=== PATIENT | male | born 1950 | race Caucasian/White ===

== ENCOUNTER 2022-10-16 09:58 | Emergency (ER) | payer MEDICARE, OTHER, SELFPAY ==
[2022-10-16 10:10] VITALS: BP 124/74; PULSE 78; RESP 18; TEMP 37; O2SAT 96; BMI 27.0
--- NOTE | 2022-10-16 16:52 | ED.GENADULT ---
HPI - General Adult General Date Seen: 10/16/22 Chief complaint: Ear/Nose/Throat Problem Stated complaint: Both ears plugged Time Seen by Provider: 10/16/22 10:19 Source: patient History of Present Illness HPI narrative: Patient is a 71-year-old male who presents with a sensation of ear fullness and difficulty hearing. He is also having some imbalance related to this. No ringing. He says that the beginning of September he was diagnosed with an ear infection on the left. He has been using drops and also took amoxicillin. He continues to use the drops but says they are not helping. Now has symptoms of this fullness in both ears but does not have pain anymore. No fevers or systemic complaints. Does not have facial pain or congestion, no sore throat, cough, or other upper respiratory symptoms. He says he has had problems with his ears in the past, he has seen Dr. Rodriguez and at least on 1 occasion he says he had some stuff ?sucked out and symptoms were completely resolved. Related Data Home Medications Medication Instructions Recorded Confirmed ascorbic acid (vitamin C) 250 mg 250 mg PO DAILY 06/02/22 09/22/22 tablet clonazepam 1 mg tablet 1 mg PO TID PRN 06/02/22 09/22/22 fluoxetine 10 mg tablet 10 mg PO DAILY 06/02/22 09/22/22 glucosamine sulfate 500 mg capsule 500 mg PO DAILY 06/02/22 09/22/22 lidocaine 5 % topical ointment 1 applic mucous membrane .Daily as 06/02/22 09/22/22 needed PRN multivitamin (Multiple Vitamins 1 tab PO QAM 06/02/22 09/22/22 tablet) Previous Rx's Medication Instructions Recorded salsalate 500 mg tablet 1,000 mg PO BID #120 tabs 06/26/22 amoxicillin 875 mg tablet 875 mg PO BID #20 tabs 09/22/22 ciprofloxacin 0.3 %-dexamethasone 4 - 6 drp otic (ear) QID 4 days 09/22/22 0.1 % ear drops,suspension #7.5 mL (Ciprodex) oxycodone 5 mg tablet 5 mg PO TID PRN pain #45 tabs 09/24/22 cephalexin 500 mg capsule 500 mg PO QID #20 caps 10/16/22 Allergies Allergy/AdvReac Type Severity Reaction Status Date / Time acetaminophen Allergy Mild Malaise Verified 09/22/22 14:53 amitriptyline Allergy Unknown afib Verified 09/22/22 14:53 metoprolol Allergy Unknown Fainting Verified 09/22/22 14:53 Review of Systems Status of ROS: Reports: 6 or more systems reviewed and unremarkable except as noted in History and below [facility] Medical History Adverse effect of non-steroidal anti-inflammatory drug (NSAID) Anticoagulation goal of INR 2 to 3 Cardiovascular disease (2007) Disorder of middle ear History of anal fissures (2014) History of colonic polyps (03/2015) History of compression fracture of spine (11/25/18) History of inflammation of sacroiliac joint (10/28/18) Opioid dependence Surgical History History of cholecystectomy (2014) History of lumbar fusion (03/25/15) History of total left hip replacement Family History Father Diabetes Mother Diabetes Social History Smoking Status: Never smoker Do you use any of these nicotine containing products: None How often do you have a drink containing alcohol: never AUDIT-C Alcohol total score: 0 Non-prescribed substance use: denies use Little interest or pleasure in doing things: not at all Feeling down, depressed, or hopeless: not at all Exam Narrative: Exam Narrative: Vital signs as noted above. In general, an alert, well-appearing patient. Head: Normocephalic, atraumatic. Eyes: Pupils are equal reactive. Extraocular movements are full. Conjunctivae are normal. ENT: Mucous membranes are moist. Throat is normal. I am unable to well visualize either TM, the canals seems slightly narrow although they are not erythematous or painful. There is purulent material obstructing both TMs, landmarks are not seen. No erythema over mastoids. Neck: Supple without lymphadenopathy. Heart: Regular rate and rhythm. No murmur or rub. Lungs: Clear bilaterally. No increased work of breathing, crackles or wheezes. Neurologic: Patient is alert and oriented to person and place. Speech is fluent. Face is symmetric. Moves all extremities equally. Affect: Normal. Skin: Warm and dry. Well perfused. Const: Vital Signs, click to edit/add: Vital Signs - 24 hr 10/16/22 10:10 Temperature 98.6 F Pulse Rate [Pulse Oximeter] 78 Respiratory Rate 18 Blood Pressure [Ri ght Upper Arm] 124/74 Pulse Oximetry 96 Oxygen Delivery Me thod Room Air Documenting provider has reviewed patient's vital signs: yes Course Course Hospital Course: I was able to speak briefly with Dr. Rodriguez, will go ahead and start an oral antibiotic, patient says he had trouble with nausea with the amoxicillin so I am going to use Keflex rather than Augmentin. Dr. Rodriguez is going to see him on Wednesday. Steroids not needed at this time. It may be that with removal of the debris in his external auditory canals his symptoms will improve. He is not toxic in appearance, not febrile. Is not having any ear pain, no evidence of mastoiditis or more ominous infection. Vital Signs Vital signs: Initial Vital Signs Temperature 98.6 F 10/16/22 10:10 Temperature Source Temporal Artery Scan 10/16/22 10:10 Pulse Rate 78 10/16/22 10:10 Pulse Rhythm 10/16/22 10:10 Respiratory Rate 18 10/16/22 10:10 Blood Pressure 124/74 10/16/22 10:10 Blood Pressure Mean 90 10/16/22 10:10 Blood Pressure Position Sitting 10/16/22 10:10 Pulse Oximetry 96 10/16/22 10:10 Oxygen Delivery Method 10/16/22 10:10 Vital Signs Temperature 98.6 F 10/16/22 10:10 Pulse Rate 78 10/16/22 10:10 Respiratory Rate 18 10/16/22 10:10 Blood Pressure 124/74 10/16/22 10:10 Pulse Oximetry 96 10/16/22 10:10 Oxygen Delivery Method 10/16/22 10:10 Temperature 98.6 F 10/16/22 10:10 Pulse Rate 78 10/16/22 10:10 Respiratory Rate 18 10/16/22 10:10 Blood Pressure 124/74 10/16/22 10:10 Pulse Oximetry 96 10/16/22 10:10 Oxygen Delivery Method 10/16/22 10:10 Discharge Plan Discharge Clinical Impression: Otitis externa Patient Disposition: Home, Self-Care Condition: Stable Instructions: Otitis Externa (ED) Additional Instructions: Antibiotic as prescribed. After reviewing your note from your visit with Dr. Rodriguez at the beginning of the month, it appears that your symptoms are mostly from an external ear infection. I talked to Dr. Rodriguez, and he would like to hold off on prednisone, he will see you in clinic on Wednesday to see if there is fluid in your canals that can be removed to help with your symptoms. Prescriptions: New cephalexin 500 mg capsule 500 mg PO QID Qty: 20 0RF No Action glucosamine sulfate 500 mg capsule 500 mg PO DAILY ascorbic acid (vitamin C) 250 mg tablet 250 mg PO DAILY fluoxetine 10 mg tablet 10 mg PO DAILY multivitamin [Multiple Vitamins] Tablet 1 tab PO QAM lidocaine 5 % ointment 1 applic mucous membrane .Daily as needed PRN Rx Instructions: Apply a thin film topically to affected area(s) daily as needed clonazepam 1 mg tablet 1 mg PO TID PRN salsalate 500 mg tablet 1,000 mg PO BID Qty: 120 5RF amoxicillin 875 mg tablet 875 mg PO BID Qty: 20 3RF ciprofloxacin-dexamethasone [Ciprodex] 0.3-0.1 % drops,suspension 4 - 6 drp otic (ear) QID 4 Days Qty: 7.5 2RF oxycodone 5 mg tablet 5 mg PO TID PRN (Reason: pain) Qty: 45 0RF Follow Up/Referrals: Charbel Dominguez MD [Primary Care Provider] - Stand Alone Forms: [facility] Info Instructions
== END 2022-10-16 11:19 | disposition home or self-care (01) ==
PROVIDERS: Emergency Provider Emergency Medicine; PCP Family Medicine
DX: H60.93 Unspecified otitis externa, bilateral (principal)
CPT/HCPCS: 99283; 99284

== ENCOUNTER 2023-01-11 09:00 | Outpatient (CLI) | payer MEDICARE, OTHER, SELFPAY ==
[2023-01-11 14:16] LABS: Albumin* 4.1 g/dL (3.3-5.0); Chloride* 104 mmol/L (96-114); Sodium* 139 mmol/L (135-149)
[2023-01-11 14:17] LABS: Potassium* 4.3 mmol/L (3.6-5.1)
[2023-01-11 14:18] LABS: Cholesterol* 233 mg/dL (90-199)
[2023-01-11 14:19] LABS: Alkaline Phosphatase* 76 U/L (40-150); Aspartate Amino Transferase* 21 U/L (12-35); Bilirubin Total* 0.8 mg/dL (0.1-1.5); Blood Urea Nitrogen* 18 mg/dL (7-30); Carbon Dioxide* 30 mmol/L (20-32); Creatinine* 0.8 mg/dL (0.5-1.5); Estimated Glomerular Filt Rate 94 ml/min; Glucose* 88 mg/dL (60-115); Total Protein* 6.6 g/dL (6.0-8.3); Triglycerides* 109 mg/dL (40-149)
[2023-01-11 14:20] LABS: Alanine Aminotransferase* 20 U/L (4-50); HDL Cholesterol* 68 mg/dL (>=40); LDL Cholesterol Calculated 143 mg/dL (<100)
[2023-01-11 14:35] LABS: PSA Screen* 3.07 ng/mL (0.10-4.00)
== END 2023-01-11 09:01 | disposition home or self-care (01) ==
PROVIDERS: PCP Family Medicine; Visit Provider Family Medicine
DX: Z00.00 Encounter for general adult medical examination without abnormal findings (principal); D64.9 Anemia, unspecified; I25.10 Atherosclerotic heart disease of native coronary artery without angina pectoris; N40.0 Benign prostatic hyperplasia without lower urinary tract symptoms; F41.9 Anxiety disorder, unspecified; Z12.5 Encounter for screening for malignant neoplasm of prostate; Z13.6 Encounter for screening for cardiovascular disorders
CPT/HCPCS: 80053; 80061; 84153

== ENCOUNTER 2023-12-03 15:17 | Outpatient (CLI) | payer OTHER, SELFPAY | END 2023-12-03 15:18 | disposition home or self-care (01) | LOC: LKVREF 15:18 | PROVIDERS: PCP Family Medicine; Visit Provider Family Medicine | DX: Z01.818 Encounter for other preprocedural examination (principal); I48.91 Unspecified atrial fibrillation | CPT/HCPCS: 80053 ==

== ENCOUNTER 2023-12-06 12:47 | Outpatient (RCR) | payer OTHER, SELFPAY ==
--- NOTE | 2023-12-06 14:16 | PT.OPEX ---
PT [facility] Eval PT [facility] Outpatient Eval Start: 12/06/23 13:57 Freq: Status: Active Protocol: Document 12/06/23 14:01 WILLIS (Rec: 12/06/23 14:14 WILLIS [id number]) E-signed By Nisha Romero DPT Physical Therapy Outpatient Evaluation Insurance Information Recert Due Date 03/05/24 Insurance Name Medicare B,[employer] Medical Diagnosis L knee OA, L knee pain scheduled for L TKA 12/13/23 Treating Diagnosis L knee pain, impaired L knee ROM, L TKA scheduled for Subjective Subjective Patient reports chronic L knee pain leading up to L TKA scheduled for 12/13/23. States he had L IOANA about 8 years ago. He no longer has a FWW, will need one issued after surgery. [place] He can stay there as long as needed after surgery. He is planning to go to OP PT at a clinic near her home - has not scheduled his OP PT yet. L knee pain rated 5-8/10. Patient feels he has a high pain tolerance that should help him with his recovery after surgery. Patient's daughter works from home and will be able to assist him as needed. Date of Last Physician Visit 10/25/23 Date of Surgery (If applicable) 12/13/23 Precautions Treatment Precautions/Contraindications hx L IOANA, heart condition, OA Assessment Assessment/Impression Patient is a 72 year old male with chronic L knee pain, impaired L knee ROM leading up to L TKA scheduled for . Patient is seen in PT today for pre-op session to provide education/information on upcoming TKA surgery, safety information/HO, equipment instruction including use of FWW, and instruction in TKA exercises. Handouts issued for exercises , patient to perform them leading up to surgery. Reviewed PT/OT plan during hospital stay. Patient is planning to stay with his daughter after surgery. She lives in a multi level home with one stair to enter. Patient thinks there is a railing to enter or will hold onto the door frame. Once inside he can mainly stay on one level but will need to go to the lower level for the bedroom they are setting up for him. He reports negotiating stairs with a step to pattern at this time. Reviewed with patient that he will be negotiating stairs with a step to pattern after surgery as well until his strength improves and he progresses with PT back to reciprocal pattern. Patient is planning to go to OP PT near his daughter's home in the [facility] - he has not scheduled this yet. Recommended he schedule this today or tomorrow. Patient will call the OP PT clinic this afternoon. Reviewed equipment needs including FWW, shower chair, toilet commode. Answered patient questions on upcoming TKA surgery and HOs issued. Patient seen today for pre-op only. OP PT after L TKA will be at another clinic. No further PT scheduled at this clinic. Plan of Care Rehabilitation Potential Good Physical Therapy Goals 1. Patient will be educated in TKA pre/post-op safety, mobility, and exercises with HOs provided within one visit with patient planning to go to OP PT in the [facility] after his L TKA surgery on . Coordination/Communication With Referral Source Frequency/Duration Pre-op eval only Patient Will Be Discharged From Therapy Completion of LTG(s),Skills Plateau,Independent w/HEP, Independently Progressing Evaluation Billing Untimed Code Treatment Minutes 35 Complexity Low Certification Information Initial Certification Date 12/06/23 Ending Certification Date 03/05/24 Provider Signature Shows Agreement With POC & Medical Necessity Physician Signature & Date Requested Please Sign/Date Here Physician Comment/Change : Physician NPI Number #
== END 2024-04-04 23:59 | disposition home or self-care (01) ==
PROVIDERS: PCP Family Medicine; Visit Provider Orthopaedic Surgery Sports Medicine
DX: M17.12 Unilateral primary osteoarthritis, left knee (principal); M25.562 Pain in left knee; Z96.652 Presence of left artificial knee joint; Z74.09 Other reduced mobility; Z51.89 Encounter for other specified aftercare
CPT/HCPCS: 97161

== ENCOUNTER 2023-12-13 06:02 | Day surgery (SDC) | payer OTHER, SELFPAY ==
[2023-12-13] VITALS (25 sets, daily range): BP systolic 99–133; BP diastolic 59–88; PULSE 61–80; RESP 14–18; TEMP 35.7–37.1; O2SAT 94–99; BMI 26.7
--- OUTSIDE RECORDS SUMMARY | 2023-12-13 06:06 | XMS_ITS | Clinical Summary ---
Author Name Unknown Organization [facility] Address [place], [place] [address] Care Team Providers Care Abstract Maker Name Role Phone Charbel Dominguez MD Primary Care Provider [phone] Allergies Active Allergy Reactions Criticality Noted Date Comments Amiodarone Other - Describe In Comment Field 10/17/2018 Terrible pain, can't speak, burning pain Amitriptyline Other - Describe In Comment Field Medium 08/21/2015 Atrial fib. syncope Hydrocodone Other - Describe In Comment Field High 06/20/2019 [place] high Melatonin Other - Describe In Comment Field 08/18/2019 Nightmares Metoprolol Other - Describe In Comment Field,*Unknown - Follow up needed Medium 08/21/2015 syncope Mirtazapine Hallucinations High 08/21/2015 Olanzapine Other - Describe In Comment Field 06/13/2019 Trouble with eyes and body pain Medications Medication Sig Dispensed Refills Start Date End Date Status FLUoxetine (PROZAC) 10 mg capsule Take 10 mg by mouth. 0 09/26/2019 Active diltiazem (CARDIZEM) 60 mg tablet Take 1 tablet by mouth once daily if needed for Other (Specify) (palpitations). 0 10/24/2019 Active clonazePAM (KLONOPIN) 1 mg tablet Take 1 mg by mouth 3 times daily if needed. 0.5mg TID PRN 0 10/24/2019 Active multivitamin (MVI) tablet Take 1 tablet by mouth once daily. 0 Active glucosam-chondroitin -diet cb25 116-100 mg cap Take 1 tablet by mouth once daily. 0 Active QUEtiapine (SEROQUEL) Take 50 mg by mouth at bedtime. 0 Active amoxicillin (AMOXIL) 500 mg capsule Take 1 capsule by mouth 3 times daily. 30 capsule 0 02/20/2020 Active Social History Tobacco Use Types Packs/Day Years Used Date Smoking Tobacco: Former Smokeless Tobacco: Never Alcohol Use Standard Drinks/Week Comments Not Currently 0 (1 standard drink = 0.6 oz pur e alcohol) PHQ-2 Answer Date Recorded PHQ-2 Score 3 12/19/2019 Social Connections Answer Date Recorded Frequency of Communication with Friends and Fami ly Not on file 11/22/2021 Financial Resource Strain Answer Date R ecorded Difficulty of Paying Living Expenses Not on file 11/22/2021 Difficulty of Paying Living Expenses Not on file 11/22/2021 Sex and Gender Information Value Date Recorded Sex Assigned at Not on file Gender Identity Not on file Sexual Orientation Not on file Obstetrics History Last Filed Vital Signs Vital Sign Reading Time Taken Comments Blood Pressure 125/80 08/18/2021 7:00 PM CDT Pulse 70 08/18/2021 7:00 PM CDT Temperature 36.7 ??C (98 ??F) 08/18/2021 4:09 PM CDT Respiratory Rate 16 08/18/2021 4:09 PM CDT Oxygen Saturation 98% 08/18/2021 7:00 PM CDT Inhaled Oxygen Concentration - - Weight 93.4 kg (206 lb) 08/18/2021 4:09 PM CDT Height 188 cm (6' 2) 08/18/2021 4:09 PM CDT Body Mass Index 26.45 08/18/2021 4:09 PM CDT Plan of Treatment Health Maintenance Due Date Last Done Comments Tdap 1961 Hepatitis C screening for age 18-79 1968 Tetanus booster 1970 Colonoscopy through age 75 1995 Lipids for age 45-75 1995 Zoster (shingles) series for age 50+ (1 of 2) 2000 Medicare Wellness for age 65+ 2015 Pneumococcal series for age 65+ (1 of 1 - PCV) 2015 BMI (ht and wt on same day) for age 18+ 11/01/2020 1 01/02/2019 Depression screening for age 12+ 12/19/2020 12/19/19 20 COVID-19 vaccine series ( - season) 2023 02/14/2021, 01/24/2021 Influenza for age 65+ 07/23/2023 Advance Directives Latest Code Status on File Code Status Date Activated Date Inactivated Comments Full Code 12/19/2019 11:44 AM 12/20/2019 1:45 PM Question Answer Comments Code Status Discussion: Not Discussed Care Teams Abstract Maker Relationship Specialty Start Date End Date Charbel Dominguez MD [address] [place] [address] PCP - General Family Practice 09/15/19
--- OUTSIDE RECORDS SUMMARY | 2023-12-13 06:06 | XMS_ITS | Clinical Summary ---
Author Name Unknown Organization [facility] Address [address] [place] [id number] Care Team Providers Care Supervisor Inspection Name Role Phone No Ref-Primary, Physician Primary Care Provider Allergies Active Allergy Reactions Criticality Noted Date Comments Amiodarone Other (See Comments) Medium 10/17/2018 Terrible pain, can't speak, burning pain Amitriptyline Other (See Comments) Medium 08/21/2015 syncope Hydrocodone Other (See Comments) Medium 06/20/2019 [place] high Melatonin Other (See Comments) Low 08/18/2019 Nightmares Metoprolol Dizziness Medium 08/21/2015 syncope Mirtazapine Medium 08/21/2015 Other reaction(s): Hallucinations Olanzapine Other (See Comments) Medium 06/13/2019 Trouble with eyes and body pain Medications Medication Sig Dispensed Refills Start Date End Date Status glucosamine-chondroitin 500-400 MG CAPS per capsule Take 1 capsule by mouth daily 0 Active Multiple Vitamins-Minerals (MULTIVITAMIN & MINERAL PO) Take 1 tablet by mouth daily 0 Active warfarin ANTICOAGULANT (COUMADIN) 4 MG tablet Take 8 mg by mouth daily 0 Active clonazePAM (KLONOPIN) 0.5 MG tablet Take 0.5 mg by mouth 3 times daily as needed for anxiety 0 Active Polyvinyl Alcohol-Povidone (CLEAR EYES NATURAL TEARS) 5-6 MG/ML SOLN Place 1 drop into both eyes 3 times daily as needed 0 Active QUEtiapine (SEROQUEL) 50 MG tablet Take 50 mg by mouth PRN 0 08/21/2019 Active Active Problems Problem Noted Date Diagnosed Date Major depressive disorder, recurrent episode, mo derate 08/19/2019 Recurrent major depressive disorder (H24) 2017 Spinal stenosis of lumbar region 09/23/2018 Overview: Added automatically from request for surgery [id number] History of falling 08/31/2018 Anal fissure 07/13/2018 Overweight 07/13/2018 Opioid dependence in remission 06/28/2018 Overview: Pain Diagnosis- OA, recent hip replacement 06/2018- hope to taper off soon Should be seen in the clinic every twelve weeks. Currently on a taper: no. Plan for flares of chronic pain ED and UC: Opioid medication will not be given in the ER or Urgent Care unless there is a medical emergency unrelated to chronic pain. Limit to 3 day supply Refills: Refills will only be given at a scheduled visit. 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 lumbar back fusion, degenerative arthritis throughout his spine from cervical to lumbar spine. He also struggles with neuropathic pain Should be seen in the clinic every twelve weeks. Currently on a taper: no. Plan for flares of chronic pain : prays, oxycodone prn ED and UC: Opioid medication will not be given in the ER or Urgent Care unless there is a medical emergency unrelated to chronic pain. Limit to 3 day supply Refills: Refills will only be given at a scheduled visit. 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 Atrial fib. IMO Update 09/01 Gastroesophageal reflux disease 05/10/2008 Immunizations Name Administration Dates Next Due DTAP (<7y) 05/02/2010 Influenza (High Dose) 3 valent vaccine 8,09/21/2017,08/26/2016 Influenza Vaccine >6 months,quad, PF 08/21/2019, 11/01/2015 TDAP Vaccine (Adacel) 05/02/2010 Family History Medical History Relation Comments Diabetes Father Diabetes Mother Relation Status Comments Father Mother Social History Tobacco Use Types Packs/Day Years Used Date Smoking Tobacco: Never Smokeless Tobacco: Never Tobacco Cessation:Counseling Given: Yes Alcohol Use Standard Drinks/Week Comments Not Currently 0 (1 standard drink = 0.6 oz pur e alcohol) PHQ-2 Answer Date Recorded PHQ-2 Score 2 12/06/2019 Adolescent Education Answer Date Record ed Getting School Help Needed Not on file 08/29 Sex and Gender Information Value Date Recorded Sex Assigned at Not on file Gender Identity Not on file Sexual Orientation Not on file Last Filed Vital Signs Vital Sign Reading Time Taken Comments Blood Pressure 138/80 10/20/2019 1:29 PM CIRCUIT BREAKER MECHANIC Pulse 73 10/20/2019 1:29 PM CIRCUIT BREAKER MECHANIC Temperature 36.7 ??C (98 ??F) 10/20/2019 1:29 PM CIRCUIT BREAKER MECHANIC Respiratory Rate 18 08/16/2019 1:08 PM CDT Oxygen Saturation 95% 10/20/2019 1:29 PM CIRCUIT BREAKER MECHANIC Inhaled Oxygen Concentration - - Weight 101.2 kg (223 lb) 10/20/2019 1:29 PM CIRCUIT BREAKER MECHANIC Height 188 cm (6' 2) 10/20/2019 1:29 PM CIRCUIT BREAKER MECHANIC Body Mass Index 28.63 10/20/2019 1:29 PM CIRCUIT BREAKER MECHANIC Plan of Treatment Health Maintenance Due Date Last Done Comments ADVANCE CARE PLANNING 1950 ANNUAL REVIEW OF HM ORDERS 1950 CT COLONOGRAPHY 1950 DEPRESSION ACTION PLAN 1950 FIT 1950 FLEX SIG 1950 sDNA (Cologuard) 1950 COVID-19 Vaccine (#1) 06/14/1951 COLONOSCOPY 1960 COLORECTAL CANCER SCREENING 1960 HEPATITIS C SCREENING 1968 HEPATITIS A IMMUNIZATION (1 of 2 - Risk 2-dose series) 1969 LIPID 1985 ZOSTER IMMUNIZATION (1 of 2) 2000 RSV VACCINE ( & 60+) (1 - 1-dose 60+ series) 2010 AORTIC ANEURYSM SCREENING (SYSTEM ASSIGNED) 2015 MEDICARE ANNUAL WELLNESS VISIT 2015 Pneumococcal Vaccine: 65+ Years (1 of 1 - PCV) 2015 DTAP/TDAP/TD IMMUNIZATION (3 - Td or Tdap) 05/02/2020 05/02/2010, 05/02/2010 PHQ-9 06/05/2020 12/06/2019, 1107/2019, 09/14/2019 FALL RISK ASSESSMENT 08/16/2020 08/16/2019 INFLUENZA VACCINE (#1) 2023 9, 09/07/2018, 09/21/2017, Additional history exists HPV IMMUNIZATION Aged Out No longer e ligible based on patient's age to complete this topic IPV IMMUNIZATION Aged Out No longer e ligible based on patient's age to complete this topic MENINGITIS IMMUNIZATION Aged Out No l onger eligible based on patient's age to complete this topic RSV MONOCLONAL ANTIBODY Aged Out No l onger eligible based on patient's age to complete this topic Advance Directives For more information, please contact: [phone] Latest Code Status on File Code Status Date Activated Date Inactivated Comments Full Code 08/03/2019 1:22 PM Question Answer Comments Code status determined by: Discussion wi th patient/legal decision maker Code Status History Code Status Date Activated Date Inactivated Comments Full Code 08/02/2019 5:13 PM 08/03/2019 1:22 PM Question Answer Comments Code status determined by: Discussion wi th patient/legal decision maker Care Teams Supervisor Inspection Relationship Specialty Start Date End Date No Ref-Primary, Physician PCP - General 10/23/19
--- OUTSIDE RECORDS SUMMARY | 2023-12-13 06:06 | XMS_ITS | Referral Summary ---
Author Name Unknown Organization [facility] Address [address] [place] [id number] Care Team Providers Care Veterinarian Helper Name Role Phone No Ref-Primary, Physician Primary Care Provider Allergies Active Allergy Reactions Criticality Noted Date Comments Amiodarone Other (See Comments) Medium 10/17/2018 Terrible pain, can't speak, burning pain Amitriptyline Other (See Comments) Medium 08/21/2015 syncope Hydrocodone Other (See Comments) Medium 06/20/2019 Imperial high Melatonin Other (See Comments) Low 08/18/2019 [...] Overview: Added automatically from request for surgery [id number] History of falling 08/31/2018 Anal fissure 07/13/2018 [...] Overview: Added automatically from request for surgery [id number] manager terminal (current) use of opiate analgesic 07/2017 Overview: [...] disorder 06/16/2017 Overview: Has est care with [facility] Personal history of traumatic brain injury 04/02 [...] PF 08/21/2019, 11/01/2015 TDAP Vaccine (Adacel) 05/02/2010 Social History Tobacco Use Types Packs/Day Years [...] Comments Blood Pressure 138/80 10/20/2019 1:29 PM FREIGHT RATE SPECIALIST Pulse 73 10/20/2019 1:29 PM FREIGHT RATE SPECIALIST Temperature 36.7 ??C (98 ??F) 10/20/2019 1:29 PM FREIGHT RATE SPECIALIST Respiratory Rate 18 08/16/2019 1:08 PM CDT Oxygen Saturation 95% 10/20/2019 1:29 PM FREIGHT RATE SPECIALIST Inhaled Oxygen Concentration - - Weight 101.2 kg (223 lb) 10/20/2019 1:29 PM FREIGHT RATE SPECIALIST Height 188 cm (6' 2) 10/20/2019 1:29 PM FREIGHT RATE SPECIALIST Body Mass Index 28.63 10/20/2019 1:29 PM FREIGHT RATE SPECIALIST Plan of Treatment Not on file Advance Directives For more information, please contact: [phone] Latest Code Status on File Code Status Date Activated Date Inactivated Comments Full Code 08/03/2019 1:22 PM Question Answer Comments Code status determined by: Discussion wi th patient/legal decision maker Code Status History Code Status Date Activated Date Inactivated Comments Full Code 08/02/2019 5:13 PM 08/03/2019 1:22 PM Question Answer Comments Code status determined by: Discussion wi th patient/legal decision maker Care Teams Veterinarian Helper Relationship Specialty Start Date End Date No Ref-Primary, Physician PCP - General 10/23/19
--- OUTSIDE RECORDS SUMMARY | 2023-12-13 06:06 | XMS_ITS | Clinical Summary ---
Author Name Unknown Organization [facility] Address [address], [place] [address] Care Team Providers Care Media Consultant Outside Sales Name Role Phone Dixon Velázquez MD Primary Care Provider Source Comments You are receiving this document as you are listed as the primary care provider,follow-up provider, or the patient has been referred to you for consultation.This is in compliance with the Medicare and[facility] Cent[facility] EHR Incentive Program,which states Providers who transition their patient to another setting of careor provider of care or refers their patient to another provider of care shouldprovide summary care record for each transition of care or referral. [facility] Allergies Active Allergy Reactions Criticality Noted Date Comments Amitriptyline Other, see comments 01/31/2018 Atrial fib. Melatonin Other, see comments 08/18/2019 Nightmares Metoprolol Unknown 08/19/2019 Medications Medication Sig Dispensed Refills Start Date End Date Status HYDROcodone-acetamin ophen (NORCO) 5-325 MG tablet Take 1 Tab by mouth every 4 hours as needed for Pain. 10 Tab 0 01/31/2018 Active sucralfate (CARAFATE) 1 GM/10ML suspension Take 1 g by mouth 4 times a day. 0 Active warfarin (COUMADIN) 4 MG tabletIndications:Af ib goal INR 2-3 Take 8 mg by mouth daily. Indications: Afib goal INR 2-3 0 Active lidocaine (LMX) 4 % creamIndications:Judi n Apply topically every 24 hours as needed. Indications: Pain 0 Active Glucosamine-Chondroi tin 500-400 MG tablet Take 1 Tablet by mouth daily. 0 Active multivitamin with minerals (CERTAVITE,MYADEC) tablet Take 1 Tablet by mouth daily. 0 Active polyvinyl alcohol (ARTIFICIAL TEARS) 1.4 % eye drop solution Place 1 Drop into both eyes every 6 hours as needed for Dry Eyes. 0 Active LORazepam (ATIVAN) 0.5 MG tablet Take 1 Tablet by mouth daily as needed for Anxiety. 10 Tablet 0 08/21/2019 Active QUEtiapine (SEROQUEL) 50 MG tablet Take 1 Tablet by mouth at bedtime as needed (Sleep). 30 Tablet 0 08/21/2019 Active Active Problems Problem Noted Date Diagnosed Date Major depressive disorder, recurrent episode, mo derate 08/19/2019 DOMINIQUE (generalized anxiety disorder) 08/19/2019 Immunizations Name Administration Dates Next Due Influenza IIV4 (Quadrivalent) 0.5mL (90229) 07/25 Social History Tobacco Use Types Packs/Day Years Used Date Smoking Tobacco: Former Alcohol Use Standard Drinks/Week Comments No 0 (1 standard drink = 0.6 oz pur e alcohol) Sex and Gender Information Value Date Recorded Sex Assigned at Not on file Gender Identity Not on file Sexual Orientation Not on file Last Filed Vital Signs Vital Sign Reading Time Taken Comments Blood Pressure 118/73 08/21/2019 7:00 AM CDT Pulse 74 08/21/2019 7:00 AM CDT Temperature 36.6 ??C (97.9 ??F) 08/21/2019 7:00 AM CD T Respiratory Rate 16 08/21/2019 7:00 AM CDT Oxygen Saturation 97% 08/21/2019 7:00 AM CDT Inhaled Oxygen Concentration - - Weight 94.1 kg (207 lb 6.4 oz) 08/18/2019 6:39 P M CDT Height 188 cm (6' 2) 08/18/2019 6:39 PM CDT Body Mass Index 26.63 08/18/2019 6:39 PM CDT Plan of Treatment Health Maintenance Due Date Last Done Comments Colon Cancer Screening Plan Due 1950 Hep C Screening (Preventive Services) 1950 Medicare Annual Wellness Visit 1950 COVID-19 Vaccine (#1) 06[birth year]14/1951 Cholesterol 1985 Zoster/Shingles (1 of 2) 2000 Pneumococcal 65+ Yrs (1 - PCV) 2015 DTaP/Tdap/Td (3 - Tdap) 05/02/2020 05/02/2010, 05/02 Influenza (#1) 2023 08/21/2019, 08/22, 08/26/2016, Additional history exists HepA Aged Out No longer eligi ble based on patient's age to complete this topic HepB Aged Out No longer eligi ble based on patient's age to complete this topic Hib Aged Out No longer eligi ble based on patient's age to complete this topic IPV (Polio) Aged Out No longer eligi ble based on patient's age to complete this topic MCV4 Aged Out No longer eligi ble based on patient's age to complete this topic Advance Directives Latest Code Status on File Code Status Date Activated Date Inactivated Comments Full Code 08/18/2019 8:04 PM 08/21/2019 2:40 PM Care Teams Media Consultant Outside Sales Relationship Specialty Start Date End Date Dixon Velázquez MD [address] [facility] [place] [id number] PCP - General 12/30/1998
--- OUTSIDE RECORDS SUMMARY | 2023-12-13 06:06 | XMS_ITS | Continuity of Care Document ---
Author Name Unknown Organization [facility] Address [address] [place] [address] Phone Care Team Providers Care Railroad Signal Operator Name Role Phone Will MD ARRIAZA, Ford Unavailable Unavailabl e Allergies, Adverse Reactions, Alerts Substance Reaction Status Criticality amiodarone Other (see comments) Active No Info rmation amitriptyline Other (see comments)(moderate) Active No Information hydrocodone Other (see comments)(severe) Active No Information melatonin Other (see comments)(mild) Active N o Information metoprolol Other (see comments)(moderate) Active No Information mirtazapine Hallucinations(severe) Active No In formation olanzapine Other (see comments) Active No Info rmation Medications Medication Instructions Dosage Effective Dates (start - stop) Status Comments clonazepam 0.5 mg tablet Take 1 tab three times daily as needed for anxiety - Active fluoxetine 10 mg capsule Take 1 capsule (10 mg total) by mouth daily. - Active quetiapine 50 mg tablet Take 1 tablet (50 mg total) by mouth at bedtime. - Active oxycodone 5 mg tablet Take 5-10 mg by [facility] every 4 (four) hours as needed. - Active glucosamine sulf dipotassium Cl 500 mg-chondroitin sulf 400 mg tablet Take 1 tablet by mouth daily. - Active multivitamin tablet Take 1 tablet by mouth. - Active Procedures Procedure Date OFFICE/OUTPATIENT VISIT, EST OFFICE/OUTPATIENT VISIT, EST DAST 15-30 MIN OFFICE/OUTPATIENT VISIT, NEW Advance Directives Directive Yes / No Effective Date File Name No Information Encounters Encounter Description Practice Location Reason(s) For Visit Diagnoses Date Provider Providers Copied on Encounter [facility], [address] [place], [id number] , [place] tel: [phone] [facility] [place] No Information 2 Will Ford. [address] [place], [id number] , [place]. tel: [phone] OFFICE/OUTPA TIENT VISIT, EST [facility], [address] [place], [id number] , [place] tel: [phone] [facility] Back Pain (chief complaint) Trochanteric bursitis, left hipLong term (current) use of opiate analgesicPostlamin ectomy syndrome, not elsewhere classifiedPain in right shoulderBilateral primary osteoarthritis of kneePain in left shoulder 1 Ingram Hugo. [facility], [address], [place], [address], [place]. tel: [phone] Referring Provider: [facility] [address], [place], [address]. tel:[phone] [facility], [address] [place] [address] [place], [id number] , [place] tel: [phone] [facility] Pain in left shoulder 0 Will Ford. [address] [place], [id number] , [place]. tel: [phone] OFFICE/OUTPA TIENT VISIT, EST [facility], [address] [place], [id number] , [place] tel: [phone] [facility] Emily Back Pain (chief complaint) Trochanteric bursitis, left hipLong term (current) use of opiate analgesicPostlamin ectomy syndrome, not elsewhere classifiedPain in right shoulderBilateral primary osteoarthritis of kneePain in left shoulder 0 Ingram Hugo. [facility], [address], [place], [address], [place]. tel: [phone] Referring Provider: Charbel Dominguez, [facility] [address], [place], [address]. tel:[phone] OFFICE/OUTPA TIENT VISIT, NEW [facility], [address] [place], [place], [id number] , [place] tel:[phone] [facility] Back Pain (chief complaint) Postlaminectomy syndrome, not elsewhere classifiedPain in right shoulderBilateral primary osteoarthritis of kneeEncounter for screening for other disorderTrochanter ic bursitis, left hipLong term (current) use of opiate analgesic Sep-2 0 Juan Jose Arias. [facility], [address], [place], [address], [place]. tel:[phone] Referring Provider: Charbel Dominguez [facility] [address], [place], [address]. tel:[phone] Family History Family Member Type Diagnosis Age At Onset No Information Payers Payer name Insurance type Covered republican ID Authoriza tion(s) [employer] To 16 [id number] Social History Type Description Quantity Date Captured Comments Sex Male Smoking Status No Information Chief Complaint And Reason For Visit No Information Reason For Referral Reason For Referral No Information History Of Present Illness Encounter Date Complaint History Of Prese nt Illness Back Pain Severity level i s 7. Duration: chronic. The problem is fluctuating. It occurs intermittently. Location of pain is arms.The patient describes the pain as an ache and sharp. Symptoms are aggravated by lifting, lying/rest and movement. Symptoms are relieved by heat, ice, pain meds/drugs and standing. Back Pain (comments) Mr. Yoshi kirkpatrick is a pleasant 70 y/o gentleman presents to clinic for his ongoing shoulder and back pain. Recent left shoulder pain, possibly d/t RC tendinopathy and impingement syndrome. He is s/p L2-4 Lumbar fusion and has recently gone back to his surgeon for x-rays. He was informed that his fusion went as well as possible and he continues to heal as expected. On 11/18, a left subacromial bursa injection was ordered. He reports that his left shoulder has almost completely healed itself but his right shoulder is the most bothersome. He reports shoulder injections at [facility] (Dr. Anand Bahena) and [facility] around 2.5 years ago with moderate relief. His left hip pain has improved. He continues to use oxycodone through his PCP and tries to take it as little as possible. Reports current medication regimen provides 45% pain relief and allows increased functionality. Denies side effects from current medication regimen. No other concerns today. Back Pain Severity level i s 5. Duration: chronic. The problem is fluctuating. It occurs intermittently. Location of pain is lower back and shoulders. Pain is radiated to the right thigh.The patient describes the pain as sharp and tingling. Symptoms are aggravated by lifting and movement. Symptoms are relieved by pain meds/drugs, stretching, rest and sitting. Back Pain (comments) Mr. Yoshi kirkpatrick presents for a follow up after initial consult for his ongoing shoulder and back pain. Recent left shoulder pain, possibly d/t RC tendinopathy based on ortho consult. He is s/p L2-4 Lumbar fusion. States the left shoulder pain has been worse since his consult in July. Details falling about 3 weeks ago. The fall flared his shoulder and back pain. He thinks he bruised his ribs and possibly messed up his fusion. Back pain radiates into the medial aspect of the right thigh and lower leg. Notes tingling in the right leg. He has plans to start PT after the holiday season for general strengthening. He inquires about neuromodulation for the shoulder and back. No other concerns today. Past Treatments: Right shoulder injxns, LESI's, L2-4 fusion, Left IOANA.Current Treatments: 5 mg oxycodone max 1/day, managed by his PCP. Back Pain Severity level i s 4. Duration: chronic. The problem is worsening. It occurs intermittently. Location of pain is lower back and BL Shoulders. Pain is radiated to the left calf, right calf, left foot, right foot, left thigh and right thigh.The patient describes the pain as an ache. Symptoms are aggravated by lifting. Symptoms are relieved by pain meds/drugs, physical therapy, stretching and walking. Back Pain (comments) Mr. Yoshi kirkpatrick presents for initial consult for his ongoing shoulder, back, and knee pain. Referred to [facility] by Charbel Shepherd MD. Overall, his pains have been improving recently and he is enjoying his fall activities like bow hunting. Has had several right shoulder injections for OA and has decided against TSA since it is improving. Recent left shoulder pain, possibly d/t RC tendinopathy based on ortho consult, but this has improved as well. He is s/p L2-4 Lumbar fusion for what sounds like an upper lumbar left sided radiculopathy. Also had a left hip replacement and admits to not being compliant with rehab initially. Referred to [facility] for reasons unbeknownst to him but is open to discussing interventions that will help him function during the fall which is the time of year where he is the most active. Fortunately, he is overall doing well. He was open and honest about his past drug abuse and anger issues. 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 No other concerns today.Past Treatments: Right shoulder injxns, LESI's, L2-4 fusion, Left THACurrent Treatments: 5 mg oxycodone max 1/day (30 tabs lasts about 45 days) Functional Status Date Functional Assessmen t No Information Instructions Date Instruction Additional Infor mation No Information Assessments Type Assessment Date No Information Patient Care Teams Name Effective Dates (start - stop) Status Members No Information
--- OUTSIDE RECORDS SUMMARY | 2023-12-13 06:07 | XMS_ITS | Encounter Summary ---
Author Name Unknown Organization [facility] Address [address] [place] [address] Care Team Providers Care Commission Broker Name Role Phone Meg Beck M.D. Primary Care Provider [phone] Encounter Details Date Type Department Care Team (Late st Contact Info) Description 05/06/2023 Orders Only [facility] Meg Beck M.D. [address] [place] [phone] Social History Tobacco Use Types Packs/Day Years Used Date Smoking Tobacco: Never Passive Smoke Exposure: Past Smokeless Tobacco: Never Comments:Has had a lot of se condhand smoke exposure Alcohol Use Standard Drinks/Week Comments No 0 (1 standard drink = 0.6 oz pur e alcohol) sober since 1998 Humiliation, Afraid, Rape, and Kick questionnair e Answer Date Recorded Within the last year, have y ou been afraid of your partner or ex-partner? No 03/01/2023 Within the last year, have y ou been humiliated or emotionally abused in other ways by your partner or ex-partner? No Within the last year, have y ou been kicked, hit, slapped, or otherwise physically hurt by your partner or ex-partner? No 03/01/2023 Within the last year, have y ou been raped or forced to have any kind of sexual activity by your partner or ex-partner? No 03/01/2023 Social Connection and Isolat ion Panel [NHANES] Answer Date Recorded In a typical week, how many times do you talk on the phone with family, friends, or neighbors? More than three times a week 03/01/2023 How often do you get togethe r with friends or relatives? More than three times a week 03/01/2023 How often do you attend chur ch or episcopal services? More than 4 times per year 03/01/2023 Do you belong to any clubs o r organizations such as moravian groups, unions, fraternal or athletic groups, or school groups? Yes 03/01/2023 How often do you attend meet ings of the clubs or organizations you belong to? More than 4 times per year 03/01/2023 Are you , , di vorced, , never , or living with a partner? 03/01/2023 AUDIT-C Answer Date Recorded Q1: How often do you have a drink containing alc ohol? Never 03/01/2023 Average Number of Drinks Not on file 023 Frequency of Binge Drinking Not on file 02/20 Overall Financial Resource Strain (CARDIA) Answe r Date Recorded How hard is it for you to pa y for the very basics like food, housing, medical care, and heating? Not hard at all 03/01/2023 PHQ-2 Answer Date Recorded PHQ-2 Score 0 03/01/2023 [facility] - Occupational Stress Questionnaire Answer Date Recorded Do you feel stress - tense, restless, nervous, or anxious, or unable to sleep at night because your mind is troubled all the time - these days? Not at all 03/01/2023 Exercise Vital Sign Answer Date Recorde d On average, how many days pe r week do you engage in moderate to strenuous exercise (like a brisk walk)? 3 days 03/01/2023 On average, how many minutes do you engage in exercise at this level? 20 min 03/01/2023 Hunger Vital Sign Answer Date Recorded Within the past 12 months, y ou worried that your food would run out before you got the money to buy more. Never true 03/01/20 23 Within the past 12 months, t he food you bought just didn't last and you didn't have money to get more. Never true 03/01/2023 PRAPARE - Transportation Answer Date Re corded In the past 12 months, has l ack of transportation kept you from medical appointments or from getting medications? No 02/20 In the past 12 months, has l ack of transportation kept you from meetings, work, or from getting things needed for daily living? No 03/01/2023 Housing Stability Vital Sign Answer Dave e Recorded In the last 12 months, was t here a time when you were not able to pay the mortgage or rent on time? No 03/01/2023 Number of Places Lived in the Last Year Not on f ile 03/01/2023 In the last 12 months, was t here a time when you did not have a steady place to sleep or slept in a jail (including now)? No 03/01/2023 Depression Answer Date Recor ded PHQ-9 Total Score (max 27) 0 03/01 Nutrition Answer Date Recorded Nutrition: EVOO Fat Source No 03/01 On average, how many serving s of fruits and vegetables do you eat per day (serving size is equal to 1 cup or approximately the size of a tennis ball)? 2-3 03/01/2023 Dental Answer Date Recorded Dental: Regular Dentist No 03/01/20 Employment Answer Date Recorded Employment status Retired 03/01/2023 Education Answer Date Recorded What is the highest level of school you have completed or the highest degree you have received? 12th grade 03/01/2023 Sex and Gender Information Value Date Recorded Sex Assigned at Male 09/07/2018 12:32 PM CDT Gender Identity Male 09/07/2018 12:32 PM CDT Sexual Orientation Straight 09/07/2018 12 :32 PM CDT documented as of this encounter Plan of Treatment Not on file documented as of this encounter Visit Diagnoses Not on filedocumented in this encounter Additional Health Concerns Assessment Noted Time PHQ-9 Depression Total Score: 0 03/01/20 12:50 PM CDT documented as of this encounter Care Teams Commission Broker Relationship Specialty Start Date End Date Meg Beck M.D. MARILUZ: [phone] [address] [place] [phone] PCP - General 05/06/17 documented as of this encounter
--- OUTSIDE RECORDS SUMMARY | 2023-12-13 06:07 | XMS_ITS ---
Author Name Unknown Organization [facility] Address [address] [place] [address] Care Team Providers Care Cat Sitter Name Role Phone Unavailable Unavailable Unavailable Surgery Details Not on file Complications Check Surgery Details section. Procedure Estimated Blood Loss Check Surgery Details section. Procedure Findings Check Surgery Details section. Procedure Specimens Taken Check Surgery Details section.
--- OUTSIDE RECORDS SUMMARY | 2023-12-13 06:07 | XMS_ITS | Referral Summary ---
Author Name Unknown Organization [facility] Address [address] [place] [address] Care Team Providers Care Landcare Facilitator Name Role Phone Meg Beck M.D. Primary Care Provider [phone] Source Comments Patient records contain information from all sites at [facility]. For routine questions regarding patient records, call [phone] during business hours, M-F 8:00 AM - 5:00 PM Central Time. Record requests for emergency care only can be directed to [phone] at any time.[facility] Encounters Date Type Department Care Team Description 11/11/2023 Orders Only [facility] PCP [facility] MNT Meg Beck M.D. from Last 3 Months Allergies Active Allergy Reactions Criticality Noted Date Comments Amiodarone Other (see comments) 10/17/2018 Terrible pain, can't speak, burning pain Amitriptyline Other (see comments) Medium 08/21/2015 syncope Gabapentin Other (see comments) 05/31/2023 Reports being on a high/trance out of body when taking medication. Hydrocodone Other (see comments) High 06/20/2019 [place] high Melatonin Other (see comments) Low 08/18/2019 Nightmares Nightmares Metoprolol Other (see comments) Medium 08/21/2015 syncope Mirtazapine Hallucinations High 08/21/2015 Olanzapine Other (see comments) 06/13/2019 Trouble with eyes and body pain Medications Medication Sig Dispensed Refills Start Date End Date Status dilTIAZem (CARDIZEM) 60 mg tablet Take 60 mg by mouth every 6 (six) hours. As needed, per patient 0 Active oxyCODONE (ROXICODONE) 5 mg immediate release tablet Take 5-10 mg by mouth every 4 (four) hours as needed. 0 03/15/2020 Active multivitamin tablet Take 1 tablet by mouth. 0 Active dilTIAZem 2%-hydrocortisone 1%-lidocaine 1% in petrolatumIndicatio ns:Fissure Anal Apply rectally at least 2 times daily. May use up to 4 times daily 60 g 3 10/11/2020 Active Additional Information Patient not taking.Reported on 05/31/2023 glucosamine sulfate (GLUCOSAMINE) 500 mg capsule 0 Active lidocaine (XYLOCAINE) 5 % ointment Daily as needed 0 06/23/2019 Active oxyCODONE-acetamino phen (PERCOCET) 5-325 mg per tablet Every 4 Hours as needed 0 06/23/2019 Active celecoxib (CeleBREX) 200 mg capsule Take 200 mg by mouth daily. 0 06/02/2022 Active Ciprodex 0.3-0.1 % otic suspension INSTILL 4 TO 6 DROPS INTO THE EAR(S) 4 TIMES DAILY FOR 4 DAYS 0 10/02/2022 Active ascorbic acid, vitamin C, (VITAMIN C) 500 mg tablet Take by mouth daily. Two tablets daily, unsure of exact dose 0 Active clonazePAM (KlonoPIN) 0.5 mg tabletIndications:A nxiety Generalized Disorder TAKE 1 TABLET BY MOUTH THREE TIMES DAILY NEEDED FOR ANXIETY 90 tablet 5 09/06/2023 Active FLUoxetine (PROzac) 10 mg capsuleIndications: Anxiety Generalized Disorder,Depression Major Recurrent (HCC) Take 1 capsule (10 mg total) by mouth daily. 30 capsule 8 09/06/2023 Active QUEtiapine (SEROquel) 50 mg tabletIndications:A nxiety Generalized Disorder,Depression Major Recurrent (HCC) Take 1 tablet (50 mg total) by mouth at bedtime. 30 tablet 8 09/06/2023 Active Active Problems Problem Noted Date Diagnosed Date Preoperative Exam 10/17/2022 Overview: Added automatically from request for surgery [id number] Radiculopathy Lumbar 10/12/2018 Depression Major Recurrent 09/28/2018 Stenosis Spinal Lumbar With Neurogenic Claudicat ion 09/23/2018 Overview: Added automatically from request for surgery [id number] Spinal Stenosis Lumbar Regio n Without Neurogenic Claudication 09/23/2018 Overview: Added automatically from request for surgery [id number] History Of Falling 08/31/2018 Fissure Anal 07/13/2018 Overweight Body Mass Index 25-29.9 Adult 018 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 Primary Osteoarthritis Hip Left 03/14/2018 Overview: Added automatically from request for surgery [id number] Arthritis Hip 03/14/2018 Overview: Added automatically from request for surgery [id number] Fpc Use Of Opiate Analgesic 06/30/2017 Overview: Overview: Pain Diagnosis : end-stage osteoarthritis of [...] be given at a scheduled visit. Chronic Pain Syndrome 06/16/2017 Overview: Overview: Has est care with [facility] Injury Brain Traumatic Personal History 04/02/20 17 Osteoarthritis 04/02/2017 Neuropathy 03/16/2017 Neuralgia And Neuritis Unspecified 03/16/2017 Primary Osteoarthritis Shoulder Right 06/15/2016 Overview: Overview: severe Non Inflammatory Arthritis NOS 06/15/2016 Overview: severe Atrial Fibrillation Paroxysmal 08/08/2015 Overview: Fibrillation Atrial Paroxysmal (PAF) Degeneration Disc Cervical 08/02/2015 Overview: Overview: DDD with disc space narrowing at C3-4, C5-6 and C6-7 with associated anterior and posterior spurring Fusion Lumbar Spine Status Post 03/25/2015 Anxiety Generalized Disorder 02/15/2015 Pain Hip Right 02/08/2015 Laminectomy Lumbar Status Post 12/04/2014 Familial Hemiplegic Migraine (FHM) 10/26/2014 Hemiplegic Migraine Not Intr actable Without Status Migrainosus 10/26/2014 Pain Back 12/21/2013 Degeneration Disc Thoracic 11/21/2012 Overview: Overview: Mild to moderate multilevel degenerative disc disease, no acute findings (not unusual for the patient's age) - per x-ray report 11/21/12 Degeneration Disc Thoracic 11/21/2012 Overview: DDD with disc space narrowing at C3-4, C5-6 and C6-7 with associated anterior and posterior spurring Mild to moderate multilevel degenerative disc disease, no acute findings (not unusual for the patient's age) - per x-ray report 11/21/12 Cardiovascular Disease 07/05/2008 Overview: Overview: 01/20/08 chest pain syndrome at rest, 01/17/08 mild pumonary insufficiency, trace aortic and mitral regurgitation. Atrial fib. IMO Update 09/01 Gastroesophageal Reflux Disease NOS 05/10/2008 Gastroesophageal Reflux Disease 05/10/2008 Primary Osteoarthritis Hip Bilateral Arthroplasty Total Hip Replacement Status Post L eft Resolved Problems Problem Noted Date Diagnosed Date Resolved Date Anxiety Generalized Disorder 08/19/2019 11/30/2022 Depression Major Recurrent Moderate 08/19/2019 11/30/2022 Geophysicist Anticoagulant Treatment [Z79.01] 11/08/2018 04/10/2019 Monitoring For Therapeutic Drug Therapy 06/30/2017 04/10/2019 Insomnia Subjective Complaint 02/01/2015 12/28/2018 Immunizations Name Administration Dates Next Due DTaP (Infanrix, Tripedia) 05/02/2010 Influenza high dose QV(65 ye ars or older) (PF) 01/11/2023,10/09/2021 PCV13 03/15/2020 PPSV23 04/14/2021 Tdap 11/26/2020,03/15/2020 influenza high dose (65 year s or older) (PF) 09/07/2018,09/21/2017,08/26/2016 influenza vaccine quad (FLUZONE/FLUARIX) (6 months and older)(PF) 08/21/2019,09/07/2018,09/21/2017, 016,11/01/2015 Social History Tobacco Use Types Packs/Day Years Used Date Smoking Tobacco: Never Passive Smoke Exposure: Past Smokeless Tobacco: Never Tobacco Cessation:Counseling Given: Not Answered Comments:Has had a lot of secondhand smoke exposure Alcohol Use Standard Drinks/Week Comments [...] week 03/01/2023 How often do you attend [facility] or sikh services? More than 4 times per year 03/01/2023 Do you belong to any clubs o r organizations such as episcopal groups, unions, fraternal or athletic groups, or [...] Answer Date Recorded PHQ-2 Score 0 03/01/2023 [facility] - Occupational [...] place to sleep or slept in a custodial (including now)? No 03/01/2023 Depression Answer Date [...] Orientation Straight 09/07/2018 12 :32 PM CDT Last Filed Vital Signs Vital Sign Reading Time Taken Comments Blood Pressure 120/80 05/31/2023 1:53 PM CDT Pulse 60 05/31/2023 1:53 PM CDT Temperature 36 ??C (96.8 ??F) 09/17/2022 10:07 AM CDT Respiratory Rate 18 11/10/2021 10:13 AM MANAGER TRAINING AND DEVELOPMENT Oxygen Saturation 97% 04/26/2019 9:51 AM CDT Inhaled Oxygen Concentration - - Weight 102 kg (225 lb 1.4 oz) 09/17/2022 10:07 A M CDT Height 189.9 cm (6' 2.76) 09/17/2022 10:07 AM C DT Body Mass Index 28.31 09/17/2022 10:07 AM CDT Plan of Treatment Not on file Medical Devices Implanted Type Area Proofer Device Identifier Shelf Expiration Date Model / Serial / Lot Grft Grf Dbm Pst Pl 5 - [id number] - [id number] Implanted:Qt y: 1 on 10/12/2018 by Homer Talamantes M.D. at [facility] Bone or Tissue Medtronic 02/03/2020 [id number] / [id number] / Hardware E.G. Pins/Screws/ Rods Hardware e.g. pins/screws /rods Spine Lumbar Description:Lumbar fusion Spn Scrw Slr Sld 5.5 - [id number] Implanted:Qt y: 6 on 10/12/2018 by Homer Talamantes M.D. at [facility] Hardware e.g. pins/screws /rods Medtronic [id number] / / Ceramic Head Implanted:Qt y: 1 on 05/23/2018 by Anand Kirkland M.D. at [facility] Hip Implant Left: Femur BioMet [id number] 07/21/2027 [id number] / / [id number] Spn Cg Cpsc Lmbr P Tlif 14x32 - [id number] Implanted:Qt y: 1 on 10/12/2018 by Homer Talamantes M.D. at [facility] Spine Implant Medtronic 05/13/2026 [id number] / / FV Advance Directives For more information, please contact: [phone] Latest Code Status on File Code Status Date Activated Date Inactivated Comments Full Code 10/12/2018 3:28 PM 10/15/2018 2:40 PM Question Answer Comments Full Code: Discussed Code Status History Code Status Date Activated Date Inactivated Comments Full Code 10/12/2018 8:15 AM 10/12/2018 3:28 PM Question Answer Comments Full Code: Discussed Full Code 10/04/2018 9:41 PM 10/06/2018 1:58 PM Question Answer Comments Full Code: Not Discussed Due to: Patient not available Full Code 10/04/2018 7:10 PM 10/04/2018 9:41 PM Question Answer Comments Full Code: Not Discussed Due to: Patient not available Full Code 05/23/2018 5:51 AM 05/24/2018 5:34 PM Question Answer Comments Full Code: Discussed Care Teams Landcare Facilitator Relationship Specialty Start Date End Date Meg Beck M.D. [address] [place] [phone] PCP - General 05/06/17
--- OUTSIDE RECORDS SUMMARY | 2023-12-13 06:07 | XMS_ITS | Encounter Summary ---
Author Name Unknown Organization [facility] Address [address] [place] [address] Care Team Providers Care Skin Drier Name Role Phone Meg Beck M.D. Primary Care Provider [phone] Reason for Referral * Outpatient (Routine) - Authorized Specialty Diagnoses / Procedures Referred By Isaiah sue Referred To Contact Meg Orantes M.D. [address] [place] [phone] [facility] Referral ID Status Reason Start Date Expiration Date V isits Requested Visits Authorized [id number] Authorized 11/11/2023 11/10/2026 1 1 Scheduling Instructions Medicare annual provider visit/HCC gaps Do not schedule prior to due date to ensure insurance coverage Visit: Medicare Annual Wellness Never done. RIALS AND CORROSION ENGINEER * Outpatient (Routine) - Authorized Specialty Diagnoses / Procedures Referred By Isaiah sue Referred To Contact Meg Orantes M.D. [address] [place] [phone] [facility] Referral ID Status Reason Start Date Expiration Date V isits Requested Visits Authorized [id number] Authorized 11/11/2023 11/10/2026 1 1 Scheduling Instructions Nurse AWV Do not schedule prior to due date to ensure insurance coverage Visit: Medicare Annual Wellness Never done. RIALS AND CORROSION ENGINEER Encounter Details Date Type Department Care Team (Late st Contact Info) Description 11/11/2023 Orders Only [facility] PCP [facility] Meg Bell M.D. [address] [place] [phone] Social History Tobacco Use Types Packs/Day [...] week 03/01/2023 How often do you attend [facility] or nondenominational services? More than 4 times per year 03/01/2023 Do you belong to any clubs o r organizations such as rastafarian groups, unions, fraternal or athletic groups, or [...] Answer Date Recorded PHQ-2 Score 0 03/01/2023 [facility] - Occupational Stress Questionnaire Answer Date Recorded [...] place to sleep or slept in a assisted (including now)? No 03/01/2023 Depression Answer Date [...] Date Recorded Dental: Regular Dentist No 03/01/20 23 Employment Answer Date Recorded Employment status Retired [...] as of this encounter Plan of Treatment Scheduled Referrals Name Type Priority Associated Diagnoses Orde r Schedule Family Medicine nurse visit (clinic) Outpatient Referral Routine Expected: 12/09/2023, Expires: 05/09/2024 Family Medicine office visit (clinic) Outpatient Referral Routine Expected: 12/09/2023, Expires: 05/09/2024 documented as of this encounter Visit Diagnoses Not on filedocumented in this encounter Additional Health Concerns Assessment Noted Time PHQ-9 Depression Total Score: 0 03/01/20 23 12:50 PM CDT documented as of this encounter Care Teams Skin Drier Relationship Specialty Start Date End Date Meg Beck M.D. [address] [place] [phone] PCP - General 05/06/17 documented as of this encounter
--- OUTSIDE RECORDS SUMMARY | 2023-12-13 06:07 | XMS_ITS | Continuity of Care Document ---
Author Name Unknown Organization [facility] Address [address] [place] [phone] Phone Care Team Providers Care Warp Coiler Name Role Phone Will MD ARRIAZA, Ford [...] 5 mg tablet Take 5-10 mg by [facility] every 4 (four) hours as needed. - [...] Diagnoses Date Provider Providers Copied on Encounter [facility], [address] [facility] [place], [id number] , [place] tel: [phone] [facility] [place] No Information 2 Will Ford. [address] [facility] [place]io [place], [id number] , [place]. tel: [phone] OFFICE/OUTPA TIENT VISIT, EST [facility], [address] [facility] [address] [place], [id number] , [place] tel: [phone] [facility] Back Pain (chief complaint) Trochanteric bursitis, left hipLong term (current) use of opiate analgesicPostlamin ectomy syndrome, not elsewhere classifiedPain in right shoulderBilateral primary osteoarthritis of kneePain in left shoulder 1 Ingram Hugo. [place], [address], [place], [address], [place]. tel: [phone] Referring Provider: [facility] [address], [place], [address]. tel:[phone] [facility], [address] [place] [address] [place], [place], [id number] , [place] tel: [phone] [facility] Pain in left shoulder 0 Will Ford. [address] [facility] [place], [id number] , [place]. tel: [phone] OFFICE/OUTPA TIENT VISIT, EST [facility], [address] [facility] [place], [place], [id number] , [place] tel: [phone] [facility] Emily Back Pain (chief complaint) Trochanteric bursitis, left hipLong term (current) use of opiate analgesicPostlamin ectomy syndrome, not elsewhere classifiedPain in right shoulderBilateral primary osteoarthritis of kneePain in left shoulder 0 Ingram Hugo. [place], [address], [place], [address], [place]. tel: [phone] Referring Provider: Charbel Dominguez, [facility] [address], [place], [address]. tel:[phone] OFFICE/OUTPA TIENT VISIT, NEW [facility], [address] [place], [place], [id number] , [place] tel:[phone] [facility] [place] Back Pain (chief complaint) Postlaminectomy syndrome, not elsewhere classifiedPain in right shoulderBilateral primary osteoarthritis of kneeEncounter for screening for other disorderTrochanter ic bursitis, left hipLong term (current) use of opiate analgesic Sep-2 0 Juan Jose Arias. [place], [address] [facility] [address], [place], [address], [place]. tel:[phone] Referring Provider: Charbel Dominguez [facility] [address], [place], [address]. tel:[phone] Family History Family Member Type Diagnosis Age At Onset No Information Payers Payer name Insurance type Covered green party ID Authoriza tion(s) [employer] To 16 [id number] Social History Type Description Quantity Date Captured [...] most bothersome. He reports shoulder injections at [facility] (Dr. Anand Bahena) and JOE Chang around [...] shoulder, back, and knee pain. Referred to [facility] by Charbel Shepherd MD. Overall, his pains [...] being compliant with rehab initially. Referred to [facility] for reasons unbeknownst to him but is [...]
--- OUTSIDE RECORDS SUMMARY | 2023-12-13 06:07 | XMS_ITS | Clinical Summary ---
Author Name Unknown Organization [facility] Address [address] [place] [address] Care Team Providers Care Bandage Winding Machine Operator Name Role Phone Meg Beck M.D. Primary Care Provider [phone] Source Comments Patient records contain information from all sites at [facility]. For routine questions regarding patient records, call [phone] during business hours, M-F 8:00 AM - 5:00 PM Central Time. Record requests for emergency care only can be directed to [phone] at any time.[facility] Allergies Active Allergy Reactions Criticality Noted Date Comments Amiodarone Other (see comments) 10/17/2018 Terrible pain, can't speak, burning pain Amitriptyline Other (see comments) Medium 08/21/2015 syncope Gabapentin Other (see comments) 05/31/2023 Reports being on a high/trance out of body when taking medication. Hydrocodone Other (see comments) High 06/20/2019 [place] high Melatonin Other (see comments) Low 08/18/2019 [...] Overview: Added automatically from request for surgery [id number] Radiculopathy Lumbar 10/12/2018 Depression Major Recurrent 09/28/2018 Stenosis Spinal Lumbar With Neurogenic Claudicat ion 09/23/2018 Overview: Added automatically from request for surgery [id number] Spinal Stenosis Lumbar Regio n Without Neurogenic Claudication 09/23/2018 Overview: Added automatically from request for surgery [id number] History Of Falling 08/31/2018 Fissure Anal 07/13/2018 [...] Overview: Added automatically from request for surgery [id number] Arthritis Hip 03/14/2018 Overview: Added automatically from request for surgery [id number] [place] Use Of Opiate Analgesic 06/30/2017 Overview: Overview: [...] 06/16/2017 Overview: Overview: Has est care with [place] [facility] Injury Brain Traumatic Personal History 04/02/20 17 [...] 11/30/2022 Depression Major Recurrent Moderate 08/19/2019 11/30/2022 [place] Anticoagulant Treatment [Z79.01] 11/08/2018 04/10/2019 Monitoring For Therapeutic Drug Therapy 06/30/2017 04/10/2019 Insomnia Subjective Complaint 02/01/2015 12/28/2018 Encounters Date Type Department Care Team Description 11/11/2023 Orders Only [facility] MNT Brown, Meg M, M.D. from Last 3 Months Immunizations Name Administration Dates Next Due DTaP (Infanrix, Tripedia) 05/02/2010 Influenza high dose QV(65 ye ars or older) (PF) 01/11/2023,10/09/2021 PCV13 03/15/2020 PPSV23 04/14/2021 Tdap 11/26/2020,03/15/2020 influenza high dose (65 year s or older) (PF) 09/07/2018,09/21/2017,08/26/2016 influenza vaccine quad (FLUZONE/FLUARIX) (6 months and older)(PF) 08/21/2019,09/07/2018,09/21/2017, 016,11/01/2015 Family History Medical History Relation Name Comments Diabetes Father Cancer Mother Relation Name Status Comments Father Mother Social History Tobacco [...] week 03/01/2023 How often do you attend [facility] or church services? More than 4 times per year 03/01/2023 Do you belong to any clubs o r organizations such as christianity groups, unions, fraternal or athletic groups, or [...] Answer Date Recorded PHQ-2 Score 0 03/01/2023 [facility] - Occupational Stress Questionnaire Answer Date [...] place to sleep or slept in a longterm (including now)? 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 Oxygen Saturation 97% 04/26/2019 9:51 AM CDT Inhaled Oxygen Concentration - - Weight 102 kg (225 lb 1.4 oz) 09/17/2022 10:07 A M CDT Height 189.9 cm (6' 2.76) 09/17/2022 10:07 AM C DT Body Mass Index 28.31 09/17/2022 10:07 AM CDT Plan of Treatment Health Maintenance Due Date Last Done Comments CT Colonography 1950 Cologuard 1950 Hepatitis C Screening 1950 Visit: Annual, age 65+ (or Medicare and <65) 1950 Visit: Medicare Annual Wellness 1950 Zoster Vaccines (1 of 2) 2000 Lipid (Cholesterol) Screening 10/06/2019, 07/03/2016, 07/03/2016 (Performed elsewhere), Additional history exists Colonoscopy 03/26/2020 03/26/2015 Colorectal Cancer Surveillance 03/26/2020 Depression Monitoring (PHQ-9) 07/01/2023 03/01/2023 COVID-19 Vaccine (4 - 2022-2 4 season) 2023 10/23/2021, 02/14/2021, 01/24/2021 Fall Risk Screen (Annual) 11/22/2023 Office Visit for Blood Press ure Check / Re-check 05/31/2024 05/31/2023 Fasting Glucose for Diabetes Screening 08/18/2024 08/18/2021, 12/19/2019, 08/02/2019, Additional history exists DTaP,Tdap,and Td Vaccines (4 - Td or Tdap) 11/26/2030 11/26/2020, 03/15/2020, 05/02/2010 Pneumococcal vaccine (65+ years) Completed 04/14/20, 03/15/2020 Influenza Vaccine Completed 09/08/2023, , 10/09/2021, Additional history exists Medical Devices Implanted Type Area Card Lacer Jacquard Device Identifier Shelf Expiration Date Model / Serial / Lot Grft Grf Dbm Pst Pl 5 - [id number] - [id number] Implanted:Qt y: 1 on 10/12/2018 by Homer Talamantes M.D. at [facility] Bone or Tissue Medtronic 02/03/2020 [id number] / [id number] / Hardware E.G. Pins/Screws/ Rods Hardware e.g. pins/screws /rods Spine Lumbar Description:Lumbar fusion Spn Scrw Slr Sld 5.5 - [id number] Implanted:Qt y: 6 on 10/12/2018 by Homer Talamantes M.D. at [facility] Hardware e.g. pins/screws /rods Medtronic [id number] / / Ceramic Head Implanted:Qt y: 1 on 05/23/2018 by Anand Kirkland M.D. at [facility] Hip Implant Left: Femur BioMet [id number] 07/21/2027 [id number] / / [id number] [facility]n [facility] L[facility] P Tlif 14x32 - [id number] Implanted:Qt y: 1 on 10/12/2018 by Homer Talamantes M.D. at [facility] Spine Implant Medtronic 05/13/2026 [id number] FV Advance Directives For more information, please contact: [phone] Latest Code Status on File Code Status [...] Answer Comments Full Code: Discussed Care Teams Bandage Winding Machine Operator Relationship Specialty Start Date End Date Meg Beck M.D. [address] [place] [phone] PCP - General 05/06/17
[2023-12-13] MEDS: OXYCODONE (CR) 10 MG TAB.ER.12H PO (06:44)
[2023-12-13] MEDS: LACTATED RINGERS 1000 ML 1,000 ML 100 ML IV ×2 (06:57→08:37)
[2023-12-13] MEDS: ACETAMINOPHEN 500 MG TABLET 1000 MG PO ×3 (06:57→19:13)
[2023-12-13] MEDS: SODIUM CHLORIDE 0.9 % (FLUSH) 10 ML SYRINGE IVF (07:00)
--- NOTE | 2023-12-13 07:01 | SUR.PREOP ---
Dr. Courtney aware of acetaminophen allergy. He does want patient to take it given it was a mild reaction.
--- NOTE | 2023-12-13 07:13 | CRLHL7_ITS ---
For Patients: As a result of the Cures Act, medical imaging exams and procedure reports are released immediately into your electronic medical record. You may view this report before your referring provider. If you have questions, please contact your health care provider. Indication: POST OP TKA Technique: Two views left knee Findings/Impression: Hardware from a left total knee arthroplasty is in satisfactory position. Bone alignment is normal. No sign of acute fracture. Postop changes are within normal limits. Dictated by Yoshi Larios MD @ 12/13/2023 10:40:41 AM (Electronically Signed)
[2023-12-13] MEDS: MIDAZOLAM HCL 1 MG/ML inj IVP (07:28)
[2023-12-13] MEDS: fentaNYL 100 MCG/2 ML inj IVP (07:28)
--- NOTE | 2023-12-13 07:29 | SUR.PREOP ---
TIME?OUT:?0727 PT/Sapna Nath RN/Dr. Henry MDA?VERIFICATION?OF?SURGICAL?SITE left knee,?PROCEDURE,?AND?CONSENT OBTAINED?PRIOR?TO?INVASIVE?PROCEDURE.
--- NOTE | 2023-12-13 08:03 | W.PM.H&PU ---
History & Physical Update History & Physical Update H&P Reviewed and patient assessed: No changes noted
[2023-12-13] MEDS: TRANEXAMIC ACID 100 MG/ML INJ 1000 MG IV (08:13)
[2023-12-13] MEDS: CEFAZOLIN 2 GM in 0.9 % SODIUM CHLORIDE Mini-bag 100 ML IVPB ×3 (08:13→20:05)
--- NOTE | 2023-12-13 08:35 | CRLHL7_ITS ---
For Patients: As a result of the Century Cures Act, medical imaging exams and procedure reports are released immediately into your electronic medical record. You may view this report before your referring provider. If you have questions, please contact your health care provider. Indication: Intra op Technique: Two portable films of the left knee Comparison: 10/21/2023 IMPRESSION: Fixation screw in the proximal tibia. Postop changes to the distal femur above knee joint. Dictated by Yoshi Larios MD @ 12/13/2023 9:10:52 AM (Electronically Signed)
--- NOTE | 2023-12-13 09:26 | P.ORPRC_ITS ---
Procedure Note Date of procedure: 12/13/23 Procedure: PREOPERATIVE DIAGNOSIS: 1. Left knee osteoarthritis, primary, severe POSTOPERATIVE DIAGNOSIS: 1. Left knee osteoarthritis, primary, severe PROCEDURE: 1. Left total knee arthroplasty SURGEON: Tiago Courtney MD. PROJECTS MANAGER: LEONID Dick - Of note, a skilled medical office receptionist assistant was critical for this case to aid in patient positioning, tissue retraction, limb manipulation/positioning, and closure. ANESTHESIA: Spinal anesthetic EBL: 50ml IMPLANTS: DePuy J&J all cemented TKA - Attune PS femur size 8, size 7 tibia, 6 mm poly spacer, 41mm patella TOURNIQUET: 90 min at 300 torr COMPLICATIONS: None evident INDICATIONS: The patient is a pleasant 72-year-old male who has experienced severe left knee pain and difficulty bearing weight. Workup included x-rays which revealed severe osteoarthrosis in the knee. Given the deformity, the dysfunction, and the pain, as well as the failure of nonoperative management, recommendation was made for surgery. FINDINGS: Full-thickness chondral loss diffusely throughout the medial compartment and patellofemoral compartment to a lesser degree lateral compartment. Large effusion upon entering the joint. Degenerative meniscus pathology both compartments. DESCRIPTION OF PROCEDURE: Following a thorough discussion of risks, benefits, and alternatives consent was obtained and the left knee was marked. The patient was brought to the operating room and placed supine on the operating table. Induction of anesthesia was undertaken. 2 g IV Ancef and 1 g tranexamic acid was administered within 1 hr of incision preoperatively. Proper time-out was performed identifying proper patient, site, procedure. The operative extremity was prepped and draped in the appropriate sterile fashion using ChloraPrep after the patient was positioned supine with all bony prominences well padded. A longitudinal, anterior, midline skin incision was made starting approximately 3cm proximal to the superior pole of the patella and advanced distal to the tibial tubercle. A median parapatellar arthrotomy was created. A medial subperiosteal sleeve was created with knife, forde elevator and curved osteotome. The retropatellar fatpad was resected and the synovium in the suprapatellar pouch excised to visualize the anterior femoral cortex. Femoral preparation was performed via an intramedullary guide. Step drill allowed access into the femoral canal. The distal cutting guide was placed with 5? of valgus and 11 mm cut on the distal femur. Femur was sized using a posterior referencing guide in 3? of external rotation. This found have a best fit with the sizing noted above. The 4 in 1 cutting block was then placed, and the distal femur shaped accordingly. The box cut was then created and the trial implant inserted to confirm appropriate fit. We turned our attention to the proximal tibia. Extramedullary guide was utilized for cutting with the goal of being 90 degree cut from the mechanical axis of the tibia in the varus/valgus plane utilizing tibial crest as the primary alignment. Initially a 2 mm resection was performed from the medial tibial plateau. Ultimately, balancing was achieved in both flexion and exten ramirez in both varus and valgus. The knee was able to achieve full extension as well comfortably. The patella was initially measured and found have a thickness of 24 mm. It was resected back to approximately 14.5 mm. It was sized to be a best fit with as noted above. This was drilled, trial placed. All trials were placed and found to have an excellent stability and balance. At this stage, trial implants were removed, the knee was thoroughly irrigated with normal saline, and the cement was mixed. After irrigation, the knee was thoroughly dried, and cement placed, with the real tibial and femoral implants placed along with the patella. Trial poly spacer was placed and confirmed to have excellent range of motion and full extension, and the real poly spacer opened and inserted. All extra cement was removed, and a 3 min Betadine soak performed. Finally, a final irrigation round with normal saline was performed. Closure performed with 0 PDS and #0 Stratafix for the quad tendon/retinaculum. 2-0 Vicryl/Stratafix for the subcutaneous and 4-0 Monocryl for subcuticular closure. Dressings were applied and the patient was awoken from anesthesia after the tourniquet deflated and transferred the PACU in stable condition. A skilled medical office receptionist assistant was critical for this case to aid in patient positioning, tissue retraction, bone exposure, limb manipulation/positioning, patient safety, and closure. PLAN: 1. Weight bear as tolerated operative extremity. 2. 23 hr perioperative antibiotics. 3. Ice. 4. PT/OT consults for ambulation assistance/mobility education. 5. Social work consult for discharge planning. 6. DVT prophylaxis with at SCDs, Sal Hose, and aspirin twice daily.
--- NOTE | 2023-12-13 10:11 | W.ANESCHARGE ---
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
--- NOTE | 2023-12-13 11:03 | P.NB_ITS ---
Nerve Block Nerve Block Time Seen by Provider: 07:32 Date Seen: 12/13/23 Type of block requested by surgeon for post-operative analgesia: geniculars Side: left Time out performed: Yes Verification of patient name: Yes Verification of date of : Yes Site marking: site marked Name of person performing procedure: Henry Continuous monitoring Was continuous monitoring of O2 sat, B/P, equipment monitor phototypesetting, recorded every 15 minutes?: Yes Procedure Checklist: sterile prep, needles and gloves Medications given in 5ml increments after negative aspiration: Ropivicaine %: 0.5 mL: 9 Needle gauge: 25 Patient tolerated procedure well: Yes Block Charges Block Charge (with Pro Fee): Genicular Nerve Block Use of Ultrasound Machine for Block: No
--- NOTE | 2023-12-13 11:03 | W.PM.NB ---
Nerve Block Nerve Block Time Seen by Provider: 07:32 Date Seen: 12/13/23 Type of block requested by surgeon for post-operative analgesia: adductor canal Side: left Time out performed: Yes Verification of patient name: Yes Verification of date of : Yes Site marking: site marked Name of person performing procedure: Henry Continuous monitoring Was continuous monitoring of O2 sat, B/P, electronic device monitor, recorded every 15 minutes?: Yes Procedure Checklist: sterile prep, needles and gloves Ultrasound guided. Images saved: Yes Medications given in 5ml increments after negative aspiration: Ropivicaine %: 0.5 mL: 20 Needle gauge: 20 Decadron (mg): 10 Precedex (mcg): 25 Patient tolerated procedure well: Yes Additional comments: Needle noted adjacent to nerve Block Charges Block Charge (with Pro Fee): Femoral Nerve Use of Ultrasound Machine for Block: Yes- US Guidance/pain block
--- NOTE | 2023-12-13 11:04 | W.ANESCHARGE ---
Anesthesia Charges Start Date/Time Anesthesia Start Date: 12/13/23 Anesthesia Start Time: 07:52 Stop Date/Time Anesthesia Stop Date: 12/13/23 Anesthesia Stop Time: 10:10 Summary Extremes of Age - Over 70 or under 1: MDA
--- NOTE | 2023-12-13 11:22 | PM.IMCN1 ---
Date of Consult Patient: [facility] Patient Consult date: 12/13/23 Requesting Physician: Orthopedics Primary Care Provider: Charbel Dominguez MD Consult Narrative Reason for consult: Medical management Narrative: Yoshi Almaraz is a 72 year old male past medical history significant for cardiovascular disease, atrial fibrillation s/p ablation 2020, anxiety, chronic pain, insomnia, osteoarthritis is POD#0 s/p left total knee arthroplasty with Dr. Courtney. Postoperatively, patient reports 0 pain. No nausea or vomiting. Has no complaints currently. There have been no perioperative complications or nursing concerns reported. Mild hypotensive pressures as can occur postoperatively. Estimated total blood loss documented as 50 ml. Updated and reviewed the active medical problems, past medical history, past surgical history, social history, allergies and medications in our electronic EMR. Review of Systems Narrative: REVIEW OF SYSTEMS: Complete review of systems performed and negative unless otherwise stated in HPI or below. [facility] Medical History Medicare annual wellness visit, subsequent ?Z00.00 - Encounter for general adult medical examination without abnormal findings (ICD-10) Opioid dependence ?F11.20 - Opioid dependence, uncomplicated (ICD-10) History of inflammation of sacroiliac joint (10/28/18) ?Z87.39 - Personal history of other diseases of the musculoskeletal system and connective tissue (ICD-10) History of compression fracture of spine (11/25/18) ?Z87.81 - Personal history of (healed) traumatic fracture (ICD-10) History of colonic polyps (03/2015) ?Z86.010 - Personal history of colonic polyps (ICD-10) History of anal fissures (2014) ?Z87.19 - Personal history of other diseases of the digestive system (ICD-10) Disorder of middle ear ?H74.90 - Unspecified disorder of middle ear and mastoid, unspecified ear (ICD-10) Cardiovascular disease (2007) ?I25.10 - Atherosclerotic heart disease of [place] coronary artery without angina pectoris (ICD-10) Anticoagulation goal of INR 2 to 3 ?Z51.81 - Encounter for therapeutic drug level monitoring (ICD-10) ?Z79.01 - nursing home (current) use of anticoagulants (ICD-10) Adverse effect of non-steroidal anti-inflammatory drug (NSAID) ?T39.395A - Adverse effect of other nonsteroidal anti-inflammatory drugs [NSAID], initial encounter (ICD-10) Surgical History History of lumbar fusion (01/23/15) ?Z98.1 - Arthrodesis status (ICD-10) History of total left hip replacement (05/23/18) ?Z96.642 - Presence of left artificial hip joint (ICD-10) History of lumbar fusion (10/12/18) ?Z98.1 - Arthrodesis status (ICD-10) History of cholecystectomy (2014) ?Z90.49 - Acquired absence of other specified parts of digestive tract (ICD-10) Family History Father Diabetes Mother Diabetes Social History Smoking Status: Never smoker Do you use any of these nicotine containing products: None How often do you have a drink containing alcohol: never AUDIT-C Alcohol total score: 0 Non-prescribed substance use: denies use Caffeine: No Little interest or pleasure in doing things: not at all Feeling down, depressed, or hopeless: not at all service: No Meds Home Medications and Allergies Home Medications Medication Instructions Recorded Confirmed Type ascorbic acid (vitamin C) 250 mg 250 mg PO DAILY 06/02/22 12/13/23 History tablet glucosamine sulfate 500 mg capsule 500 mg PO DAILY 06/02/22 12/13/23 History lidocaine 5 % topical ointment 1 applic mucous membrane .Daily as 06/02/22 12/08/23 History needed PRN multivitamin (Multiple Vitamins 1 tab PO QAM 06/02/22 12/13/23 History tablet) clonazepam 0.5 mg tablet 0.5 mg PO PRN 12/18/22 12/03/23 History fluoxetine 10 mg capsule 10 mg PO 12/18/22 12/03/23 History quetiapine 50 mg tablet 50 mg PO 12/18/22 12/03/23 History Allergies Allergy/AdvReac Type Severity Reaction Status Date / Time acetaminophen Allergy Mild Malaise Verified 12/13/23 06:14 amitriptyline Allergy Unknown afib Verified 12/13/23 06:14 metoprolol Allergy Unknown Fainting Verified 12/13/23 06:14 Exam Narrative: Exam Narrative: PHYSICAL EXAM General: Pleasant, conversant, NAD HEENT: Normocephalic, atraumatic, sclera white, EOMI, oral mucosa moist Cardiovascular: RRR, S1S2. No pitting edema Pulmonary: CTA bilaterally without rhonchi, rales, expiratory wheezes. No dyspnea Abdominal: Soft, nondistended, NTTP Neurological: Alert, answering questions appropriately, cranial nerves intact, no focal findings Extremities: No gross joint deformity or swelling. Postoperative dressing in place, dry. Neurovascularly intact Skin: Warm, dry. Const: Vital Signs, click to edit/add: Vital Signs - 24 hr 12/13/23 06:52 12/13/23 07:28 12/13/23 07:35 Temperature 98.4 F Pulse Rate 69 65 63 Respiratory Rate 16 16 16 Blood Pressure 117/85 122/82 113/83 Pulse Oximetry 96 98 97 Oxygen Delivery Me thod Room Air Nasal Cannula Nasal Cannula Oxygen Flow Rate 2 2 12/13/23 10:06 12/13/23 10:10 12/13/23 10:15 Temperature 98.7 F Pulse Rate 61 61 61 Respiratory Rate 16 16 16 Blood Pressure 99/61 99/59 L 99/62 Pulse Oximetry 94 95 96 Oxygen Delivery Me thod Room Air Room Air Room Air Oxygen Flow Rate 12/13/23 10:20 12/13/23 10:25 12/13/23 10:30 Temperature 98.6 F Pulse Rate 61 62 61 Respiratory Rate 16 16 16 Blood Pressure 105/67 104/68 107/70 Pulse Oximetry 95 96 96 Oxygen Delivery Me thod Room Air Room Air Room Air Oxygen Flow Rate 12/13/23 10:35 Temperature 98.6 F Pulse Rate 63 Respiratory Rate 16 Blood Pressure 110/67 Pulse Oximetry 97 Oxygen Delivery Me thod Room Air Oxygen Flow Rate Assessment and Plan Assessment and plan (1) Osteoarthritis of left knee: Problem comment: -POD#0 s/p left TKA -perioperative management including pain management and anticoagulation per Orthopedic surgery -encourage postoperative pulmonary hygiene -PT OT consults -plan to discharge home with daughter tomorrow Status: Chronic (2) Atrial fibrillation: Problem comment: - s/p ablation, NSR since 2019, not on anticoagulation Status: Resolved (3) Anxiety: Problem comment: - continue home medications Status: Chronic Plan Hospital medicine team will sign off. Please contact our service with any questions or concerns
[2023-12-13] MEDS: LACTATED RINGERS 1000 ML 1,000 ML 75 ML IV (13:26)
[2023-12-13] MEDS: OXYCODONE 5 MG TABLET PO ×2 (15:55→20:04)
--- NOTE | 2023-12-13 16:19 | CRLHL7_ITS ---
For Patients: As a result of the Century Cures Act, medical imaging exams and procedure reports are released immediately into your electronic medical record. You may view this report before your referring provider. If you have questions, please contact your health care provider. Indication: Testicular pain. Technique: Ultrasound of the scrotum and contents. Sonographic watt-scale images were obtained with spectral and color Doppler waveform and spectral waveform analysis of the testicles. Comparison: None. Findings: Bother testicles are normal in size and echotexture. No masses. No suspicious calcifications. Arterial and venous color Doppler blood flow and spectral waveforms are present in both testicles. Tiny 5 millimeter intratesticular cyst. Epididymis: Unremarkable bilaterally. Normal blood flow. Other: Small right hydrocele. No sign of varicocele. Scrotal wall is normal. Impression: Small right hydrocele, possibly reactive. Otherwise, no sign of torsion or inflammation. Dictated by Jeremi Hwang MD @ 12/13/2023 6:15:22 PM (Electronically Signed)
[2023-12-13] MEDS: HYDROmorphone 0.5 mg/0.5 ml inj IVP (16:24)
--- NOTE | 2023-12-13 16:30 | CRLHL7_ITS ---
For Patients: As a result of the Century Cures Act, medical imaging exams and procedure reports are released immediately into your electronic medical record. You may view this report before your referring provider. If you have questions, please contact your health care provider. INDICATION: Acute left lower quadrant bowel pain. Testicular pain. TECHNIQUE: Multiple axial images were obtained from the diaphragm to the symphysis pubis after administration of 99 mL of Isovue-370 intravenously. Sagittal and coronal re-formatted images were obtained. COMPARISON: 07/28/2019. FINDINGS: There is scarring and atelectasis in both lung bases. There is no focal liver lesion. The spleen, pancreas and adrenal glands are unremarkable. The gallbladder is surgically absent. There is a 2.2 cm cyst in the left kidney posteriorly. There is no hydronephrosis seen in the kidneys. Again noted is the diverticulum off the left posterior aspect urinary bladder unchanged from the previous study. There is no evidence of a bowel obstruction. The appendix is unremarkable. The abdominal aorta is normal in caliber. There is no adenopathy. There is no free fluid in the abdomen or pelvis. There is a left total arthroplasty. There are degenerative changes in the spine. There is fusion from L2-L4. There is a stable old compression fracture superior endplate of L1. IMPRESSION: No acute abnormality. Status post cholecystectomy. Please note that all CT scans at this facility use dose modulation, iterative reconstruction, and/or weight-based dosing when appropriate to reduce radiation dose to as low as reasonably achievable. Dictated by Scooter Morales MD @ 12/13/2023 6:37:02 PM (Electronically Signed)
[2023-12-13] MEDS: SENNOSIDES 1 TAB TABLET 2 TAB PO (20:04)
[2023-12-13] MEDS: ASPIRIN 81 MG TABLET EC PO (20:05)
--- NOTE | 2023-12-13 20:33 | PM.IMPN1 ---
Progress Note: A&P Assessment and plan (1) Left lower quadrant pain: Problem details: For concern of testicular torsion, I obtained a an ultrasound of the testes. I also obtained CT abdomen and pelvis. Results are above. These appear fairly unremarkable with the exception of a diverticulum off to the left of the bladder. There is no mention of diverticulitis or perforation. Patient was able to void 750 mL over the next two hours. His pain has now resolved. I suspect pain was likely secondary to a distended bladder. Status: Acute Subjective Date Seen: 12/13/23 Interval history: I was called to see Param this afternoon for acute left groin and scrotal pain. He was very uncomfortable. He tells me it feels like what he had when he had a slipped disc in his back, but he had left posterior buttock pain with that and the pain this time is all anterior. He denies nausea. He has a h/o anxiety. Exam Narrative: Exam Narrative: Nurse Mckayla was in the room with me during the examination. General: Anxious, irritable, in pain. Awake, alert, oriented. Abdomen: Bowel sounds present. Guarding, nondistended, point tender in left lower quadrant. No rebound tenderness. No masses. I felt for a bladder, but did not note an enlarged bladder. Genitourinary: His underwear were wet with urine. Circumcised male with normal external male genitalia. Left groin and testicle or tender to palpation. No abnormalities noted. No masses or hernias noted. Cremasteric response on the left is present. Right was not tested. Extremities: Left knee bandages are clean, dry, and intact. Const: Vital Signs, click to edit/add: Vital Signs - 24 hr 12/13/23 06:52 12/13/23 07:28 12/13/23 07:35 Temperature 98.4 F Pulse Rate 69 65 63 Pulse Rate [Pulse Oximeter] Respiratory Rate 16 16 16 Blood Pressure 117/85 122/82 113/83 Blood Pressure [Le ft Arm] Pulse Oximetry 96 98 97 Oxygen Delivery Me thod Room Air Nasal Cannula Nasal Cannula Oxygen Flow Rate 2 2 12/13/23 10:06 12/13/23 10:10 12/13/23 10:15 Temperature 98.7 F Pulse Rate 61 61 61 Pulse Rate [Pulse Oximeter] Respiratory Rate 16 16 16 Blood Pressure 99/61 99/59 L 99/62 Blood Pressure [Le ft Arm] Pulse Oximetry 94 95 96 Oxygen Delivery Me thod Room Air Room Air Room Air Oxygen Flow Rate 12/13/23 10:20 12/13/23 10:25 12/13/23 10:30 Temperature 98.6 F Pulse Rate 61 62 61 Pulse Rate [Pulse Oximeter] Respiratory Rate 16 16 16 Blood Pressure 105/67 104/68 107/70 Blood Pressure [Le ft Arm] Pulse Oximetry 95 96 96 Oxygen Delivery Me thod Room Air Room Air Room Air Oxygen Flow Rate 12/13/23 10:35 12/13/23 10:42 12/13/23 10:42 Temperature 98.6 F 96.2 F L Pulse Rate 63 63 Pulse Rate [Pulse Oximeter] Respiratory Rate 16 16 Blood Pressure 110/67 Blood Pressure [Le ft Arm] 115/75 Pulse Oximetry 97 96 Oxygen Delivery Me thod Room Air Oxygen Flow Rate 12/13/23 10:45 12/13/23 11:00 12/13/23 11:15 Temperature 96.8 F L Pulse Rate Pulse Rate [Pulse Oximeter] 62 62 63 Respiratory Rate 16 16 16 Blood Pressure Blood Pressure [Le ft Arm] 104/75 110/73 113/78 Pulse Oximetry 97 96 96 Oxygen Delivery Me thod Room Air Room Air Room Air Oxygen Flow Rate 12/13/23 11:30 12/13/23 12:00 12/13/23 12:30 Temperature 97.1 F L Pulse Rate Pulse Rate [Pulse Oximeter] 64 63 62 Respiratory Rate 16 16 18 Blood Pressure Blood Pressure [Le ft Arm] 112/78 128/80 131/87 Pulse Oximetry 95 98 98 Oxygen Delivery Me thod Room Air Room Air Room Air Oxygen Flow Rate 12/13/23 13:00 12/13/23 14:00 12/13/23 15:00 Temperature 97.3 F L Pulse Rate Pulse Rate [Pulse Oximeter] 67 65 Respiratory Rate 16 16 Blood Pressure Blood Pressure [Le ft Arm] 121/77 133/83 Pulse Oximetry 99 98 97 Oxygen Delivery Me thod Room Air Room Air Oxygen Flow Rate 12/13/23 15:00 12/13/23 15:00 12/13/23 16:00 Temperature 98.1 F 98 F Pulse Rate Pulse Rate [Pulse Oximeter] 71 71 76 Respiratory Rate 16 16 16 Blood Pressure Blood Pressure [Le ft Arm] 133/88 123/77 Pulse Oximetry 97 95 Oxygen Delivery Me thod Room Air Room Air Oxygen Flow Rate 12/13/23 19:13 12/13/23 19:16 12/13/23 20:23 Temperature 98 F 97 F L 97 F L Pulse Rate Pulse Rate [Pulse Oximeter] 80 Respiratory Rate 16 Blood Pressure Blood Pressure [Le ft Arm] 133/84 Pulse Oximetry 97 Oxygen Delivery Me thod Room Air Oxygen Flow Rate
[2023-12-14] MEDS: ACETAMINOPHEN 500 MG TABLET 1000 MG PO (00:49)
[2023-12-14] MEDS: CEFAZOLIN 2 GM in 0.9 % SODIUM CHLORIDE Mini-bag 100 ML IVPB (04:49)
[2023-12-14] MEDS: OXYCODONE 5 MG TABLET PO (06:24)
[2023-12-14 06:46] LABS: Basophils Percent Auto 0.1 % (0.0-3.0); Hematocrit 39.3 % (37.0-53.0); Hemoglobin* 12.9 gm/dL (13.5-17.5); Immature Granulocytes Pct Auto 0.2 %; Lymphocytes Percent Auto 8.3 % (20-44); Mean Corpuscular HGB Conc 33 gm/dL (32-36); Mean Corpuscular Hemoglobin 30 pg (26-34); Mean Corpuscular Volume 90 fL (80-100); Monocytes Percent Auto 8.4 % (0.0-11.0); Platelet Count* 245 K/uL (140-440); RDW Coefficient of Variation % 12.6 % (11.5-15.5); Red Blood Count 4.35 m/uL (4.30-5.90); White Blood Count* 11.53 K/uL (4.50-11.00)
[2023-12-14 07:09] LABS: Slide Review Reflex No
[2023-12-14 07:28] LABS: Sodium* 137 mmol/L (135-149)
[2023-12-14 07:31] LABS: Creatinine* 0.7 mg/dL (0.5-1.5); Est. Creatinine Clearance* 75.46; Estimated Glomerular Filt Rate 98 ml/min
[2023-12-14 07:32] LABS: Blood Urea Nitrogen* 18 mg/dL (7-30)
[2023-12-14 08:02] VITALS: BP 122/83; PULSE 71; RESP 16; TEMP 36.6; O2SAT 98
--- NOTE | 2023-12-14 08:18 | PC.NURSE ---
Pt alert and oriented x3. Afebrile. Pt reports 3/10 pain in left knee, managed with scheduled medications. Pt's left knee dressing is CDI. Pt is up SBA with walker and gait belt to chair and bathroom. Pt is tolerating a regular diet and voiding, had small BM overnight. Pt slept intermittently throughout night.
[2023-12-14] MEDS: ASPIRIN 81 MG TABLET EC PO (09:12)
[2023-12-14] MEDS: FLUOXETINE HCL 10 MG CAPSULE PO (09:12)
[2023-12-14] MEDS: SENNOSIDES 1 TAB TABLET 2 TAB PO (09:13)
--- NOTE | 2023-12-14 10:28 | PM.ORPN ---
Subjective Subjective Date Seen: 12/14/23 Interval history: Patient reports doing well. Yesterday afternoon, experienced acute LLQ pain including testicular pain (see hospitalist note). This was thought to be due to a distended bladder, as patient urinated approximately 750cc urine over the next 2 hours. He received ultrasound to rule out testicular torsion, and abdominal CT which were all negative. Currently has good urine output, and reports no further pain over his bladder, and no painful urination. Pain managed with scheduled and PRN medications, ice. DVT prophylaxis: ASA 81mg BID, bilateral knee high Sal stockings, SCDs, walking. Denies fevers, chills, aches, N/V, CP, SOB/MUNROE, or lightheadedness. Reports mild abdominal discomfort, but reports having 2 omelets over the last 24 hours. He reports 3 bowel movements this morning. These are not loose. Also reports history of ear infections. Sees ENT for this. He believes another ear infection is started. Has oral abx at home for this. He would like to have ear drops again, and will contact ENT for this. Ortho Exam Narrative Exam Narrative: -Patient appears comfortable walking in room on his own with walker; no apparent acute distress -Alert and oriented times 3 -Operative knee moderately swollen; soft tissues supple; no ecchymosis; no erythematous streaking Warmth appropriate -Surgical dressing clean, dry, intact; no drainage -Bilateral calfs soft; no significant swelling, edema, tenderness, erythema, discoloration, warmth, or palpable cords -2+ DP/PT pulses, intact dermatomes and myotomes distally (5/5 strength) -Abdomen soft and non-tender to palpation all 4 quadrants. No bladder distension or pain with palpation. Const Vital Signs, click to edit/add: Vital Signs - 24 hr 12/13/23 10:30 12/13/23 10:35 12/13/23 10:42 Temperature 98.6 F Pulse Rate 61 63 Pulse Rate [Pulse Oximeter] Respiratory Rate 16 16 Blood Pressure 107/70 110/67 Blood Pressure [Left Arm] Pulse Oximetry 96 97 96 Oxygen Delivery Method Room Air Room Air 12/13/23 10:42 12/13/23 10:45 12/13/23 11:00 Temperature 96.2 F L Pulse Rate 63 Pulse Rate [Pulse Oximeter] 62 62 Respiratory Rate 16 16 16 Blood Pressure Blood Pressure [Left Arm] 115/75 104/75 110/73 Pulse Oximetry 97 96 Oxygen Delivery Method Room Air Room Air 12/13/23 11:15 12/13/23 11:30 12/13/23 12:00 Temperature 96.8 F L Pulse Rate Pulse Rate [Pulse Oximeter] 63 64 63 Respiratory Rate 16 16 16 Blood Pressure Blood Pressure [Left Arm] 113/78 112/78 128/80 Pulse Oximetry 96 95 98 Oxygen Delivery Method Room Air Room Air Room Air 12/13/23 12:30 12/13/23 13:00 12/13/23 14:00 Temperature 97.1 F L 97.3 F L Pulse Rate Pulse Rate [Pulse Oximeter] 62 67 65 Respiratory Rate 18 16 16 Blood Pressure Blood Pressure [Left Arm] 131/87 121/77 133/83 Pulse Oximetry 98 99 98 Oxygen Delivery Method Room Air Room Air Room Air 12/13/23 15:00 12/13/23 15:00 12/13/23 15:00 Temperature 98.1 F Pulse Rate Pulse Rate [Pulse Oximeter] 71 71 Respiratory Rate 16 16 Blood Pressure Blood Pressure [Left Arm] 133/88 Pulse Oximetry 97 97 Oxygen Delivery Method Room Air 12/13/23 16:00 12/13/23 19:13 12/13/23 19:16 Temperature 98 F 98 F 97 F L Pulse Rate Pulse Rate [Pulse Oximeter] 76 80 Respiratory Rate 16 16 Blood Pressure Blood Pressure [Left Arm] 123/77 133/84 Pulse Oximetry 95 97 Oxygen Delivery Method Room Air Room Air 12/13/23 20:23 12/14/23 08:02 12/14/23 08:02 Temperature 97 F L 97.8 F Pulse Rate Pulse Rate [Pulse Oximeter] 71 Respiratory Rate 16 Blood Pressure Blood Pressure [Left Arm] 122/83 Pulse Oximetry 98 98 Oxygen Delivery Method Room Air Assessment and Plan Assessment and plan (1) Osteoarthritis of left knee: Problem details: -POD#1 left TKA -perioperative management including pain management and anticoagulation per Orthopedic surgery -encourage postoperative pulmonary hygiene -PT OT consults -plan to discharge home with daughter tomorrow Status: Chronic (2) Left lower quadrant pain: Problem details: For concern of testicular torsion, I obtained a an ultrasound of the testes. I also obtained CT abdomen and pelvis. Results are above. These appear fairly unremarkable with the exception of a diverticulum off to the left of the bladder. There is no mention of diverticulitis or perforation. Patient was able to void 750 mL over the next two hours. His pain has now resolved. I suspect pain was likely secondary to a distended bladder. Status: Acute Plan - Complete 23 hour perioperative antibiotics. - PT/OT consult for education and assistance. - Social work consult for discharge planning - Prescribed analgesics as needed - DVT prophylaxis: 81 mg aspirin by mouth twice daily, bilateral knee high Sal Hose stockings and SCDs - Advised to advance diet slowly, and continue stool softeners; he has had 3 bowel movements today thus far, which have not been loose. He knows to hold stool softener if experiencing loose stools. - Urine output is adequate, no further pain. - Anticipation is for discharge to home with family 12/14/2023 if the patient remains medically stable, pain is controlled, and they are safe with mobilization.
== END 2023-12-14 11:26 | disposition home or self-care (01) ==
LOC: OR 06:04 → MEDSURG 06:07
PROVIDERS: PCP Family Medicine; Visit Provider Orthopaedic Surgery Sports Medicine
PROC: (CPT 27447; principal; 2023-12-13 08:00)
DX: M17.12 Unilateral primary osteoarthritis, left knee (principal); G89.18 Other acute postprocedural pain; F41.9 Anxiety disorder, unspecified; R10.32 Left lower quadrant pain; N50.812 Left testicular pain
CPT/HCPCS: 27447; 01402; 36415; 64447; 64454; 73560; 74177; 76870; 76942; 82565; 84132; 84295; 84520; 85025; 93976; 97110; 97116; 97161; 97165; 97530; 97535; 99100; A9270; C1776; J0690; J1100; J1170; J2250; J2704; J2795; J3010; J7120; Q9967

== ENCOUNTER 2024-01-27 13:37 | Emergency (ER) | payer OTHER, SELFPAY ==
[2024-01-27] VITALS (18 sets, daily range): BP systolic 109–146; BP diastolic 66–82; PULSE 68–77; RESP 18; TEMP 36.8; O2SAT 97–100; BMI 26.3
--- NOTE | 2024-01-27 13:53 | XR_ITS ---
Patient: YUMIKO ARMENDARIZ Facility:?[facility] Patient ID:?[id number] Site Patient ID:?[id number]. Site :?[id number] Study:?XRay-Chest PORTABLE-01/27/2024 2:09:36 PM Ordering Physician:GA Final Report: Indication: Chest pain Technique: Frontal view of the chest Comparison: Chest radiograph on October 31, 2019 Findings: The cardiomediastinal silhouette and pulmonary vasculature are within normal limits. No focal airspace consolidation, pleural effusion, or pneumothorax. Trace left basilar atelectasis/scarring. No displaced fractures. Severe osteoarthritic degenerative changes of the right glenohumeral joint. Impression: No acute cardiopulmonary process. Dictated by Anand Beltran MD @ 01/27/2024 2:57:10 PM Signed by:?Anand Beltran MD @01/27/2024 2:57:10 PM (Electronic Signature)
[2024-01-27 14:06] LABS: Basophils Percent Auto 0.3 % (0.0-3.0); Eosinophils Percent Auto 1.4 % (0.0-7.0); Hematocrit 41.9 % (37.0-53.0); Hemoglobin* 13.8 gm/dL (13.5-17.5); Immature Granulocytes Pct Auto 0.3 %; Lymphocytes Percent Auto 16.3 % (20-44); Mean Corpuscular HGB Conc 33 gm/dL (32-36); Mean Corpuscular Hemoglobin 30 pg (26-34); Mean Corpuscular Volume 90 fL (80-100); Monocytes Percent Auto 7.1 % (0.0-11.0); Neutrophils Percent Auto 74.6 % (42.0-72.0); Platelet Count* 280 K/uL (140-440); RDW Coefficient of Variation % 12.5 % (11.5-15.5); Red Blood Count 4.66 m/uL (4.30-5.90)
[2024-01-27 14:07] LABS: Slide Review Reflex No
[2024-01-27 14:26] LABS: Albumin* 4.4 g/dL (3.3-5.0); Chloride* 104 mmol/L (96-114); Sodium* 139 mmol/L (135-149)
[2024-01-27 14:28] LABS: Potassium* 3.9 mmol/L (3.6-5.1)
[2024-01-27 14:29] LABS: Creatinine* 0.7 mg/dL (0.5-1.5); Est. Creatinine Clearance* 76.49; Estimated Glomerular Filt Rate 97 ml/min
[2024-01-27 14:30] LABS: Alanine Aminotransferase* 14 U/L (4-50); Alkaline Phosphatase* 86 U/L (40-150); Anion Gap 5 mEq/L (7-15); Aspartate Amino Transferase* 20 U/L (12-35); Bilirubin Direct* 0.3 mg/dL (0.0-0.5); Bilirubin Total* 0.6 mg/dL (0.1-1.5); Blood Urea Nitrogen* 17 mg/dL (7-30); Carbon Dioxide* 30 mmol/L (20-32); Glucose* 128 mg/dL (60-115); Lipase* 65 U/L (23-300); Total Protein* 7.4 g/dL (6.0-8.3)
[2024-01-27 14:31] LABS: Calcium* 9.5 mg/dL (8.4-10.6)
[2024-01-27 14:33] LABS: D Dimer Quantitative* 2.77 ug/ml (0.00-0.50)
[2024-01-27 14:34] LABS: C Reactive Protein* < 0.5 mg/dL (0.5-1.0)
[2024-01-27 14:48] LABS: PCR FLU A Negative PCR FLU A (Negative); PCR FLU B Negative PCR FLU B (Negative); PCR RSV Negative PCR RSV (Negative); SARS PCR* Negative SARS-CoV-2 (Negative)
--- NOTE | 2024-01-27 15:08 | CT_ITS ---
Patient: YUMIKO ARMENDARIZ Facility:?[facility] Patient ID:?[id number] Site Patient ID:?[id number]. Site :?[id number] Study:?CT-Chest PE STUDY-01/27/2024 3:54:14 PM Ordering Physician:GA Final Report: Indication: CHEST PAIN 3 WEEKS POST KNEE PAIN Technique: CTA chest, pulmonary embolism protocol, 95 mL Isovue 370 Comparison: None Findings: No thyroid nodules. No thoracic lymphadenopathy. The heart is normal in size. No pericardial effusion. The thoracic aorta and pulmonary artery are within normal limits in caliber. No pulmonary embolism. No focal airspace consolidation, pleural effusion, or pneumothorax. Likely minimal atelectatic changes/scarring seen in the bilateral, right greater than left lung bases. Small subpleural nodular opacity measuring approximately 5 millimeters in the right lung base, favored to represent component of atelectasis/scarring. Faint mosaic attenuation of the lung parenchyma which can be seen with air trapping. The visualized upper abdomen is without acute process. Status post cholecystectomy. Exophytic cystic like lesion seen at the interpolar region of the left kidney, incompletely characterized on this exam. No acute fracture or malalignment. There is some minimal degenerative changes throughout the spine with severe degenerative changes of the right shoulder. Likely sebaceous cyst seen in the subcutaneous fat of the right posterior inferior back. Partially visualized spinal hardware. Impression: 1. No pulmonary embolism. 2. No CT evidence of an acute process involving the chest. 3. Small subpleural nodular opacity measuring approximately 5 millimeters in the right lung base, favored to represent component of atelectasis versus less likely discrete nodule; however, if patient is at high risk for developing lung malignancy recommend repeat CT chest in 12 months to reassess. Please note that all CT scans at this facility use dose modulation, iterative reconstruction, and/or weight-based dosing when appropriate to reduce radiation dose to as low as reasonably achievable. Dictated by Anand Beltran MD @ 01/27/2024 4:23:48 PM Signed by:?Anand Beltran MD @01/27/2024 4:23:48 PM (Electronic Signature)
--- NOTE | 2024-01-27 15:10 | ED.GENADULT ---
HPI - General Adult General Date Seen: 01/27/24 <Karoline Markham MD - Last Filed: 01/28/24 16:12> Chief complaint: Chest Pain <Karoline Markham MD - Last Filed: 01/28/24 16:12> Stated complaint: L chest/stomach pain-legs and feet cold and blue <Karoline Markham MD - Last Filed: 01/28/24 16:12> Time Seen by Provider: 01/27/24 13:46 <Karoline Markham MD - Last Filed: 01/28/24 16:12> Source: patient, RN notes reviewed and old records reviewed <Karoline Markham MD - Last Filed: 01/28/24 16:12> Mode of arrival: ambulatory <Karoline Markham MD - Last Filed: 01/28/24 16:12> Limitations: no limitations <Karoline Markham MD - Last Filed: 01/28/24 16:12> History of Present Illness HPI narrative: Patient is a 73-year-old male who tells me he is 5 weeks post knee replacement. He says his knees doing great, but he says since the surgery he has been having a lot of difficulty sleeping. For the past few days he says he has gotten very little sleep at all. He has also noted for the past few days on and off he has had pressure in his chest lasting a few minutes at a time and cramping abdominal pain which is diffuse and does not seem associated with the chest pain. He has continued to take oxycodone although he says he has not had any for the past couple of days. He has not had any fevers or chills. He says he is eating okay, bowel movements have been normal. He has not felt short of breath, denies cough. He says this morning when he looked at his feet and ankles they looked blue and they feel cold. He has not had any calf pain or leg swelling otherwise. Atrial fibrillation is listed as the past medical history but he is not on any anticoagulation. He had a CT scan of the abdomen back in November of this year without significant findings, normal aorta. He does not smoke or drink. He is status post cholecystectomy. <Karoline Markham MD - Last Filed: 01/28/24 16:12> Related Data Home medications: Home Medications Medication Instructions Recorded Confirmed ascorbic acid (vitamin C) 250 mg 250 mg PO DAILY 06/02/22 01/25/24 tablet glucosamine sulfate 500 mg capsule 500 mg PO DAILY 06/02/22 01/25/24 lidocaine 5 % topical ointment 1 applic mucous membrane DAILY PRN 06/02/22 01/25/24 multivitamin (Multiple Vitamins 1 tab PO QAM 06/02/22 01/25/24 tablet) clonazepam 0.5 mg tablet 0.5 mg PO TID PRN 12/18/22 01/25/24 fluoxetine 10 mg capsule 10 mg PO DAILY 12/18/22 01/25/24 quetiapine 50 mg tablet 50 mg PO HS PRN 12/18/22 01/25/24 Previous Rx's Medication Instructions Recorded amoxicillin 875 mg tablet 875 mg PO BID #20 tabs 09/17/23 aspirin 81 mg tablet,delayed 81 mg PO BID #60 tabs 12/14/23 release celecoxib 100 mg capsule 100 mg PO BID #60 caps 12/14/23 oxycodone 5 mg tablet 2.5 - 5 mg (0.5 - 1 x 5 mg) PO 12/28/23 Q6-8H PRN pain #20 tabs sennosides 8.6 mg-docusate sodium 1 - 4 tab-cap (1 - 4 x 8.6-50 mg) 12/28/23 50 mg tablet (Senna-S) PO BID PRN constipation #30 tabs <Karoline Markham MD - Last Filed: 01/28/24 16:12> Allergies/adverse reactions: Allergies Allergy/AdvReac Type Severity Reaction Status Date / Time acetaminophen Allergy Mild Malaise Verified 01/25/24 08:38 amiodarone Allergy Unknown Verified 01/25/24 08:38 amitriptyline Allergy Unknown afib Verified 01/25/24 08:38 gabapentin Allergy Unknown Verified 01/25/24 08:38 hydrocodone Allergy Unknown Verified 01/25/24 08:38 melatonin Allergy Unknown Verified 01/25/24 08:38 metoprolol Allergy Unknown Fainting Verified 01/25/24 08:38 mirtazapine Allergy Unknown Verified 01/25/24 08:38 olanzapine Allergy Unknown Verified 01/25/24 08:38 <Karoline Markham MD - Last Filed: 01/28/24 16:12> Review of Systems Status of ROS: Reports: 10 or more systems reviewed and unremarkable except as noted in History and below <Karoline Markham MD - Last Filed: 01/28/24 16:12> [facility] Medical History: Medical History (Updated 01/27/24 @ 16:07 by Karoline Markham MD) Spinal stenosis of lumbar region (09/23/18) ?M48.061 - Spinal stenosis, lumbar region without neurogenic claudication (ICD-10) Radiculopathy, lumbar region (10/12/18) ?M54.16 - Radiculopathy, lumbar region (ICD-10) Neuropathy (03/16/17) ?G62.9 - Polyneuropathy, unspecified (ICD-10) 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) ?G43.409 - Hemiplegic migraine, not intractable, without status migrainosus (ICD-10) Degeneration, intervertebral disc, 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) ?M51.34 - Other intervertebral disc degeneration, thoracic region (ICD-10) Degeneration, intervertebral disc, 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/15) ?M50.30 - Other cervical disc degeneration, unspecified cervical region (ICD-10) Arthritis, hip (03/14/18) ?M16.10 - Unilateral primary osteoarthritis, unspecified hip (ICD-10) Arthralgia of hip (02/08/15) ?M25.559 - Pain in unspecified hip (ICD-10) Medicare annual wellness visit, subsequent ?Z00.00 - Encounter for general adult medical examination without abnormal findings (ICD-10) Opioid dependence ?F11.20 - Opioid dependence, uncomplicated (ICD-10) History of inflammation of sacroiliac joint (10/28/18) ?Z87.39 - Personal history of other diseases of the musculoskeletal system and connective tissue (ICD-10) History of compression fracture of spine (11/25/18) ?Z87.81 - Personal history of (healed) traumatic fracture (ICD-10) History of colonic polyps (03/2015) ?Z86.010 - Personal history of colonic polyps (ICD-10) History of anal fissures (2014) ?Z87.19 - Personal history of other diseases of the digestive system (ICD-10) Disorder of middle ear ?H74.90 - Unspecified disorder of middle ear and mastoid, unspecified ear (ICD-10) Cardiovascular disease (2008) ?I25.10 - Atherosclerotic heart disease of [place] coronary artery without angina pectoris (ICD-10) Anticoagulation goal of INR 2 to 3 ?Z51.81 - Encounter for therapeutic drug level monitoring (ICD-10) ?Z79.01 - care home (current) use of anticoagulants (ICD-10) Adverse effect of non-steroidal anti-inflammatory drug (NSAID) ?T39.395A - Adverse effect of other nonsteroidal anti-inflammatory drugs [NSAID], initial encounter (ICD-10) <Karoline Markham MD - Last Filed: 01/28/24 16:12> Surgical History: Surgical History (Updated 12/15/23 @ 15:21 by Kathy Suggs ~ [facility], [facility]) Status post lumbar laminectomy (12/04/14) ?Z98.890 - Other specified postprocedural states (ICD-10) Status post total left knee replacement (12/13/23) ?Z96.652 - Presence of left artificial knee joint (ICD-10) History of lumbar fusion (01/23/15) ?Z98.1 - Arthrodesis status (ICD-10) History of total left hip replacement (05/23/18) ?Z96.642 - Presence of left artificial hip joint (ICD-10) History of lumbar fusion (10/12/18) ?Z98.1 - Arthrodesis status (ICD-10) History of cholecystectomy (2014) ?Z90.49 - Acquired absence of other specified parts of digestive tract (ICD-10) <Karoline Markham MD - Last Filed: 01/28/24 16:12> Family History: Family History Father Diabetes Mother Diabetes <Karoline Markham MD - Last Filed: 01/28/24 16:12> Social History: Social History Smoking Status: Never smoker Do you use any of these nicotine containing products: None How often do you have a drink containing alcohol: never AUDIT-C Alcohol total score: 0 Non-prescribed substance use: denies use Caffeine: No Little interest or pleasure in doing things: not at all Feeling down, depressed, or hopeless: not at all service: No <Karoline Markham MD - Last Filed: 01/28/24 16:12> Exam Narrative: Exam Narrative: Vital signs as noted above. In general, an alert, nontoxic male. Breathing easily, looks comfortable. Head: Normocephalic, atraumatic. Eyes: Pupils are equal reactive. Extraocular movements are full. Conjunctivae are normal. ENT: Mucous membranes are moist. Delete Neck: Supple without lymphadenopathy. Heart: Regular rate and rhythm. No murmur or rub. Lungs: Clear bilaterally. No increased work of breathing, crackles or wheezes. Abdomen: Soft and nondistended. Bowel sounds present. Diffuse mild tenderness without rebound guarding or rigidity. Extremities: Both lower extremities look well perfused, no pallor or cyanosis. Dorsalis pedis pulses are intact in bilateral feet, CMS is normal. No calf pain or tenderness, no edema. Neurologic: Patient is alert and oriented to person and place. Speech is fluent. Face is symmetric. Moves all extremities equally. Affect: Normal. Skin: Warm and dry. Well perfused. <Karoline Markham MD - Last Filed: 01/28/24 16:12> Const: Vital Signs, click to edit/add: Vital Signs - 24 hr 01/27/24 16:15 Pulse Rate 68 Pulse Oximetry 98 <Karoline Markham MD - Last Filed: 01/28/24 16:12> Vital Signs, click to edit/add: Vital Signs - 24 hr 01/27/24 16:15 Pulse Rate 68 Pulse Oximetry 98 <Ismael Jacobson DO - Last Filed: 01/27/24 16:34> Documenting provider has reviewed patient's vital signs: yes <Karoline Markham MD - Last Filed: 01/28/24 16:12> Course Course ED Course: Patient had an EKG on arrival, this shows a sinus rhythm with a ventricular rate of 77, no ST segment changes, T-waves are unremarkable by my review. Differential for his chest discomfort is broad and includes coronary ischemia, acute coronary syndrome or angina given his history of coronary artery disease, pneumonia, pulmonary embolism, pleural effusion or pneumothorax, gastritis or esophagitis, abdominal symptoms may be related or unrelated, again due to gastritis or gastroesophageal reflux, constipation or intestinal colic, diverticulitis, appendicitis, pancreatitis, obstruction among others. Labs are notable for normal white blood cell count of 7, hemoglobin of 13.8. Metabolic panel and LFTs are entirely within normal limits and CRP is less than 0.5. Lipase is 65. I think overall given several days of GI symptoms my suspicion for an acute surgical process is quite low in the presence of normal labs and benign abdominal exam. COVID flu and RSV are negative. Point of care troponin is 0. With a normal EKG multiple episodes of brief chest symptoms since yesterday I think a single troponin is adequate for evaluation in terms of acute coronary syndrome. The question of whether not this could be related to angina is separate, and it may be that he would benefit from a stress test as an outpatient. His D-dimer did return elevated at 2.77 and particularly given his recent surgery I think CT scan is warranted to rule out pulmonary embolism. I did do a portable chest x-ray which by my review is negative, negative per radiology read. CT scan is pending, signed out to Dr. Jacobson to follow-up on results. Assuming this is negative, patient can go home with close primary care follow-up, consider stress testing. For worsening pain, new symptoms such as vomiting, fevers, shortness of breath etcetera, return any time to the emergency department. <Karoline Markham MD - Last Filed: 01/28/24 16:12> Vital Signs Vital signs: Initial Vital Signs Temperature 98.3 F 01/27/24 13:43 Temperature Source Temporal Artery Scan 01/27/24 13:43 Pulse Rate 76 01/27/24 13:43 Respiratory Rate 18 01/27/24 13:43 Blood Pressure 146/82 H 01/27/24 13:43 Blood Pressure Mean 103 01/27/24 13:43 Blood Pressure Position Sitting 01/27/24 13:43 Pulse Oximetry 98 01/27/24 13:43 Oxygen Delivery Method Room Air 01/27/24 13:43 Vital Signs Temperature 98.3 F 01/27/24 13:43 Pulse Rate 76 01/27/24 13:43 Respiratory Rate 18 01/27/24 13:43 Blood Pressure 146/82 H 01/27/24 13:43 Pulse Oximetry 98 01/27/24 13:43 Oxygen Delivery Method Room Air 01/27/24 13:43 Temperature 98.3 F 01/27/24 13:43 Pulse Rate 68 01/27/24 16:15 Respiratory Rate 18 01/27/24 13:43 Blood Pressure 133/77 01/27/24 16:02 Pulse Oximetry 98 01/27/24 16:15 Oxygen Delivery Method Room Air 01/27/24 13:43 <Karoline Markham MD - Last Filed: 01/28/24 16:12> Initial Vital Signs Temperature 98.3 F 01/27/24 13:43 Temperature Source Temporal Artery Scan 01/27/24 13:43 Pulse Rate 76 01/27/24 13:43 Respiratory Rate 18 01/27/24 13:43 Blood Pressure 146/82 H 01/27/24 13:43 Blood Pressure Mean 103 01/27/24 13:43 Blood Pressure Position Sitting 01/27/24 13:43 Pulse Oximetry 98 01/27/24 13:43 Oxygen Delivery Method Room Air 01/27/24 13:43 Vital Signs Temperature 98.3 F 01/27/24 13:43 Pulse Rate 76 01/27/24 13:43 Respiratory Rate 18 01/27/24 13:43 Blood Pressure 146/82 H 01/27/24 13:43 Pulse Oximetry 98 01/27/24 13:43 Oxygen Delivery Method Room Air 01/27/24 13:43 Temperature 98.3 F 01/27/24 13:43 Pulse Rate 68 01/27/24 16:15 Respiratory Rate 18 01/27/24 13:43 Blood Pressure 133/77 01/27/24 16:02 Pulse Oximetry 98 01/27/24 16:15 Oxygen Delivery Method Room Air 01/27/24 13:43 <Ismael Jacobson DO - Last Filed: 01/27/24 16:34> Medications Administered Medications: Discontinued Medications Generic Name Dose Route Start Last Admin Trade Name Freq PRN Reason Stop Dose Admin Bismuth Subsalicylate 30 ml 01/27/24 15:44 01/27/24 16:03 Bismuth Subsalicylate 525 Mg/30 Ml Susp PO 01/27/24 15:45 30 ml ONCE ONE Administration <Karoline Markham MD - Last Filed: 01/28/24 16:12> Discontinued Medications Generic Name Dose Route Start Last Admin Trade Name Micahq PRN Reason Stop Dose Admin Bismuth Subsalicylate 30 ml 01/27/24 15:44 01/27/24 16:03 Bismuth Subsalicylate 525 Mg/30 Ml Susp PO 01/27/24 15:45 30 ml ONCE ONE Administration <Ismael Jacobson DO - Last Filed: 01/27/24 16:34> Medical Decision Making [facility] Narrative Medical decision making narrative: Was signed out to me pending CTA radiologist read. CTA returned showing no signs of pulmonary embolism, no signs of acute processes within the chest. There is a small subpleural nodular opacity that is most likely get like this is unless likely be a nodule appear to recommend follow-up in 12 months is the patient is a high risk for lung malignancy. Patient was informed of this. He will be discharged home. He is agreeable this plan. <Ismael Jacobson, DO - Last Filed: 01/27/24 16:34> Lab Data Labs: Lab Results 01/27/24 01/27/24 01/27/24 Range/Units 13:48 13:54 13:57 WBC 7.00 (4.50-11.00) K/uL RBC 4.66 (4.30-5.90) m/uL Hgb 13.8 (13.5-17.5) gm/dL Hct 41.9 (37.0-53.0) % MCV 90 (80-100) fL MCH 30 (26-34) pg MCHC 33 (32-36) gm/dL RDW Coeff of Brii 12.5 (11.5-15.5) % Plt Count 280 (140-440) K/uL Neut % (Auto) 74.6 H (42.0-72.0) % Lymph % (Auto) 16.3 L (20-44) % Izard % (Auto) 7.1 (0.0-11.0) % Eos % (Auto) 1.4 (0.0-7.0) % Baso % (Auto) 0.3 (0.0-3.0) % Neut # (Auto) 5.20 (1.7-7.0) K/uL Lymph # (Auto) 1.10 (0.90-2.90) K/uL [place] # (Auto) 0.50 (0.00-0.90) K/UL Eos # (Auto) 0.10 (0.00-0.50) K/uL Baso # (Auto) 0.00 (0.00-0.30) K/uL Abs Immat Gran (auto) 0.00 (0.00-0.30) K/uL Imm/Tot Granulo (auto) 0.3 % D-Dimer Quant (PE/DVT) 2.77 H (0.00-0.50) ug/ml Sodium 139 (135-149) mmol/L Potassium 3.9 (3.6-5.1) mmol/L Chloride 104 (96-114) mmol/L Carbon Dioxide 30 (20-32) mmol/L Anion Gap 5 L (7-15) mEq/L BUN 17 (7-30) mg/dL Creatinine 0.7 (0.5-1.5) mg/dL Estimated Creat Clear 76.49 Estimated GFR 97 ml/min Glucose 128 H (60-115) mg/dL Calcium 9.5 (8.4-10.6) mg/dL Total Bilirubin 0.6 (0.1-1.5) mg/dL Direct Bilirubin 0.3 (0.0-0.5) mg/dL AST 20 (12-35) U/L ALT 14 (4-50) U/L Alkaline Phosphatase 86 (40-150) U/L C-Reactive Protein < 0.5 L (0.5-1.0) mg/dL Total Protein 7.4 (6.0-8.3) g/dL Albumin 4.4 (3.3-5.0) g/dL Lipase 65 (23-300) U/L SARS-CoV-2 (PCR) Negative SARS-CoV-2 (Negative) Influenza Type A (PCR) Negative PCR FLU A (Negative) Influenza Type B (PCR) Negative PCR FLU B (Negative) RSV (PCR) Negative PCR RSV (Negative) POC Troponin I 0.00 L (0.01-0.04) ng/ml <Karoline Markham MD - Last Filed: 01/28/24 16:12> Lab Results 01/27/24 01/27/24 01/27/24 Range/Units 13:48 13:54 13:57 WBC 7.00 (4.50-11.00) K/uL RBC 4.66 (4.30-5.90) m/uL Hgb 13.8 (13.5-17.5) gm/dL Hct 41.9 (37.0-53.0) % MCV 90 (80-100) fL MCH 30 (26-34) pg MCHC 33 (32-36) gm/dL RDW Coeff of Brii 12.5 (11.5-15.5) % Plt Count 280 (140-440) K/uL Neut % (Auto) 74.6 H (42.0-72.0) % Lymph % (Auto) 16.3 L (20-44) % [place] % (Auto) 7.1 (0.0-11.0) % Eos % (Auto) 1.4 (0.0-7.0) % Baso % (Auto) 0.3 (0.0-3.0) % Neut # (Auto) 5.20 (1.7-7.0) K/uL Lymph # (Auto) 1.10 (0.90-2.90) K/uL [place] # (Auto) 0.50 (0.00-0.90) K/UL Eos # (Auto) 0.10 (0.00-0.50) K/uL Baso # (Auto) 0.00 (0.00-0.30) K/uL Abs Immat Gran (auto) 0.00 (0.00-0.30) K/uL Imm/Tot Granulo (auto) 0.3 % D-Dimer Quant (PE/DVT) 2.77 H (0.00-0.50) ug/ml Sodium 139 (135-149) mmol/L Potassium 3.9 (3.6-5.1) mmol/L Chloride 104 (96-114) mmol/L Carbon Dioxide 30 (20-32) mmol/L Anion Gap 5 L (7-15) mEq/L BUN 17 (7-30) mg/dL Creatinine 0.7 (0.5-1.5) mg/dL Estimated Creat Clear 76.49 Estimated GFR 97 ml/min Glucose 128 H (60-115) mg/dL Calcium 9.5 (8.4-10.6) mg/dL Total Bilirubin 0.6 (0.1-1.5) mg/dL Direct Bilirubin 0.3 (0.0-0.5) mg/dL AST 20 (12-35) U/L ALT 14 (4-50) U/L Alkaline Phosphatase 86 (40-150) U/L C-Reactive Protein < 0.5 L (0.5-1.0) mg/dL Total Protein 7.4 (6.0-8.3) g/dL Albumin 4.4 (3.3-5.0) g/dL Lipase 65 (23-300) U/L SARS-CoV-2 (PCR) Negative SARS-CoV-2 (Negative) Influenza Type A (PCR) Negative PCR FLU A (Negative) Influenza Type B (PCR) Negative PCR FLU B (Negative) RSV (PCR) Negative PCR RSV (Negative) POC Troponin I 0.00 L (0.01-0.04) ng/ml <Ismael Jacobson DO - Last Filed: 01/27/24 16:34> Imaging Data CTA chest: Radiologist's impression: 1. No pulmonary embolism. 2. No CT evidence of an acute process involving the chest. 3. Small subpleural nodular opacity measuring approximately 5 millimeters in the right lung base, favored to represent component of atelectasis versus less likely discrete nodule; however, if patient is at high risk for developing lung malignancy recommend repeat CT chest in 12 months to reassess. Please note that all CT scans at this facility use dose modulation, iterative reconstruction, and/or weight-based dosing when appropriate to reduce radiation dose to as low as reasonably achievable. <Ismael Jacobson DO - Last Filed: 01/27/24 16:34> Discharge Plan Discharge Clinical Impression: Chest pain <Karoline Markham MD - Last Filed: 01/28/24 16:12> Patient Disposition: Home, Self-Care <Karoline Markham MD - Last Filed: 01/28/24 16:12> Condition: Stable <Karoline Markham MD - Last Filed: 01/28/24 16:12> Instructions: Chest Pain (DC) <Karoline Markham MD - Last Filed: 01/28/24 16:12> Additional Instructions: There is no sign of a serious cause for your symptoms today, no evidence of blood clot, pneumonia, heart attack or other infection. I would recommend you see your primary doctor for recheck in the coming week, a stress test may be reasonable to evaluate further for your chest pain. There was a small area on a CT scan that is most likely benign issue called atelectasis but there is a small chance it could be malignancy related. You are at low risk at this time and this seems very unlikely but you can follow-up with the primary care provider for follow-up CT in 12 months. <Karoline Markham MD - Last Filed: 01/28/24 16:12> Prescriptions: No Action glucosamine sulfate 500 mg capsule 500 mg PO DAILY ascorbic acid (vitamin C) 250 mg tablet 250 mg PO DAILY multivitamin [Multiple Vitamins] Tablet 1 tab PO QAM lidocaine 5 % ointment 1 applic mucous membrane DAILY PRN quetiapine 50 mg tablet 50 mg PO HS PRN fluoxetine 10 mg capsule 10 mg PO DAILY clonazepam 0.5 mg tablet 0.5 mg PO TID PRN amoxicillin 875 mg tablet 875 mg PO BID Qty: 20 1RF aspirin 81 mg tablet,delayed release (DR/EC) 81 mg PO BID Qty: 60 0RF Rx Instructions: Medication to help prevent blood clots postoperatively; take TWICE daily. celecoxib 100 mg capsule 100 mg PO BID Qty: 60 0RF sennosides-docusate sodium [Senna-S] 8.6-50 mg tablet 1 - 4 tab-cap PO BID PRN (Reason: constipation) Qty: 30 0RF Rx Instructions: Hold medication if experiencing loose stools. oxycodone 5 mg tablet 2.5 - 5 mg PO Q6-8H MDD 6 PRN (Reason: pain) Qty: 20 0RF <Karoline Markham MD - Last Filed: 01/28/24 16:12> Follow Up/Referrals: Charbel Dominguez MD [Primary Care Provider] - <Karoline Markham MD - Last Filed: 01/28/24 16:12> Stand Alone Forms: [employer] Info Instructions <Karoline Markham MD - Last Filed: 01/28/24 16:12>
[2024-01-27] MEDS: BISMUTH SUBSALICYLATE 525 MG/30 ML SUSP PO (16:03)
== END 2024-01-27 16:40 | disposition home or self-care (01) ==
PROVIDERS: Emergency Provider Emergency Medicine; PCP Family Medicine
DX: R07.9 Chest pain, unspecified (principal)
CPT/HCPCS: 36415; 71045; 71275; 80048; 80076; 83690; 84484; 85025; 85379; 86140; 87631; 93005; 94761; 99283; 99284; 99285; Q9967

== ENCOUNTER 2024-03-09 07:12 | Outpatient (CLI) | payer OTHER, SELFPAY ==
--- OUTSIDE RECORDS SUMMARY | 2024-03-09 07:14 | XMS_ITS ---
Author Name Unknown Organization [facility] Address [address] [place] [address] Care Team Providers Care Financial Analysis Manager Name Role Phone Unavailable Unavailable Unavailable Surgery Details Not on file Complications Check Surgery Details section. Procedure Estimated Blood Loss Check Surgery Details section. Procedure Findings Check Surgery Details section. Procedure Specimens Taken Check Surgery Details section.
--- OUTSIDE RECORDS SUMMARY | 2024-03-09 07:14 | XMS_ITS | Clinical Summary ---
Author Name Unknown Organization [facility] Address [address] [place] [id number] Care Team Providers Care Photostat Operator Name Role Phone Meg Beck M.D. Primary Care Provider [phone] Source Comments Patient records contain information from all sites at [facility]. For routine questions regarding patient records, call [phone] during business hours, M-F 8:00 AM - 5:00 PM Central Time. Record requests for emergency care only can be directed to [phone] at any time.[facility] Allergies Active Allergy Reactions Criticality Noted Date Comments Amiodarone Other (see comments) 10/17/2018 Terrible pain, can't speak, burning pain Amitriptyline Other (see comments) Medium 08/21/2015 syncope Gabapentin Other (see comments) 05/31/2023 Reports being on a high/trance out of body when taking medication. Hydrocodone Other (see comments) High 06/20/2019 [place] high Melatonin Other (see comments) Low 08/18/2019 Nightmares Nightmares Metoprolol Other (see comments) Medium 08/21/2015 syncope Mirtazapine Hallucinations High 08/21/2015 Olanzapine Other (see comments) 06/13/2019 Trouble with eyes and body pain Medications Medication Sig Dispensed Refills Start Date End Date Status dilTIAZem (CARDIZEM) 60 mg tablet Take 60 mg by mouth every 6 (six) hours. As needed, per patient Active oxyCODONE (ROXICODONE) 5 mg immediate release tablet Take 5-10 mg by mouth every 4 (four) hours as needed. 03/15/2020 Active multivitamin tablet Take 1 tablet by mouth. Active dilTIAZem 2%-hydrocortison e 1%-lidocaine 1% in petrolatumIndica tions:Fissure Anal Apply rectally at least 2 times daily. May use up to 4 times daily 60 g 3 10/11/2020 Active glucosamine sulfate (GLUCOSAMINE) 500 mg capsule Active lidocaine (XYLOCAINE) 5 % ointment Daily as needed 06/23/2019 Active oxyCODONE-acetam inophen (PERCOCET) 5-325 mg per tablet Every 4 Hours as needed 06/23/2019 Active celecoxib (CeleBREX) 200 mg capsule Take 200 mg by mouth daily. 06/02/2022 Active Ciprodex 0.3-0.1 % otic suspension INSTILL 4 TO 6 DROPS INTO THE EAR(S) 4 TIMES DAILY FOR 4 DAYS 10/02/2022 Active ascorbic acid, vitamin C, (VITAMIN C) 500 mg tablet Take by mouth daily. Two tablets daily, unsure of exact dose Active clonazePAM (KlonoPIN) 0.5 mg tabletIndication s:Anxiety Generalized Disorder TAKE 1 TABLET BY MOUTH THREE TIMES DAILY NEEDED FOR ANXIETY 90 tablet 5 09/06/2023 Active Additional Information Patient taking differently: TAKE 1 TABLET BY MOUTH THREE TIMES DAILY NEEDED FOR ANXIETYTapering by 0.25 mg per week per Tina Yen's recommendations on 02/28/24., Reported on 02/28/2024 QUEtiapine (SEROquel) 50 mg tabletIndication s:Depression Major Recurrent (HCC),Anxiety Generalized Disorder Take 1.5 tablets (75 mg total) by mouth at bedtime. 45 tablet 3 02/01/2024 Active mirtazapine (REMERON) 7.5 mg tablet Take 7.5-15 mg by mouth. 02/17/2024 Active FLUoxetine (PROzac) 20 mg capsuleIndicatio ns:Anxiety Generalized Disorder,Depress ion Major Recurrent (HCC) Take 1 capsule (20 mg total) by mouth daily. 30 capsule 02/23/2024 Active FLUoxetine (PROzac) 10 mg capsuleIndicatio ns:Anxiety Generalized Disorder,Depress ion Major Recurrent (HCC) Take 1 capsule (10 mg total) by mouth daily. 30 capsule 8 09/06/2023 02/23/20 24 Discontinu ed(Reorder ) Active Problems Problem Noted Date Diagnosed Date Preoperative Exam 10/17/2022 Overview: Added automatically from request for surgery [id number] Radiculopathy Lumbar 10/12/2018 Depression Major Recurrent 09/28/2018 Stenosis Spinal Lumbar With Neurogenic Claudicat ion 09/23/2018 Overview: Added automatically from request for surgery [id number] Spinal Stenosis Lumbar Regio n Without Neurogenic Claudication 09/23/2018 Overview: Added automatically from request for surgery [id number] History Of Falling 08/31/2018 Fissure Anal 07/13/2018 [...] Overview: Added automatically from request for surgery [id number] Arthritis Hip 03/14/2018 Overview: Added automatically from request for surgery [id number] [facility] Use Of Opiate Analgesic 06/30/2017 Overview: Overview: [...] 06/16/2017 Overview: Overview: Has est care with [place] system Injury Brain Traumatic Personal History 04/02/20 [...] 11/30/2022 Depression Major Recurrent Moderate 08/19/2019 11/30/2022 Dust Collector Treater Anticoagulant Treatment [Z79.01] 11/08/2018 04/10/2019 Monitoring For Therapeutic Drug Therapy 06/30/2017 04/10/2019 Insomnia Subjective Complaint 02/01/2015 12/28/2018 Immunizations Name Administration Dates Next Due DTaP (Infanrix, Tripedia) 05/02/2010 Influenza high dose QV(65 ye ars or older) (PF) 01/11/2023,10/09/2021 PCV13 03/15/2020 PPSV23(Discontinued) 04/14/2021 Tdap 11/26/2020,03/15/2020 influenza high dose (65 [...] often do you attend chur ch or rastafari services? More than 4 times per year 03/01/2023 Do you belong to any clubs o r organizations such as sikhism groups, unions, fraternal or athletic groups, or [...] Answer Date Recorded PHQ-2 Score 0 03/01/2023 [facility] of Occupat ional Health - Occupational Stress [...] place to sleep or slept in a long-term (including now)? No 03/01/2023 Depression Answer Date [...] CDT Respiratory Rate 18 11/10/2021 10:13 AM RETAIL BUSINESS DEVELOPMENT MANAGER Oxygen Saturation 97% 04/26/2019 9:51 AM CDT [...] 05/31/2024 05/31/2023 Fasting Glucose for Diabetes Screening 02/13/2027 02/14/2024, 08/18/2021, 12/19/2019, Additional history exists DTaP,Tdap,and Td Vaccines (4 - Td or Tdap) 11/26/2030 11/26/2020, 03/15/2020, 05/02/2010 Pneumococcal vaccine (65+ years) Completed 04/14/20, 03/15/2020 Influenza Vaccine Completed 09/08/2023, , 10/09/2021, Additional history exists Medical Devices Implanted Type Area Master Fire Control Technician Device Identifier Shelf Expiration Date Model / Serial / Lot Mariusz Gr Dbm Pty 6 - [id number] - [id number] Implanted:Qt y: 1 on 10/12/2018 by Homer Talamantes M.D. at [facility] Bone or Tissue Medtronic 04/03/2020 [id number] / [id number] / Adam Salomon Dbm Pst 5 - [id number] - [id number] Implanted:Qt y: 1 on 10/12/2018 by Homer Talamantes M.D. at [facility] Bone or Tissue [employer]tronic 02/03/2020 [id number] / [id number] / Hardware E.G. Pins/Screws/ Rods Hardware e.g. pins/screw s/rods Spine Lumbar Description:Lumbar fusion Spn Scrw Slr Jaun Mas 6.5x50 - [id number] 0 Implanted:Qt y: 2 on 10/12/2018 by Homer Talamantes M.D. at [facility] Hardware e.g. pins/screw s/rods Medtronic [id number] / / Spn Jose Francisco Slr 5.5x70 - [id number] 0 Implanted:Qt y: 2 on 10/12/2018 by Homer Talamantes M.D. at [facility] Hardware e.g. pins/screw s/rods Medtronic [id number] / / Spn Scrw Slr Sld 5.5 - [id number] 0 Implanted:Qt y: 6 on 10/12/2018 by Homer Talamantes M.D. at [facility] Hardware e.g. pins/screw s/rods Medtronic [id number] / / Ceramic Head Implanted:Qt y: 1 on 05/23/2018 by Anand Kirkland M.D. at [facility] Hip Implant Left: Femur BioMet [id number] 07/21/2027 [id number] / / [id number] G7 Acetabular Shell Implanted:Qt y: 1 on 05/23/2018 by Anand Kirkland M.D. at [facility] Hip Implant Left: Acetabulum BioMet [id number] 01/25/2028 [id number] / / [id number] Bone Screw Implanted:Qt y: 1 on 05/23/2018 by Anand Kirkland M.D. at [facility] Hip Implant Left: Acetabulum Polly Biomet [id number] 06/21/2027 [id number] / / [id number] G7 Acetabular Linert Implanted:Qt y: 1 on 05/23/2018 by Anand Kirkland M.D. at [facility] Hip Implant Left: Acetabulum BioMet [id number] 11/21/2022 [id number] / / [id number] Femoral Stem Implanted:Qt y: 1 on 05/23/2018 by Anand Kirkland M.D. at [facility] Hip Implant Left: Femur BioMet 03/11/2028 [id number] / / [id number] Standard Neck Implanted:Qt y: 1 on 05/23/2018 by Anand Kirkland M.D. at [facility] Hip Implant Left: Femur BioMet [id number] 12/08/2027 650-1066 / / [id number] Spn [facility] Lmbr P Tlif 14x32 - [id number] Implanted:Qt y: 1 on 10/12/2018 by Homer Talamantes M.D. at [facility] Spine Implant Medtronic 05/13/2026 [id number] / FV Procedures Procedure Name Priority Date/Time Associated Diagnosis Comments EXTI COMPREHENSIVE METABOLIC PANEL, S/P Routine 02/14/2024 10:43 AM CDT LIPID PANEL, S Routine 10/06/2018 6:31 AM RETAIL BUSINESS DEVELOPMENT MANAGER COLONOSCOPY Routine 03/26/2015 from Last 3 Months or Most Recently Relevant to Health Maintenance Results * (ABNORMAL) Lipid Panel (10/06/2018 6:31 AM RETAIL BUSINESS DEVELOPMENT MANAGER) Cholesterol, Total 211(H) mg/dL 2017 7:29 AM RETAIL BUSINESS DEVELOPMENT MANAGER [facility] Comment: ----REFERENCE VALUE---- Desirable: < 200 Borderline high: 200 - 239 High: > or = 240 Triglycerides 107 mg/dL 10/06/2018 7:29 AM RETAIL BUSINESS DEVELOPMENT MANAGER [facility] Comment: ----REFERENCE VALUE---- Normal: <150 Borderline high: 150-199 High: 200-499 Very high: > or =500 Cholesterol, HDL, S 72 >=40 mg/dL 10/06/2018 7:29 AM RETAIL BUSINESS DEVELOPMENT MANAGER [facility] Calculated LDL 118 mg/dL 10/06/2018 7:29 AM RETAIL BUSINESS DEVELOPMENT MANAGER [facility] Comment: ----REFERENCE VALUE---- Desirable: <100 Above Desirable: 100-129 Borderline high: 130-159 High: 160-189 Very high: > or =190 Cholesterol, Non-HDL, Calculated 139 mg/dL 10/06/2018 7:29 AM [facility] Comment: ----REFERENCE VALUE---- Desirable: <130 Above Desirable: 130-159 Borderline high: 160-189 High: 190-219 Very high: > or =220 Blood (Blood, Venous) 10/06/2018 6:31 AM RETAIL BUSINESS DEVELOPMENT MANAGER 10/06/2018 6:36 AM RETAIL BUSINESS DEVELOPMENT MANAGER Fiona Carter P.A.-C., P.A. LAB BL OOD ADD-ON [facility] [address] [place] [address] * Colonoscopy (03/26/2015) EXT Colonoscopy HIMS - Report Received and Scanned Normal - See Scanned Report for Details, HIMS - Report Received and Scanned Comment:Colonoscopy complete d in-house. Recommended 5yr recall. Historical Provider GI PROCEDURE ORDERAB LES from Last 3 Months or Most Recently Relevant to Health Maintenance Advance Directives For more information, please contact: [phone] * Full Code (Latest Code Status on File) Date Activated Date Inactivated Comments 10/12/2018 3:28 PM 10/15/2018 2:40 PM Question Answer Comments Full Code: Discussed * Full Code Date Activated Date Inactivated Comments 10/12/2018 8:15 AM 10/12/2018 3:28 PM Question Answer Comments Full Code: Discussed * Full Code Date Activated Date Inactivated Comments 10/04/2018 9:41 PM 10/06/2018 1:58 PM Question Answer Comments Full Code: Not Discussed Due to: Patient not available * Full Code Date Activated Date Inactivated Comments 10/04/2018 7:10 PM 10/04/2018 9:41 PM Question Answer Comments Full Code: Not Discussed Due to: Patient not available * Full Code Date Activated Date Inactivated Comments 05/23/2018 5:51 AM 05/24/2018 5:34 PM Question Answer Comments Full Code: Discussed Care Teams Photostat Operator Relationship Specialty Start Date End Date Meg Beck M.D. [address] [place] [phone] PCP - General 05/06/17
--- OUTSIDE RECORDS SUMMARY | 2024-03-09 07:14 | XMS_ITS | Referral Summary ---
Author Name Unknown Organization [facility] Address [address] [place] [address] Care Team Providers Care Engine Builder Name Role Phone Meg Beck M.D. Primary Care Provider [phone] Source Comments Patient records contain information from all sites at [facility]. For routine questions regarding patient records, call [phone] during business hours, M-F 8:00 AM - 5:00 PM Central Time. Record requests for emergency care only can be directed to [phone] at any time.[facility] Allergies Active Allergy Reactions Criticality Noted Date Comments Amiodarone Other (see comments) 10/17/2018 Terrible pain, can't speak, burning pain Amitriptyline Other (see comments) Medium 08/21/2015 syncope Gabapentin Other (see comments) 05/31/2023 Reports being on a high/trance out of body when taking medication. Hydrocodone Other (see comments) High 06/20/2019 [place] high Melatonin Other (see comments) Low 08/18/2019 [...] Overview: Added automatically from request for surgery [id number] Radiculopathy Lumbar 10/12/2018 Depression Major Recurrent 09/28/2018 Stenosis Spinal Lumbar With Neurogenic Claudicat ion 09/23/2018 Overview: Added automatically from request for surgery [id number] Spinal Stenosis Lumbar Regio n Without Neurogenic Claudication 09/23/2018 Overview: Added automatically from request for surgery [id number] History Of Falling 08/31/2018 Fissure Anal 07/13/2018 [...] Overview: Added automatically from request for surgery [id number] Arthritis Hip 03/14/2018 Overview: Added automatically from request for surgery [id number] [facility] Use Of Opiate Analgesic 06/30/2017 Overview: Overview: [...] 06/16/2017 Overview: Overview: Has est care with [place] system Injury Brain Traumatic Personal History 04/02/20 [...] 11/30/2022 Depression Major Recurrent Moderate 08/19/2019 11/30/2022 Lcsw Anticoagulant Treatment [Z79.01] 11/08/2018 04/10/2019 Monitoring For [...] often do you attend chur ch or caodaism services? More than 4 times per year 03/01/2023 Do you belong to any clubs o r organizations such as restorationism groups, unions, fraternal or athletic groups, or [...] Answer Date Recorded PHQ-2 Score 0 03/01/2023 [facility] of Occupat ional Health - Occupational Stress [...] place to sleep or slept in a care home (including now)? No 03/01/2023 Depression Answer Date [...] CDT Respiratory Rate 18 11/10/2021 10:13 AM STAVE SAW OPERATOR Oxygen Saturation 97% 04/26/2019 9:51 AM CDT Inhaled Oxygen Concentration - - Weight 102 kg (225 lb 1.4 oz) 09/17/2022 10:07 A M CDT Height 189.9 cm (6' 2.76) 09/17/2022 10:07 AM C DT Body Mass Index 28.31 09/17/2022 10:07 AM CDT Plan of Treatment Not on file Medical Devices Implanted Type Area Library Services Dean Device Identifier Shelf Expiration Date Model / Serial / Lot Grandrew Grradames Dbkierra Pty 6 - [id number] - [id number] Implanted:Qt y: 1 on 10/12/2018 by Homer Talamantes M.D. at [facility] Bone or Tissue Medtronic 04/03/2020 [id number] / [id number] / Gr Grradames Dbm Pst Pl 5 - [id number] - [id number] Implanted:Qt y: 1 on 10/12/2018 by Homer Talamantes M.D. at [facility] Bone or Tissue Medtronic 02/03/2020 [id number] / [id number] / Hardware E.G. Pins/Screws/ Rods Hardware e.g. pins/screw s/rods Spine Lumbar Description:Lumbar fusion Spn Scrw Slr Jaun Mas 6.5x50 - [id number] 0 Implanted:Qt y: 2 on 10/12/2018 by Homer Talamantes M.D. at [facility] Hardware e.g. pins/screw s/rods Medtronic [id number] / / Spn Jose Francisco Slr 5.5x70 - [id number] 0 Implanted:Qt y: 2 on 10/12/2018 by Homer Talamantes M.D. at [facility] Hardware e.g. pins/screw s/rods Medtronic [id number] / / Spn Scrw Slr Sld 5.5 - [id number] 0 Implanted:Qt y: 6 on 10/12/2018 by Homer Talamantes M.D. at [facility] Hardware e.g. pins/screw s/rods Medtronic [id number] / / Ceramic Head Implanted:Qt y: 1 on 05/23/2018 by Anand Kirkland M.D. at [facility] Hip Implant Left: Femur BioMet [id number] 07/21/2027 650-1058 / / [id number] G7 Acetabular Shell Implanted:Qt y: 1 on 05/23/2018 by Anand Kirkland M.D. at [facility] Hip Implant Left: Acetabulum BioMet [id number] 01/25/2028 [id number] / / [id number] Bone Screw Implanted:Qt y: 1 on 05/23/2018 by Anand Kirkland M.D. at [facility] Hip Implant Left: Acetabulum Polly Biomet [id number] 06/21/2027 [id number] / / [id number] G7 Acetabular Linert Implanted:Qt y: 1 on 05/23/2018 by Anand Kirkland M.D. at [facility] Hip Implant Left: Acetabulum BioMet [id number] 11/21/2022 [id number] / / [id number] Femoral Stem Implanted:Qt y: 1 on 05/23/2018 by Anand Kirkland M.D. at [facility] Hip Implant Left: Femur BioMet 03/11/2028 [id number] / / [id number] Standard Neck Implanted:Qt y: 1 on 05/23/2018 by Anand Kirkland M.D. at [facility] Hip Implant Left: Femur BioMet [id number] 12/08/2027 650-1066 / / [id number] Spn [facility] Lmbr P Tlif 14x32 - [id number] 0 Implanted:Qt y: 1 on 10/12/2018 by Homer Talamantes M.D. at [facility] Spine Implant Medtronic 05/13/2026 [id number] Procedures Procedure Name Priority Date/Time Associated Diagnosis Comments EXTI COMPREHENSIVE METABOLIC PANEL, S/P Routine 02/14/2024 10:43 AM CDT LIPID PANEL, S Routine 10/06/2018 6:31 AM STAVE SAW OPERATOR COLONOSCOPY Routine 03/26/2015 from Last 3 Months or Most Recently Relevant to Health Maintenance Results * (ABNORMAL) Lipid Panel (10/06/2018 6:31 AM [facility]) Cholesterol, Total 211(H) mg/dL 2017 7:[address] [facility] Comment: ----REFERENCE VALUE---- Desirable: < 200 Borderline high: 200 - 239 High: > or = 240 Triglycerides 107 mg/dL 10/06/2018 7:[address] [facility] Comment: ----REFERENCE VALUE---- Normal: <150 Borderline high: 150-199 High: 200-499 Very high: > or =500 Cholesterol, HDL, S 72 >=40 mg/dL 10/06/2018 7:[address] [facility] Calculated LDL 118 mg/dL 10/06/2018 7:[address] [facility] Comment: ----REFERENCE VALUE---- Desirable: <100 Above Desirable: 100-129 Borderline high: 130-159 High: 160-189 Very high: > or =190 Cholesterol, Non-HDL, Calculated 139 mg/dL 10/06/2018 7:[address] [facility] Comment: ----REFERENCE VALUE---- Desirable: <130 Above Desirable: 130-159 Borderline high: 160-189 High: 190-219 Very high: > or =220 Blood (Blood, Venous) 10/06/2018 6:31 AM STAVE SAW OPERATOR 10/06/2018 6:36 AM [facility] Fiona Carter P.A.-C., P.A. LAB BL OOD ADD-ON [facility] [address] [place], [place] [id number], [facility] * Colonoscopy (03/26/2015) EXT Colonoscopy HIMS - Report Received and Scanned Normal - See Scanned Report for Details, HIMS - Report Received and Scanned Comment:Colonoscopy complete d in-house. Recommended 5yr recall. Historical Provider GI PROCEDURE ORDERAB LES from Last 3 Months or Most Recently Relevant to Health Maintenance Advance Directives For more information, please contact: [phone] * Full Code (Latest Code Status on [...] Answer Comments Full Code: Discussed Care Teams Engine Builder Relationship Specialty Start Date End Date Meg Beck M.D. [address] [place] [phone] PCP - General 05/06/17
--- OUTSIDE RECORDS SUMMARY | 2024-03-09 07:14 | XMS_ITS | Clinical Summary ---
Author [facility] Address [address], [place] [address] Care Team Providers Care [address] Justice Name Role Phone Charbel Dominguez MD Primary Care Provider [phone] Source Comments You are receiving this document as you are listed as the primary care provider,follow-up provider, or the patient has been referred to you for consultation.This is in compliance with the Medicare andMedicaid EHR Incentive Program,which states Providers who transition their patient to another setting of careor provider of care or refers their patient to another provider of care shouldprovide summary care record for each transition of care or referral. [facility] Allergies Active Allergy Reactions Criticality Noted Date Comments Amiodarone Other, see comments Medium 10/17/2018 Terrible pain, can't speak, burning pain Amitriptyline Other, see comments 01/31/2018 Atrial fib. syncopesyncope Atrial fib. Gabapentin Other, see comments 05/31/2023 Reports being on a high/trance out of body when taking medication. Hydrocodone Other, see comments High 06/20/2019 Niotaze high Melatonin Other, see comments 08/18/2019 Nightmares Metoprolol Unknown,Other, see comments,Dizziness 08/19/2019 syncope Mirtazapine Other, see comments High 08/21/2015 Other reaction(s): Hallucinations Olanzapine Other, see comments Medium 06/13/2019 Trouble with eyes and body pain Medications Medication Sig Dispensed Refills Start Date End Date Status oxyCODONE (ROXICODONE) 5 MG immediate release tablet Take 0.5-1 Tablets (2.5-5 mg) by mouth. Every 6 to 8 hours as needed Active sennosides-doc usate sodium (SENOKOT S) 8.6-50 MG per tablet Take 1-4 Tablets by mouth two times daily as needed for Constipation. Active clonazePAM (KLONOPIN) 0.5 MG tabletIndicati ons:Anxiety Take 0.5 Tablets (0.25 mg) by mouth two times daily as needed for Anxiety. Indications: Feeling Anxious 02/17/20 24 Active omeprazole (PRILOSEC) 20 MG capsuleIndicat ions:Gastroeso phageal Reflux Disease Take 1 Capsule (20 mg) by mouth daily. Take one hour before a meal. Indications: Gastroesophageal Reflux Disease 30 Capsule 02/17/20 24 Active FLUoxetine (PROZAC) 10 MG capsuleIndicat ions:Major Depressive Disorder Take 1 Capsule (10 mg) by mouth daily. Indications: Major Depressive Disorder 02/18/20 24 Active mirtazapine (REMERON) 7.5 MG tabletIndicati ons:insomnia Take 1-2 Tablets (7.5-15 mg) by mouth daily at bedtime. Indications: insomnia 60 Tablet 02/17/20 Active HYDROcodone-ac etaminophen (NORCO) 5-325 MG tablet Take 1 Tab by mouth every 4 hours as needed for Pain. 10 Tab 02/01/20 18 Discontinued([facility] ONLY - Admission Med Rec) sucralfate (CARAFATE) 1 GM/10ML suspension Take 1 g by mouth 4 times a day. Discontinued([facility] ONLY - Admission Med Rec) warfarin (COUMADIN) 4 MG tabletIndicati ons:Afib goal INR 2-3 Take 8 mg by mouth daily. Indications: Afib goal INR 2-3 Discontinued([facility] ONLY - Admission Med Rec) lidocaine (LMX) 4 % creamIndicatio ns:Pain Apply topically every 24 hours as needed. Indications: Pain Discontinued([facility] ONLY - Admission Med Rec) Glucosamine-Ch ondroitin 500-400 MG tablet Take 1 Tablet by mouth daily. Discontinued([facility] ONLY - Admission Med Rec) multivitamin with minerals (CERTAVITE,ZACKARY DEC) tablet Take 1 Tablet by mouth daily. Discontinued([facility] ONLY - Admission Med Rec) polyvinyl alcohol (ARTIFICIAL TEARS) 1.4 % eye drop solution Place 1 Drop into both eyes every 6 hours as needed for Dry Eyes. Discontinued( [facility] ONLY - [facility]) LORazepam (ATIVAN) 0.5 MG tablet Take 1 Tablet by mouth daily as needed for Anxiety. 10 Tablet 08/21/20 19 024 Discontinued( [facility] ONLY - [facility]) QUEtiapine (SEROQUEL) 50 MG tablet Take 1 Tablet by mouth at bedtime as needed (Sleep). 30 Tablet 08/21/20 19 024 Discontinued( [facility] ONLY - [facility]) FLUoxetine (PROZAC) 10 MG capsule Take 1 Capsule (10 mg) by mouth daily. Discontinued FLUoxetine (PROZAC) 20 MG capsuleIndicat ions:Major Depressive Disorder Take 1 Capsule (20 mg) by mouth daily. Indications: Major Depressive Disorder 30 Capsule 02/17/20 24 Discontinued([facility] Discharged) mirtazapine (REMERON) 7.5 MG tabletIndicati ons:insomnia Take 1 Tablet (7.5 mg) by mouth daily at bedtime. Indications: insomnia 30 Tablet 02/17/20 24 Discontinued Active Problems Problem Noted Date Diagnosed Date GERD (gastroesophageal reflux disease) 4 Major depressive disorder, recurrent episode, mo derate 08/19/2019 DOMINIQUE (generalized anxiety disorder) 08/19/2019 Encounters Date Type Department Care Team Description 02/15/2024 11:59 AM CDT - 02/17/2024 2:19 PM CDT Hospital Encounter [id number] [place] [address] Sridevi Kim MD Fewer, Thomas L, MD Suicidal ideation (Primary Dx); Anxiety (HRC) Discharge Disposition: Home from Last 3 Months Immunizations Name Administration Dates Next Due Influenza IIV4 (Quadrivalent) 0.5mL (93965) 07/25 Social History Tobacco Use Types Packs/Day Years Used Date Smoking Tobacco: Former Alcohol Use Standard Drinks/Week Comments No 0 (1 standard drink = 0.6 oz pur e alcohol) Humiliation, Afraid, Rape, and Kick questionnair e Answer Date Recorded Fear of Current or Ex-Partner Not on file Emotionally Abused Not on file 02/15/2024 Within the last year, have y ou been kicked, hit, slapped, or otherwise physically hurt by your partner or ex-partner? No 02/15/2024 Within the last year, have y ou been raped or forced to have any kind of sexual activity by your partner or ex-partner? No 02/15/2024 Housing Stability Vital Sign Answer Dave e Recorded In the last 12 months, was t here a time when you were not able to pay the mortgage or rent on time? No 02/15/2024 In the last 12 months, how many places have you lived? 2 02/15/2024 In the last 12 months, was t here a time when you did not have a steady place to sleep or slept in a alf (including now)? No 02/15/2024 Sex and Gender Information Value Date Recorded Sex Assigned at Not on file Gender Identity Not on file Sexual Orientation Not on file Last Filed Vital Signs Vital Sign Reading Time Taken Comments Blood Pressure 129/75 02/17/2024 11:00 AM CDT Pulse 70 02/17/2024 8:06 AM CDT Temperature 36.8 ??C (98.2 ??F) 02/17/2024 8:06 AM CD T Respiratory Rate 18 02/17/2024 8:06 AM CDT Oxygen Saturation 100% 02/17/2024 8:06 AM CDT Inhaled Oxygen Concentration - - Weight 90.7 kg (200 lb) 02/15/2024 4:07 PM CDT Height 185 cm (6' 0.84) 02/15/2024 4:07 PM CDT Body Mass Index 26.51 02/15/2024 4:07 PM CDT Plan of Treatment Health Maintenance Due Date Last Done Comments Colon Cancer Screening Plan Due 1950 Hep C Screening (Preventive Services) 1950 Medicare Annual Wellness Visit 1950 Cholesterol 1985 Zoster/Shingles (1 of 2) 2000 Abdominal Aortic Aneurysm (AAA) Screening 2015 COVID-19 Vaccine ( season) 2023 Influenza (#1) 2023 01/11/2023, 09/22, 08/21/2019, Additional history exists DTaP/Tdap/Td (5 - Tdap) 11/26/2030 11/26/19, 03/15/2020, 05/02/2010, Additional history exists Pneumococcal 65+ Yrs Completed 04/14/2021, 03/15/20 HepA Aged Out No longer eligi ble [...] age to complete this topic Advance Directives * Full Code (Latest Code Status on File) Date Activated Date Inactivated Comments 02/15/2024 3:50 PM 02/17/2024 4:24 PM * Full Code Date Activated Date Inactivated Comments 08/18/2019 8:04 PM 08/21/2019 2:[address] Relationship Specialty Start Date End Date Charbel Dominguez MD [address] [place] [address] PCP - General Family Practice 02/15/24
--- OUTSIDE RECORDS SUMMARY | 2024-03-09 07:15 | XMS_ITS | Encounter Summary ---
Author Name Unknown Organization [facility] Address [address] [address] Care Team Providers Care Molder Feeder Name Role Phone Charbel Dominguez MD Primary Care Provider [phone] Reason for Referral * Consult/Transfer Care (Routine) Specialty Diagnoses / Procedures Referred By Isaiah t Referred To Contact [address] [address] Referral ID Status Reason Start Date Expiration Date Visits Re quested Visits Authorized Scheduling Instructions This order is your clinician's recommendation for a service and is not an insurance referral which authorizes payment. The recommended service and/or location may not be covered by your insurance plan. Please call the number on your insurance card to find out your specific benefits and coverage for the recommended services and/or location. If you need help scheduling the recommended services, please ask your clinician's staff to assist you. Question Answer Appointment Urgency? Non-Urgent Reason for request? Therapy Requested Services? Therapy/Counseling Pt aware and agrees to this order: Confirmed with patient Comments Therapy appointment Date: 28 February 2024 Time: 8.30AM Provider: [facility] [address], [address] [place] [address] Be sure to bring your ID & insurance card to your appointment. If you have questions or need to change or cancel this appointment please ring the above number. Please note that cancellations must be made at least 24 hours prior to your scheduled appointment time. Failure to keep appointments may result in the clinic declining to schedule additional appointments in the future. Reason for Visit * Reason Comments CRISIS EVALUATION--ED * Auth/Cert (Routine) Specialty Diagnoses / Procedures Referred By Contac t Referred To Contact Diagnoses Suicidal ideation Suicidal ideation Referral ID Status Reason Start Date Expiration Date Visits Re quested Visits Authorized [id number] 1 1 Encounter Details Date Type Department Care Team (Latest Contact Info) Description 02/15/2024 11:59 AM CDT - 02/17/2024 2:19 PM CDT Hospital Encounter [facility] [address] [place] [address] Sridevi Kim MD [address] [place] [address] Scooter Oliva MD [address] [place], [place] [id number] Suicidal ideation (Primary Dx); Anxiety (HRC) Discharge Disposition: Home Social History Tobacco Use Types Packs/Day Years [...] place to sleep or slept in a [facility] (including now)? No 02/15/2024 Sex and Gender Information Value Date Recorded Sex Assigned at Not on file Gender Identity Not on file Sexual Orientation Not on file documented as of this encounter Last Filed Vital Signs Vital Sign Reading [...] Mass Index 26.51 02/15/2024 4:07 PM CDT documented in this encounter Discharge Summaries * Scooter Oliva MD - 02/17/2024 1:[address] [facility] DISCHARGE SUMMARY Admission Date and Time: 02/15/2024 3:50 PM Discharge Date: 02/17/24 Attending Psychiatrist: Scooter Oliva MD Discharge Diagnoses MDD, recurrent, moderate DOMINIQUE GERD Reason for Hospitalization History of Present Illness taken from admission note: Yoshi Almaraz is a 73 y.o. male who has been admitted for SI w/ plan from ED. The patient isbeing admitted on a Voluntary status. The patient carries a diagnosis of MDD, DOMINIQUE, GERD, Afib s/p ablation. On interview, patient reports episode of SI occurred yesterday. He does not have any ongoing suicide thoughts. Yesterday he was having thoughts about shooting himself with a gun in the [place]. He realized how serious the situation had gun, and he prayed. This led him to seek help. Patient discussed his current mood episode. He said that everything began a few months ago when he moved into a seniorliving facility in [place], [place]. Prior that he had been living alone in a camper trailer on his friend's land for the past 10 years. He enjoyed making bonfires in looking at the stars. [place], he estimates that 80% of the people are disabled or homebound and it has been difficult for him to adjust this environment. He is questioning whether he should live there. He has lined up to new opportunities that he thinks will improve his quality of life significantly. 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 He had a knee replacement 2 months ago, and recovered from that at his daughter's house. He enjoyed spending time with his grandchildren while there. Eventually move back to his apartment, and struggled with this again. He had a tooth extraction 1 week ago.He was given meloxicam which caused him to feel like he was ???tripping out. ?? He has been struggling with significant insomnia for the past several weeks. He tried an increased dose of Seroquel (th inks 75 mg), but this caused him to feel woozy and groggy and did not help with sleep. He had an EDvisit yesterday for stomach upset/pain and dizziness. He was sent home with meclizine, which also caused him to feel woozy. Lately patient has been taking Prozac 10 mg daily as well as multivitamin. He does not use any alcohol, cannabis, or other drugs. Per ED SW Note: The patient is a 73 y.o. male who comes to the ED with medics. Pt presents tot he ED via medics from an urgent care due to suicidal thoughts. Pt says he has been dealing with some medical concerns for a couple weeks and that led to him not sleeping well and then some impulsive thoughts for suicide today. Pt says a couple weeks ago he began having abdominal pain. He treated this with OTC Pepto. He then had a wisdom tooth extracted a week ago and had some ongoing pain from that. Pt says in the past couple days he has started to feel light headed and dizzy at times. He has had a couple ED visits over the weekend for workups for these concerns. He says as his pain has continued he has not been sleeping well. Pt says he thinks some of the medication he was given has caused him to have spinning thoughts. He says this is part of what is making it difficult for him to sleep. He will have racing thoughts that keep him awake. He says this morning he started to hear things like you're not going to be ok and you're worthless. When asked more about these he says he thinks they were his own negative thoughts and not voices outside his head or hallucinations. When pt began experiencing these negative thoughts he started to feel suicidal. He says for about 10 seconds I thought, I should go get a gun and shoot myself. Pt says he was able to clear this thought quickly and then drove himself tot he Urgent Care for help. There he was told he needed to be tr ansferred to an ED and so came by medic. Pt notes he owns a variety of guns that are kept locked in his home. Pt endorses increased depressed mood. He notes that about 3 months ago he had to move and this has been a big change for him. He had previously been living in a trailer on the land of a friend. This friend sold the land and pt's daughters encouraged him to get a place to live other than the trailer. Pt moved into a senior building. He says seeing signs about checkers games and activities and the elderly people around really brings him down. He says this has been a big adjustment for him. He says he wishes he was still living in a wooded area on his own. Pt says he sees a psychiatrist in [place]. He takes Fluoxetine nightly. He takes Seroquel for sleep. He started this about 4 months ago and it worked well for a couple months. About a month ago hecalled his clinic to see about increasing the dose and was told he could take 1.5 tabs instead of 1. He says he still isn't sleeping that well with the increased dose. He also reports having a prescription for Clonazepam. He says he tried taking this a couple weeks ago and it stirred my mind up and wasn't calming for him. Pt says he has done therapy in the past. For awhile he was very connected to his therapist but has not been to therapy in years. He tried it a couple years ago with someone new and did not feel a connection. He would like to try it again and is hopeful to make a good connection. Pt says he has 4 daughters and is close with them. He lists them as his primary supports and notes he also has good friends. Pt denies drug or alcohol use. In the ED pt presents as calm and cooperative. He notes that earlier he got loud with staff due to frustration with the wait and being told it would be a few minutes. He appears anxious with longerwaits. He is currently calm and engaged in the assessment. He answers questions appropriately. He is alert and oriented. He says he was hospitalized at [facility] for several years ago and found it he lpful. He is interested in admission today and feels this would be helpful to stabilize. Chemical Dependency History, Past Psychiatric History, Family History and Past Medical History: SeeAdmission Note completed by Scooter Oliva MD on 02/15/2024. Lab Studies, EKG & other diagnostic testing Results for orders placed or performed during the hospital encounter of 08/18/19 Troponin I Result Value Ref Range Troponin I 0.01 0.00 - 0.03 ng/mL INR/Protime Result Value Ref Range Protime 27.5 (H) 11.8 - 14.6 Seconds INR 2.6 (H) 0.9 - 1.1 Basic Metabolic Panel Result Value Ref Range Sodium 140 136 - 145 mmol/L Potassium 4.3 3.5 - 5.1 mmol/L Chloride 103 98 - 109 mmol/L CO2 29 20 - 29 mmol/L Anion Gap 8 7 - 16 mmol/L Calcium 9.8 8.4 - 10.4 mg/dL BUN 12 7 - 26 mg/dL Creatinine 0.96 0.73 - 1.18 mg/dL GFR, Estimated >60 >60 mL/min/1.73m2 GFR, Est If >60 >60 mL/min/1.73m2 Glucose 93 70 - 100 mg/dL Complete Blood Count-No Diff Result Value Ref Range WBC 6.5 3.5 - 10.5 x10(9)/L RBC 5.10 4.32 - 5.72 x10(12)/L Hemoglobin 14.4 13.5 - 17.5 g/dL HCT 45.4 38.8 - 50.0 % MCV 89.0 80.0 - 100.0 fL MCH 28.2 27.6 - 33.3 pg MCHC 31.7 31.5 - 35.2 g/dL RDW 13.0 11.9 - 15.5 % Platelets 247 150 - 450 x10(9)/L Automated NRBC 0 <=0 /100 WBC Lipase Result Value Ref Range Lipase 34 8 - 78 U/L TSH with Free T4 (if TSH Abnormal) Result Value Ref Range TSH, Reflex 1.61 0.30 - 4.50 uIU/mL INR/Protime Result Value Ref Range Protime 31.0 (H) 11.8 - 14.6 Seconds INR 3.0 (H) 0.9 - 1.1 INR/Protime Result Value Ref Range Protime 29.6 (H) 11.8 - 14.6 Seconds INR 2.8 (H) 0.9 - 1.1 INR/Protime Result Value Ref Range Protime 26.1 (H) 11.8 - 14.6 Seconds INR 2.4 (H) 0.9 - 1.1 ECG 12-Lead STAT Result Value Ref Range Ventricular Rate 59 BPM Atrial Rate 59 BPM P-R Interval 162 ms QRS Duration 100 ms QT 418 ms QTc 413 ms P [place] 71 degrees R [place] -11 degrees T [place] 6 degrees If on an antipsychotic, I attest that this patient received metabolic screening (including lipid panel, BMI, blood pressure, fasting glucose or HgbA1C) in the last twelve months. Hospital Course Initial Assessment: Yoshi Almaraz is a 73 y.o. Male with hx of MDD, DOMINIQUE, GERD, Afib s/p ablation who was admitted to [facility] for depression and SI w/ plan. The patient was admitted on a Voluntary status. The treatment team initiated appropriate safety precautions. The patient was admitted for evaluation, sta bilization and treatment for the working diagnosis of MDD, recurrent, moderate. Patient developed an adjustment disorder type reaction after moving from his camper in the [facility] into an independent long-term apartment. Depressive symptoms have persisted for the past several months, so this episode is best characterized as a major depressive episode. There are no substance use concerns. He struggles significantly with insomnia, and has had bothersome reactions to Klonopin, Seroquel. Recommended trial of mirtazapine. Patient motivated to pursue individual psychotherapy after hospitalization Change in Psychiatric Symptoms/Ongoing Assessment: Patient's mood and insomnia improved. His SI, which had resolved prior to initial admission interview, remained absent for the remainder of hospitalization. He had excellent engagement with treatmentteam and will benefit from psychotherapy. He demonstrates very good insight and psychological-minded ness. He discharged in stable condition. He will follow-up with his existing psychiatrist and was referred for psychotherapy. 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 Consider increase to 20 mg if needed. Started mirtazapine 7.5 mg HS PRN insomnia. Prescribed range 7.5-15 mg HS PRN upon discharge. Started PPI for GERD. Cont'd ROAD GRADER OPERATOR Klonopin, decreased dose to 0.25 mg BID PRN. Risk Assessment: Today the patient reports no SI. In addition, they have notable risk factors for self-harm, including recent SI, male gender, socialisolation, access to firearms. Protective factors include history of seeking help when needed, abstinence from drugs/alcohol, no hx of suicide attempts, ability to volunteer a safety plan, and committment to family Additional steps taken to minimize risk include medication changes made to target depression and insomnia Overall the patient is not at imminent risk of suicide. Their chronic risk of suicide is low. A reasonable discharge plan was in place, we determined that the patient had achieved optimal medical benefit from hospitalization, and patient was discharged with follow-up as detailed below. The multidisciplinary treatment team met (RN, OT, older adult social work specialist, Physician) on a daily basis to discuss patient care and treatment planning. The psychiatric inpatient setting provided close nursing supervision and access to multiple treatment modalities and programming (group therapy, OT, one-to-one therapy.) Patient support systems such as family, rn case mgr, and other care providers were contacted as appropriate for collateral information and treatment planning. Legal Status: voluntary Group Attendance: good Level of cooperation and Medication adherence: good Discharge planning and coordination of care: Patient was discharged to home. Patient was prescribeda 30-day supply of all medication. Follow-up appointment(s) were made: see below. Consults No consultations were completed during this hospitalization. Mental Status Exam on Discharge BP 129/75 Pulse 70 Temp 98.2 ??F (36.8 ??C) (Oral) Resp 18 Ht 6' 0.84 (1.85 m) Wt 90.7 kg (200 lb) SpO2 100% BMI 26.51 kg/m?? Appearance: casually dressed casually groomed sitting in chair eating lunch Attitude: cooperative, engaged, friendly Motor: normal Gait and Station: normal Speech: normal prosody (rate) and latency (delay) Language: intact Thought process and associations: linear and goal-oriented Thought content: No SI, HI, AVH, delusions, nor paranoia Mood: depressed and anxious, improving Affect: better range today Orientation: Oriented to person, place, time, and situation Attention: intact Memory: recent and remote memory intact Fund of Knowledge: normal Insight: very good Judgment: very good Discharge Plans Condition at discharge:fair. Discharge destination: home Labs or testing which should be done or considered in the outpatient setting: none needed Appointments and Follow Up: Discharge Orders (Non-med) If you have new or worsening symptoms or any of the following symptoms, call your Primary Care doctor: Comments: o Fever of 101 Fahrenheit or higher o Pain that does not improve with pain medication o Unable to tolerate liquids and stay hydrated or Continual nausea or vomiting o New severe lightheadedness or dizziness No Pending Labs Behavioral Health Comments: Therapy appointment Date: 28 February 2024 Time: 8.30AM Provider: [facility] [address], [address] [place] [address] Be sure to bring your ID & insurance card to your appointment. If you have questions or need tochange or cancel this appointment please ring the above number. Please note that cancellations mustbe made at least 24 hours prior to your scheduled appointment time. Failure to keep appointments may result in the clinic declining to schedule additional appointments in the future. References: Referral Connection Specialty Connection Noa Bhatti Consult Page Question Answer Comment Appointment Urgency? Non-Urgent Reason for request? Therapy Requested Services? Therapy/Counseling Pt aware and agrees to this order: Confirmed with patient Discharge Medications Upon discharge, patient is on 0 scheduled antipsychotic medications. Current Discharge Medication List START taking these medications Details clonazePAM (KLONOPIN) 0.5 MG tablet Take 0.5 Tablets (0.25 mg) by mouth two times daily as needed for Anxiety. Indications: Feeling Anxious mirtazapine (REMERON) 7.5 MG tablet Take 1-2 Tablets (7.5-15 mg) by mouth daily at bedtime. Indications: insomnia Qty: 60 Tablet, Refills: 0 omeprazole (PRILOSEC) 20 MG capsule Take 1 Capsule (20 mg) by mouth daily. Take one hour before a meal. Indications: Gastroesophageal Reflux Disease Qty: 30 Capsule, Refills: 0 CONTINUE these medications which have CHANGED Details FLUoxetine (PROZAC) 10 MG capsule Take 1 Capsule (10 mg) by mouth daily. Indications: Major Depressive Disorder CONTINUE these medications which have NOT CHANGED Details oxyCODONE (ROXICODONE) 5 MG immediate release tablet Take 0.5-1 Tablets (2.5-5 mg) by mouth. Every 6 to 8 hours as needed sennosides-docusate sodium (SENOKOT S) 8.6-50 MG per tablet Take 1-4 Tablets by mouth two times daily as needed for Constipation. Total time spent: 50 minutes, this time was spent preparing to see the patient , obtaining and/or reviewing separately obtained history, performing a medically appropriate examination, counseling andeducating the patient/family/caregiver, ordering medications, tests, or procedures, communicating with treatment team, documenting clinical information in the electronic health record, and coordinating patient care. Report completed and signed by: Scooter Oliva MD NE7 documented in this encounter Discharge Instructions * Discharge Instructions* Carolina Johnson - 02/17/2024 10:56 AM CDT Resources 1. [employer] [place] [employer] [facility] [address] [place] [address], [address], [address] ([employer] [place] [employer]) improves the lives of children and adults withmental illnesses and their families by providing free classes on mental illnesses and support groups for adults with mental illnesses, parents and family members. For more information: Toll free: 6-954-EMPG-Barburrito Website: www.namihelps.org 2. Online go to: www.[place]Help.info 3. [facility] (serving [facility]) [address] [place] [address] Crisis Line Numbers 1. [facility] [phone] 2. [facility] ([facility]) [phone] 3. [facility] [phone] 4. National Suicide Prevention Lifeline 986 * Appointments* Carolina Johnson - 02/17/2024 10:53 AM CDT You reported that you have an appointment with your psychiatrist Corine Soler at the [facility] 29 February 2024 and so no psychiatric appointment was scheduled for you. * Discharge Instr - Safety* Carolina Johnson - 02/17/2024 10:56 AM CDT Call your clinic or seek medical help if you have any sudden change in your condition or if you have any of the following: Suicidal or homicidal thoughts, dramatic changes in appetite or sleep pattern, abuse of alcohol and/or other drug use; increase in anxiety, agitation, isolation, paranoia, disturbed thinking, hallucinations, or feelings of depression or hopelessness; medication side effects that are not tolerable. 988 Suicide and Crisis Lifeline - If you or someone you know is struggling or in crisis, help is available. Call or text 988 or chat 988Seederline.org ???988?? es el n??bety telef??volodymyr nacional de bettie d??gitos para conectarse directamente con la L??cecilia 988 de Prevenci??n del Suicidio y Crisis (988 Suicide and Crisis Lifeline). El 988 es m??s queun n??bety f??cil de recordar -- es timoteo conexi??n directa a cuidados y apoyo compasivo y accesible para cualquier persona que est?? sufriendo por problemas de hector mental - ya sea por pensamientos suicidas, crisis de hector mental, crisis de uso de sustancias o cualquier otro tipo de sufrimiento emocional. documented in this encounter Medications at Time of Discharge Medication Sig Dispensed Refills Start Date End Date clonazePAM (KLONOPIN) 0.5 MG tabletIndications:A nxiety Take 0.5 Tablets (0.25 mg) by mouth two times daily as needed for Anxiety. Indications: Feeling Anxious 02/17/2024 FLUoxetine (PROZAC) 10 MG capsuleIndications: Major Depressive Disorder Take 1 Capsule (10 mg) by mouth daily. Indications: Major Depressive Disorder 02/18/2024 mirtazapine (REMERON) 7.5 MG tabletIndications:i nsomnia Take 1-2 Tablets (7.5-15 mg) by mouth daily at bedtime. Indications: insomnia 60 Tablet 02/17/2024 omeprazole (PRILOSEC) 20 MG capsuleIndications: Gastroesophageal Reflux Disease Take 1 Capsule (20 mg) by mouth daily. Take one hour before a meal. Indications: Gastroesophageal Reflux Disease 30 Capsule 02/17/2024 oxyCODONE (ROXICODONE) 5 MG immediate release tablet Take 0.5-1 Tablets (2.5-5 mg) by mouth. Every 6 to 8 hours as needed sennosides-docusate sodium (SENOKOT S) 8.6-50 MG per tablet Take 1-4 Tablets by mouth two times daily as needed for Constipation. documented as of this encounter Progress Notes * Daisha Billingsley RN - 02/17/2024 9:51 AM CDT [facility] Discharge Note - Nursing Admission Date/Time: 02/15/2024 11:59 AM Attending MD: Scooter Oliva MD Patient discharged: to Home. Discharge Date: 02/17/2024 Discharge Time: 1419 Patient accompanied by: relative daughter Transported by: Walked Valuables were taken home by patient: Yes Discharge instructions given and explained to patient: Yes Discharge Patient Education Plan completed, taught, and provided to patient/caregiver at discharge:Yes Discussed medication risks with patient Patient understands medications usage and side effects Patient understands diagnosis Action Plan for management of symptoms/side effects/complications requiring medical attention established and shared with patient/caregiver Was patient discharged on Warfarin? {(Do not delete line; Warfarin documentation is required) No Patients general condition on discharge: Patient is alert and orientated. He reports he is having high anxiety about discharging so this nurse gave him a prn clonazepam right after instructions were given. Denies pain, SI/HI, paranoia or auditory/visual hallucinations. Patient verbalizes understanding about medications and schedule. He accepts follow up therapy appointment made for him. Discussedsymptoms to return to ER/call 911 for. Also pointed out crisis phone numbers available in S for patient to use. Patient was escorted to NE entrance by [facility] with all belongings to go home with daughter. Okay to discharge. All medical devices (telemetry/IV/etc) unless otherwise ordered, have been removed and stored: N/A --- End of Report --- * Scooter Oliva MD - 02/16/2024 12:[address] [facility] PROGRESS NOTE: PATIENT NAME: Yoshi Almaraz DATE OF SERVICE: 02/16/2024 ATTENDING PSYCHIATRIST: Scooter Oliva MD HOSPITAL DAY #1 CHIEF COMPLAINT Better than yesterday INTERVAL HISTORY No acute events overnight. On interview patient reports feeling better than yesterday. He slept 5-6hours last night, and did not have any bothersome side effects to mirtazapine or the 1 time dose ofhydroxyzine that he received in the evening. He has not having any SI or wish today. He spenttime discussing his relationships with his family members, important life lessons he learned from his mother. He expressed gratitude for the treatment team and the hospital in general. He is looking forward to his daughters visiting him later. REVIEW OF SYSTEMS Constitutional: denies concerns Psychiatric: no SI/HI, no paranoia, delusions, or AVH Medication Side effects: Denies concerns CHART REVIEW & MULTIDISCIPLINARY TEAM MEETING Met with the multidisciplinary treatment team and discussed care and treatment planning. Staff Report: Subjective: I came here before, I got was able to get go therapists and that helped. I just need that again Objective: Patient was visible and social on the unit with peers and staff. Pt reported depressive thoughts but appeared to be in a great mood. He reported needing more mental health resources to help him after discharge. He was cooperative with medication and had no other concern.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 The patient needs inpatient psychiatric treatment for diagnostic assessment and treatment of the following symptoms: SI Estimated length of stay is 3-5 days. Anticipated disposition: home Care Coordination: has psychiatrist in [place]. Refer for psychotherapy. Remove firearms. Suicide Risk Assessment: Today the patient reports no SI. In addition, they have notable risk factors for self-harm, including recent SI, ongoing depression,insomnia, male gender, social isolation, access to firearms. Protective factors include history of seeking help when needed, abstinence from drugs/alcohol, no hx of suicide attempts, ability to volunteer a safety plan, and committment to family Additional steps taken to minimize risk include medication changes made to target depression and insomnia Overall the patient is not at imminent risk of suicide. Their chronic risk of suicide is low. Report Completed by: Scooter Oliva MD Total time spent: 75 minutes, this time was spent preparing to see the patient , obtaining and/or reviewing separately obtained history, performing a medically appropriate examination, counseling andeducating the patient/family/caregiver, ordering medications, tests, or procedures, communicating with treatment team, documenting clinical information in the electronic health record, and coordinating patient care. documented in this encounter ED Notes * Rosario Herbert RN - 02/15/2024 1:06 PM CDT Pt is a transfer from [facility]. He is currently being assessed by . Behavior regulated but reportedly was agitated and threatening in [place]. * Sharonda Hui - 02/15/2024 12:42 PM CDT Pt said 5 minutes this boy is about to go crazy. You better have a whole crew. Melva CABA in room at the time * Melva Hauser - 02/15/2024 12:39 PM CDT Pt given glass of water, stated he was going to hurt someone if not helped soon. Pt stated was going to explode and that we would need a whole team of people to stop him. Becoming increasingly agitated and restless. * Baylee Willson PA-C - 02/15/2024 12:11 PM CDT [facility] Emergency Medicine Visit Note Chief Complaint: CRISIS EVALUATION--ED HPI 73-year-old male with recurrent major depression, anxiety disorder, chronic pain syndrome, GERD whois presenting to the emergency department for suicidal ideation. Patient was brought in by medics who report that patient was endorsing wanting to end his life. He does have access to firearms at home. Patient reports that for the past 2-3 months he has been having multiple symptoms. Tells me that hehas had a burning sensation in his abdomen for approximately 4 weeks. He has been taking Pepto-Bismol the last 2 weeks without any relief and took it every day up until yesterday. He does endorse having a black stool yesterday. He denies any changes in abdominal pain with oral intake. He denies anynausea, vomiting, lightheadedness, chest pain, difficulty breathing, shortness of breath, urinary symptoms, constipation. Tells me that his abdominal pain is worse when laying flat. Patient tells me that he has been having dizziness that is worse in the morning. He tells me that lately it has been constant. He went into the emergency department yesterday for his dizziness and reports that his workup was normal. He was prescribed meclizine which he tried taking yesterday and states that this made his symptoms worse it felt like I was on acid. He is still endorsing dizziness here today. Triage Vitals [02/15/24 1215] Temp 98.5 ??F (36.9 ??C) Temp src Oral Pulse 71 Resp 20 BP 124/82 SpO2 98 % Physical Exam General: Well appearing, not in acute distress Head: No signs of trauma Eyes: Normal pupils, no scleral icterus or conjunctival injection ENT: Freely moving neck, mucous membranes moist CV: Normal rate, regular rhythm, normal S1/S2, no murmurs Resp: Non-labored respirations, lungs clear to ausculation bilaterally, no wheezes, rales, or rhonchi GI: Soft, non-tender, non-distended : No CVA tenderness MSK: No edema or tenderness to palpation of the lower extremity Skin: Warm and dry. No rashes or diaphoresis Neuro: Awake and alert x 3. Moving all 4 extremities appropriately. Psych: Behavior normal MDM: 73-year-old male presenting with suicidal ideation. Vitals reassuring. In reviewing the patient's medical chart he was seen at [facility] Emergency Department yesterday for dizziness and abdominal symptoms. MR/MRA of head and neck was negative for any acute process. He had a CT scan of his abdomen with contrast that showed an indeterminate renal lesions bilaterally that was concerning for potential renal neoplasm but would need an outpatient MRI. Patient was planning to have a colonoscopy and endoscopy performed this week . His metabolic panel was unremarkable. His LFTs were unremarkable. He had a normal high sensitivity troponin. His CBC was unremarkable. He had a normal lipase. His lactate was normal. Urinalysis was negative for any infection. Had an EKG that is reported as sinus rhythm with rates in the 60s and normal intervals. . He has no focal neuro deficits on his exam. I would not plan to repeat any of his imaging here today and am concerned primarily for psychosomatic. I was able to contact his daughter on arrival, Bea who reports that patient had a similar episodein 2018 when he was hospitalized inpatient psychiatry. She tells me that at this time he was also endorsing multiple symptoms including chest pain and abdominal pain and had a workup at that time which was also reassuring. She states that he has difficulty coping and he intermittently follows with an outpatient mental health provider. She feels that his symptoms are secondary to his mental healthdecompensation. Baylee Willson PA-C ED Course as of 02/15/24 1459 e Feb 15, 2024 1249 Sign out received, assumed care at this time. Presents with SI with plan to use firearm. Recent thorough negative medical work up at [facility]. Suspect psychosomatic symptoms in setting of depression, no work up planned. Plan for SW consultation. [JZ] 1251 ATTENDING: I personally saw the patient, performed kirkland elements of the visit, and supervised patient care with the butter grader. MDM: SI with plans to shoot self and having intrusive thoughts to end it. He si holdable. Will have SW assess him [TG] 5379 Agree with social work assessment that patient would benefit from admission for suicidal ideation. He is agreeable, bed order placed. [JZ] 1458 Patient signed out to admitting psychiatrist. [JZ] 1459 Brief sign-out given to oncoming ED provider as patient awaits transfer to floor. [JZ] ED Course User Index [JZ] Gita Menendez PA-C [TG] Sridevi Kim MD Clinical Impressions as of 02/15/24 1459 Suicidal ideation documented in this encounter Miscellaneous Notes * Payor Communication - Lauren Parker RN - 02/16/2024 11:35 AM CDT Mental Health Utilization Review Note Suicide Ideation and risk of attempt. (One or more selected: Meets Criteria) Hopelessness Intent Plan Meets Criteria: YES documented in this encounter Plan of Treatment Scheduled Referrals Name Type Priority Associated Diagnoses Orde r Schedule Behavioral Health Referral Routine Suicidal ideation Ordered: 02/17/2024 documented as of this encounter Visit Diagnoses Diagnosis Major depressive disorder, recurrent episode, moderate (HRC)- Primary Major depressive disorder, recurrent episode, moderate Suicidal ideation Anxiety (HRC) Anxiety state, unspecified DOMINIQUE (generalized anxiety disorder) Generalized anxiety disorder GERD (gastroesophageal reflux disease) Esophageal reflux * Plan of Care - Karoline Samuels PharmD - 02/17/2024 11:14 AM CDT [facility] Floor Pharmacy Home Medication Review and Destruction ATTN Nursing: The patients home medications have been reviewed by the pharmacist and the following home medications have been destroyed per protocol: Co-mingled medications in plastic tube unlabeled. Any questions or concerns please call Outpatient Pharmacy at [phone]. This destruction was authorized by Dr. Monique Wooten. * Plan of Care - Wilson Dasilva RN - 02/17/2024 10:16 AM CDT Problem: Adult Behavioral Health Plan of Care Goal: Plan of Care Review Outcome: Completed [facility] Plan of Care Note Assessment: Plan of care Plan: Continue with plan of care Subjective: I am doing well Objective: Pt was up and sitting in dining room and socializing with peers. Pt reported sleeping well last night and feeling well mentally and physically at this time. Denies thoughts of harming selfor others. Pt appears in neutral mood and affect. Pt will discharge home today. Legal Status: Orders Placed This Encounter Procedures Legal Status: Voluntary Privilege Level: Safety Observation: q15 minute checks Suicidal Ideation/Homicidal Ideation: Mood: calm Thought Process: relevant; Thought Content: relevant Insight: insight not appropriate to situation Delusions: no delusions; Hallucinations: denies hallucinations Behavior: cooperative MIAHTAPS: 0 Vital Signs: Patient Vitals for the past 24 hrs: BP Temp Temp src Pulse Resp SpO2 02/17/24 0806 (!) 150/90 98.2 ??F (36.8 ??C) Oral 70 18 100 % 02/16/24 1600 100/57 97.3 ??F (36.3 ??C) Temporal Art 79 16 99 % Medical issues: Medications: No additional behavioral or safety concerns noted. --- End of Report --- * Plan of Care - Matt Tessy Bj - 02/17/2024 9:06 AM CDT [facility] Social Work Discharge Note Admission Date/Time: 02/15/2024 11:59 AM Attending Practitioner: Scooter Oliva MD County: [place] Insurance: MEDICARE Secondary Insurance: MEDICA Disposition: Home Address: [place] [address] Expected Discharge Date/Time: 02/18/2024 Legal Status at Discharge: Voluntary Transportation Arrangements: Transportation Provided By: Family/friend Discharge Collateral Contact: Collateral Contacts: Family/Friend, Psychiatrist Family/Friend Contact Name: Bea - Daughter Family/Friend Contact Psychiatrist Name: Corine Soler Psychiatrist Phone : [facility] V[facility]ctor Holm MATT Services: N/A Discharge Safety Risk Assessed: Yes; Patient is denying thoughts of harm to self or others at time of discharge. Discharge Summary: Team met with patient this morning on the unit in preparation for discharge. Patient states he is doing well today and feels that is his on an upward curve. States he did sleep last night, discussed medications and following up with his outpatient provider for any needed adjustments, and a therapy appointment was being made. Patient reports he has found it helpful to be at the hospital and around others that have been having similar issues to him. The patient also states his daughters plan cleo involved and keep him accountable, which he is finding as a helpful thing and not an intrusive thing. Please see the AVS for discharge appointment times, dates, and locations. Mobile Architect also called and spoke with the patient daughter, Bea, per his request. Discussed plan for discharge, sending with needed medications and appointments. Daughter is in agreement with the plan for discharge and will be picking him up later this afternoon. * Plan of Care - Olman Johnson, OTR/L - 02/17/2024 8:34 AM CDT [facility] Occupational Therapy Plan of Care Note Group Name Attendance Minutes Topic Movement/Exercise Absent/Refusal Activity Room/Group Life Skills/IM&R Attended 15 IM&R recovery strategies Clinic Absent/Refusal Daily Group Total: 1 OT Evaluation Minutes: Evaluation: All OT Evaluations are found under Consults - OT Notes. Group Daily Assessment Sensory Items/Activities Offered: Grooming: Fair attention to grooming Affect: Limited range, Brightens with activity Cognitive/Tracking: Fluctuating attention span Social Skills: Tangential, Rambling Work Skills: Investment/Participation: Arrives to group late Comments: 1:1 OT Assessment Minutes: Topic: Comments: Sensory Assessment According to current staff observation, sensory self-report, and history of behavior the following interventions were offered: Patient was receptive to the following interventions: Assessment and Interpretation of the Sensory Consultation are as follows: Patient Care and Considerations: Recommendations to try when patient has stabilized: Stress/Anxiety/Energy Level Topic: Patient reported anxiety before: Patient reported anxiety after: Patient reported energy before: Patient reported energy after: Patient reported Zone of Regulation before: Patient reported Zone of Regulation after: Patient reported benefits: Patient other reported benefits: Initial Assessment Patient Reported Strengths: Caring, Kind Patient's Curriculum Track Boosting Mood & Energy Patient's Recovery Goals Patient's Recovery Goals: Yes Patient's Personal Recovery Goal: Get balanced again. First Short Term Goal Related to Achieving Personal Goal: Get a new schedule set up for myself. Goal Status: Continue, Discharged Step 1 in Achieving Goals: Get good sleep. Step 1 Goal Status: Continue, Discharged Patient's Goals OT Treatment Goals 1. Assess and provide education regarding functional skills, identified problem areas, and mental health symptoms. 2. Provide Treatment in above problem areas in a group setting and/or on a 1:1 basis. 3. Provide a safe environment. 4. Encourage daily, consistent participation in OT groups to work on above goals. OT Treatment Plan Patient will attend the following OT Groups: Clinic, Life Skills, Illness Management and Recovery (IM&R), Unit, Grooming and/or Movement/Exercise. * Plan of Care - Michelle Blank RN - 02/17/2024 1:08 AM CDT [facility] Plan of Care Note Assessment: Sleep Plan: Patient will sleep > 5 hrs Subjective: Objective: Patient was observed sleeping comfortably during rounds. Respirations even and non labored. 15 minute checks ongoing. --- End of Report --- * Plan of Care - Flo Cox RN - 02/16/2024 3:56 PM CDT Problem: Adult Behavioral Health Plan of Care Goal: Plan of Care Review Outcome: Progressing Goal: Patient-Specific Goal (Individualization) Outcome: Progressing Goal: Adheres to Safety Considerations for Self and Others Outcome: Progressing Goal: Absence of New-Onset Illness or Injury Outcome: Progressing Goal: Optimized Coping Skills in Response to Life Stressors Outcome: Progressing Goal: Develops/Participates in Therapeutic [place] to Support Successful Transition Outcome: Progressing Pt has been out in the unit most of the shift and was social with his peers. Pt attended and participated in the evening's music therapy. Pt calm, controlled and pleasant during 1:1 and reported thathe was feeling much better today and stated that his daughter visited and had a good visit. Pt reported that he met with the treatment team and stated that he was started with Klonopin prn for his anxiety and requested to know if he could get a dose and was advised that it was to early for the prn and was understanding. Later in the shift he requested and received prn Klonopin and later verbalized relief. Pt reported that the plan was to be discharged tomorrow after meeting with the treatment team and have scheduled appointments made before discharge. Pt complained of shoulder pain and reported that he uses Aspercreme at home, HO notified and ordered Diclofenac and it was applied on Pt. Pt denies suicidal ideation, hallucinations, thoughts of self harm and contracts for safety. * Plan of Care - Cece Aguayo RN - 02/16/2024 2:45 PM CDT Problem: Suicide Risk Goal: Absence of Self-Harm Outcome: Progressing [facility] Plan of Care Note Assessment: Depressed Mood Plan: Mood will lift and pt will participate in plan of care. Monitor for safety, effects of medications and changes in behavior. Subjective: I won't do anything to myself. Objective: Pt spoke with daughter Bea and stated that she would come visit this evening. Reportedstomach ache rated 5/10 declined intervention. Has been out and social in the milieu, interacts often with peers and staff and had visit from Community Case Manager. Pt's daughter visited and was given verbal update with patient. Pt was given .25mg klonopin prn for anxiety at 1120. Laureanoies SI. --- End of Report --- * Initial Assessments - Olman Johnson, OTR/L - 02/16/2024 9:16 AM CDT [facility] Initial Assessment Diagnosis: Encounter Diagnoses Name Primary? Suicidal ideation Yes Patient Data on File [address] [facility] [id number] Social History Socioeconomic History Marital status: Single Spouse name: Not on file Number of children: Not on file Years of education: Not on file Highest education level: Not on file Occupational History Not on file Tobacco Use Smoking status: Former Smokeless tobacco: Not on file Substance and Sexual Activity Alcohol use: No Drug use: No Sexual activity: Not on file Other Topics Concern Not on file Social History Narrative Not on file Social Determinants of Health Financial Resource Strain: Low Risk (03/01/2023) Received from [facility] Overall Financial Resource Strain (CARDIA) Difficulty of Paying Living Expenses: Not hard at all Food Insecurity: No Food Insecurity (03/01/2023) Received from [facility] Hunger Vital Sign Worried About Running Out of Food in the Last Year: Never true Ran Out of Food in the Last Year: Never true Transportation Needs: No Transportation Needs (03/01/2023) Received from [facility] PRAPARE - Transportation Lack of Transportation (Medical): No Lack of Transportation (Non-Medical): No Intimate Partner Violence: Unknown (02/15/2024) Humiliation, Afraid, Rape, and Kick questionnaire Fear of Current or Ex-Partner: Not on file Emotionally Abused: Not on file Physically Abused: No Sexually Abused: No Housing Stability: Low Risk (02/15/2024) Housing Stability Vital Sign Unable to Pay for Housing in the Last Year: No Number of Places Lived in the Last Year: 2 Unstable Housing in the Last Year: No Patient Stated Information Initial Assessment Patient Strengths: Caring, Kind 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 Initial Assessment Patient Stressors: Increase in psychiatric symptoms Initial Assessment Patient Coping Skills: Talk to someone Favorite Leisure/hobbies/exercise: carpentry, socialize w family and friends . How can we make your hospital stay more comfortable? Patient declined grooming and sensory supplies. Sensory Section Patient noticed sensory sensitivities to Patient noticed strong attractions to Patient noticed changes or concerns with OT observed sensory sensitivities to OT observed strong attractions to OT observed changes or concerns with Do you experience pain or migraine? yes Location of pain or migraine? shoulder Duration of pain or migraine? Do you have a trauma history? Patient has a trauma history of Do you feel your sensory sensitivities affect your daily life activities? Sensory screen offered to patient no, monitor for additional SI needs Initial sensory items/activities receptive and preferred Patient declines sensory items at this time Initial sensory items/activities receptive and preferred specifics Patient's initial report stress/anxiety before: 5: Moderate stress/anxiety Patient's initial report stress/anxiety after: Additional comments Patient chosen programming curriculum track: Boosting Mood & Energy Patient's Goal for this Hospitalization: please refer to patient's recovery goal below. Subjective: I need to get balanced again. Patient's Recovery Goals Patient's Recovery Goals: Yes Patient's Personal Recovery Goal: Get balanced again. First Short Term Goal Related to Achieving Personal Goal: Get a new schedule set up for myself. Goal Status: Set Step 1 in Achieving Goals: Get good sleep. Step 1 Goal Status: Set Assessment Yoshi was cooperative, grooming appeared adequate, eye contact was limited, affect/mood appeared flat, energy level appeared low, speech/responses were WNL, thinking/processing appeared WNL, exhibited symptoms of anxiety and depression, coping skills appeared limited, insight appeared limited, was oriented to OT groups and encouraged to attend, will be further assessed in OT groups as able. Basedon this assessment, interventions for this person could be focused on: coping skills, exercise, leisure, positive thinking, re-motivation activities, self-care, sleep hygiene, and socialization opportunities. Goals Treatment Goals: 1. Assess and provide education regarding functional skills, identified problem areas and mental health symptoms. 2. Provide Treatment in above problem areas in a group setting and/or on a 1:1 basis. 3. Provide a safe environment. 4. Encourage daily, consistent participation in OT groups to work on above goals. 5. Please refer to patient's recovery goals above. Plan Treatment Plan: Patient will attend the following OT groups: Clinic, Life Skills, Movement/Exercise, Unit, Grooming, and Illness, Management, and Recovery (IM&R) Group. Please refer to the OT Progress Note for Treatment Goals. I acknowledge that the above information has been reviewed with the patient and the patient agrees with the above chosen problem area(s), goal(s) and plan. --- End of Report --- * Initial Assessments - Tessy Gutierrez - 02/16/2024 8:00 AM CDT [facility] Social Work Initial Assessment Admission Date/Time: 02/15/2024 11:59 AM Age: 73 y.o. Attending Practitioner: Scooter Oliva MD County: [place] Admitting Diagnosis: Encounter Diagnoses Name Primary? Suicidal ideation Yes Reason for admit: Patient brought to the hospital by medics from an Urgent Care where he had gone due to suicidal thoughts. Please see the ED crisis assessment for further information on patient admission. Legal Status: On Admission: Voluntary Current: Voluntary Committed: No Current Order Received in Chart: N/A Legal Issues: None indicated Living Situation: Alone - [address] Apt in [place] Alternative Decision Maker: No Collateral Contacts Collateral Contacts: Family/Friend, Psychiatrist Family/Friend Contact Name: Bea - Daughter Family/Friend Contact Psychiatrist Name: Corine Soler Psychiatrist Phone : [facility] [place] [employer] Insurance: MEDICARE Secondary Insurance: MEDICA Employment/Income: SSI Psychiatric/Substance Use Disorder/Medical History Patient has a previous hospitalization at [facility] in July of 2019. Has providers in the community through the [facility]. 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 Please see the H&P for further information on patient medical history. Data Team met with patient on the unit today in an alcove. The patient states he is feeling better todaythan he was yesterday. Discussion of medication with the provider and reports he is not having thoughts of suicide or any type of wish today. Patient talked about his closeness with family and how this is helpful for him and realizing that family is trying to help him and not boss me around. States he is looking forward to some of his daughters visiting him and wanting to get restarted with therapy - as this was very helpful to him in the past. Discussed possible timeline for discharge with patient. GAIN Substance Disorder Screening (SDScr) GAIN-SS (When was the last time the patient - per patient report) Able to assess?: Yes The patient used alcohol or drugs weekly?: 0 (never) Patient spent a lot of time getting or using alcohol or drugs, or feeling the effects of alcohol ordrugs: 0 Patient used alcohol/drugs even though caused social problems, lead to fights/trouble w/others: 0 (Never) Patient's use of alcohol/drugs caused them to give up, reduce/have problems at important activitiesat work/school/home/social events: 0 (Never) Patient had withdrawal problems from alcohol/drugs like shaking hands/vomiting/trouble sitting still/sleeping or used alcohol/drugs to stop sickness/withdrawal problems: 0 (Never) Score ((# of symptoms endorsed in the past year - total number of 3s and 2's): 0, Low, no MATT assessment indicated MICD Integrated Assessment MICD Integrated Assessment Indicated?: No, GAIN-SDScr does not indicate further assessment Stages of Change Stage of Mental Health Treatment: Stage 3: Preparation/Late Persuasion (Engaged in relationship with community provider, willing to participate in discussion about CO, evidence of symptom reduction for at least 2-4 weeks) CO Treatment Recommendations for Inpatient/Outpatient: Skill development interventions (stage 2), Support participation in skill development interventions (stage 3) Stage of Substance Use Treatment: N/A CD Treatment Recommendations for Inpatient/Outpatient: N/A Clinical Assessment Strengths: Agreeable to hospitalizations, Communication skills, Cooperative, Family/social support,Has insurance, Motivated for recovery, Problem solving skills, Willing to take medications, Stable housing Barriers/Vulnerabilities: multiple psychosocial issues, does not have case management Risk Assessment: Patient is denying thoughts of harm to self while on the unit. Patient will remainon routine unit safety checks for the duration of the hospitalization. Current Aggression towards others: No Clinical Summary: Patient is here due to increasing suicidal thoughts in the community. Patient will need stabilization and return to community supports at time of discharge. Reasons for readmission in last 30 days Reasons for Readmission (30 day):: (N/A) Initial Social Work Plan Anticipated Disposition: Home * Plan of Care - TenzinAundrea olivaresshawna Vinson, OTR/L - 02/16/2024 7:20 AM CDT [facility] Occupational Therapy Plan of Care Note Group Name Attendance Minutes Topic Movement/Exercise Absent/Refusal Activity Room/Group Life Skills/IM&R Absent/Refusal Clinic Absent/Refusal Daily Group Total: 0 OT Evaluation Minutes: Evaluation: All OT Evaluations are found under Consults - OT Notes. Group Daily Assessment Sensory Items/Activities Offered: Grooming: Affect: Cognitive/Tracking: Social Skills: Work Skills: Investment/Participation: Comments: 1:1 OT Assessment Minutes: 15 Topic: IM&R recovery goal IM&R Recovery Goal: This greeting card writer discussed IM&R recovery strategies with patient, The patient identified the below noted personal recovery goal, This greeting card writer and the patient developed the abovesteps to help the patient achieve his/her goal, Patient is future oriented, Patient was invested inmaking these changes, Mobile Architect and/or other staff person will check back with patient at a later timeto encourage/assist with follow through of these above goals Comments: Sensory Assessment According to current staff observation, sensory self-report, and history of behavior the following interventions were offered: Patient was receptive to the following interventions: Assessment and Interpretation of the Sensory Consultation are as follows: Patient Care and Considerations: Recommendations to try when patient has stabilized: Stress/Anxiety/Energy Level Topic: Patient reported anxiety before: Patient reported anxiety after: Patient reported energy before: Patient reported energy after: Patient reported Zone of Regulation before: Patient reported Zone of Regulation after: Patient reported benefits: Patient other reported benefits: Initial Assessment Patient Reported Strengths: Caring, Kind Patient's Curriculum Track Boosting Mood & Energy Patient's Recovery Goals Patient's Recovery Goals: Yes Patient's Personal Recovery Goal: Get balanced again. First Short Term Goal Related to Achieving Personal Goal: Get a new schedule set up for myself. Goal Status: Set Step 1 in Achieving Goals: Get good sleep. Step 1 Goal Status: Set Patient's Goals OT Treatment Goals 1. Assess and provide education regarding functional skills, identified problem areas, and mental health symptoms. 2. Provide Treatment in above problem areas in a group setting and/or on a 1:1 basis. 3. Provide a safe environment. 4. Encourage daily, consistent participation in OT groups to work on above goals. OT Treatment Plan Patient will attend the following OT Groups: Clinic, Life Skills, Illness Management and Recovery (IM&R), Unit, Grooming and/or Movement/Exercise. * Plan of Care - Michelle Blank RN - 02/16/2024 4:[address] [facility] Plan of Care Note Assessment: Sleep Plan: Patient will sleep > 5 hrs Subjective: Objective: Patient was observed sleeping comfortably during rounds. Respirations even and non labored. 15 minute checks ongoing. --- End of Report --- * Plan of Care - Dexter Lozano RN - 02/15/2024 11:00 PM CDT [facility] Note Group by: ProblemOutcome No care plan documentation found in the last 14 hours.Plan of Care Note Assessment: Mood Plan: Encourage pt to express feelings and frustrations Subjective: I came here before, I got was able to get go therapists and that helped. I just need that again Objective: Patient was visible and social on the unit with peers and staff. Pt reported depressive thoughts but appeared to be in a great mood. He reported needing more mental health resources to help him after discharge. He was cooperative with medication and had no other concern. --- End of Report --- * Plan of Care - Isacc Wan RN - 02/15/2024 4:56 PM CDT Pt arrived on the unit from the ED @ 1545. He was pleasant and cooperative in our interaction. He reiterated what brought him in (physical symptoms, i.e., abd pain and dizziness, leading to a brief period of SI). He reports the SI was ten seconds and he thought of using a gun to shoot himself, but reports, I have a lot of things coming up and people who care about me. Denied current SI and stated he could notify staff if that changed. Scored moderate risk level on Annada scale, however,provider has placed him at a low risk while in the hospital. Continued to c./o abd pain rated 7/10.Declined intervention stating nothing has helped but he did report he would like to try prilosec asthis has helped in the past. Reported sporadic dizziness and vertigo as well. Was encouraged to notify staff if he he felt unsteady. Encouraged getting up slowly. Has falls bracelet on and bed is in lowest position. Denied further needs/concerns. Care continued by assigned RN. * Plan of Care - Emerson Atwood, MercedesD - 02/15/2024 2:22 PM CDT [facility] Medication History Note *I spoke with the patient about the medications. The patient states that he stopped taking quetiapine because he did not like the way it made him feel* 1. Source(s) of Medication Information: Patient, , [facility] Everywhere 2. 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 The dose was increased from 50mg QHS to 75mg QHS at [facility] on 02/01/24) - The patient stopped taking quetiapine because he did not like the way that it made him feel. He did NOT want this medication added to his medication list 3. Outpatient Medications Marked as Taking: Outpatient Medications Marked as Taking for the 02/15/24 encounter (Hospital Encounter) Medication Sig Note Last Dose FLUoxetine (PROZAC) 10 MG capsule Take 1 Capsule (10 mg) by mouth daily. 02/14/2024 at pm oxyCODONE (ROXICODONE) 5 MG immediate release tablet Take 0.5-1 Tablets (2.5-5 mg) by mouth. Every 6 to 8 hours as needed 02/15/2024: Last filled on 02/08/24 for #20 As Directed-PRN sennosides-docusate sodium (SENOKOT S) 8.6-50 MG per tablet Take 1-4 Tablets by mouth two times daily as needed for Constipation. As Directed-PRN Thank you. This list represents the best possible medication history available at the time of note completion and should be used as a guide in reconciling home medications for hospital use. ? * Triage Assessment Note - Zoe Stephen RN - 02/15/2024 12:04 PM CDT Patient arrived via [facility] from a clinic in [place] after being seen there with SI with plan to use his own firearm from home. Per medics, patient has had abd pain and vertigo the last 3 weeks after having wisdom teeth removed, and was seen at an [facility] ER yesterday. Patient states began having intrusive thoughts and hearing voices telling him to end it patient a/ox4, RR regular and unlabored. Ambulatory with steady gait. Patient calm and cooperative. documented in this encounter Administered Medications Inactive Administered Medications - up to 3 most recent administrations Medication Order JAN Action Action Date Dose Rate Site bisacodyl (DULCOLAX) rectal suppository 10 mg 10 mg, Rectal, DAILY PRN, Constipation, No stool in the last 3 days, Starting on Wed02/15/24 at 1550, Until Wed02/17/24 at 1619, Cumulative bowel medication orders. Administer based on medications available on JAN. If no stool in last day start Senna BID PRN no stool, if no stool in last 2 days add Miralax DAILY PRN no stool, if no stool in last 3 days add bisacodyl suppository DAILY PRN until patient stools. When patient stools, stop giving PRN meds and continue monitoring for bowel activity. When no stools X 1 day, begin regimen again until patient stools. Do not give if Absolute Neutrophil Count (ANC) is 1 k/cmm or less OR platelet count is 50 k/cmm or less. clonazePAM (KlonoPIN) tablet 0.25 mg 0.25 mg, Oral, BID PRN, Anxiety, Starting on Wed02/16/24 at 1024, Until Wed02/17/24 at 1619, HAZARDOUS DRUG Preparation: Single glove Administration: If no touch, no PPE; if handling, single glove, Indications: Anxiety Given 02/17/2024 11:46 AM CDT 0.25 mg Given 02/16/2024 8:00 PM CDT 0.25 mg Given 02/16/2024 11:22 AM CDT 0.25 mg diclofenac (VOLTAREN) gel 2 g 2 g, Topical, BID PRN, Other, shoulder pain, Starting on Wed02/16/24 at 1724, Until Wed02/17/24 at 1619, Apply topically to (specify site) shoulder Hazardous waste disposal required. Given 02/16/2024 8:01 PM CDT 2 g Other (Comment) FLUoxetine (PROZAC) capsule 10 mg 10 mg, Oral, DAILY, First dose (after last modification) on Wed02/16/24 at 0900, Until Discontinued Given 02/17/2024 8:08 AM CDT 10 mg Given 02/16/2024 8:37 AM CDT 10 mg hydrOXYzine pamoate (VISTARIL) capsule 50 mg 50 mg, Oral, ONCE, On Wed02/15/24 at 2000, For 1 dose Given 02/15/2024 7:37 PM CDT 50 mg mirtazapine (REMERON) tablet 7.5 mg 7.5 mg, Oral, HS, First dose on Wed02/15/24 at 2100, Until Discontinued, Indications: insomnia Given 02/16/2024 9:18 PM CDT 7.5 mg Given 02/15/2024 8:43 PM CDT 7.[address] (PROTONIX) tablet 40 mg 40 mg, Oral, DAILY AT 0600, First dose on Wed02/15/24 at 1615, Until Discontinued, Tablet should be swallowed whole. Best when taken before a meal, but may be taken with food., Indications: Gastroesophageal Reflux Disease Given 02/17/2024 7:23 AM CDT 40 mg Given 02/16/2024 6:42 AM CDT 40 mg Given 02/15/2024 5:00 PM CDT 40 mg polyethylene glycol (MIRALAX) oral powder 17 g 17 g, Oral, DAILY PRN, Constipation, No stool in the last 2 days, Starting on Wed02/15/24 at 1550, Until Wed02/17/24 at 1619, Cumulative bowel medication orders. Administer based on medications available on JAN. If no stool in last day start Senna BID PRN no stool, if no stool in last 2 days add Miralax DAILY PRN no stool, if no stool in last 3 days add bisacodyl suppository DAILY PRN until patient stools. When patient stools, stop giving PRN meds and continue monitoring for bowel activity. When no stools X 1 day, begin regimen again until patient stools. senna (SENOKOT) tablet 2 Tablet 2 Tablet, Oral, BID PRN, Constipation, No stool in the last day, Starting on Wed02/15/24 at 1550, Until Wed02/17/24 at 1619, Cumulative bowel medication orders. Administer based on medications available on JAN. If no stool in last day start Senna BID PRN no stool, if no stool in last 2 days add Miralax DAILY PRN no stool, if no stool in last 3 days add bisacodyl suppository DAILY PRN until patient stools. When patient stools, stop giving PRN meds and continue monitoring for bowel activity. When no stools X 1 day, begin regimen again until patient stools. documented in this encounter Active and Recently Administered Medications Times are shown in CDT. Scheduled Medication Order 02/15/2024 02/16/2024 02/17/2024 FLUoxetine (PROZAC) capsule 10 mg 10 mg, Oral, DAILY, First dose (after last modification) on Wed02/16/24 at 0900, Until Discontinued 0837 (Given - Provider: Gloria Weiss RN) 0808 (Given - Provider: Wilson Dasilva RN) hydrOXYzine pamoate (VISTARIL) capsule 50 mg (COMPLETED) 50 mg, Oral, ONCE, On Wed02/15/24 at 2000, For 1 dose 193 (Given - Provider: Dexter Lozano RN) mirtazapine (REMERON) tablet 7.5 mg 7.5 mg, Oral, HS, First dose on Wed02/15/24 at 2100, Until Discontinued, Indications: insomnia 2042 (Given - Provider: Dexter Lozano RN) 211 (Given - Provider: Flo Cox RN) pantoprazole DR (PROTONIX) tablet 40 mg 40 mg, Oral, DAILY AT 0600, First dose on Wed02/15/24 at 1615, Until Discontinued, Tablet should be swallowed whole. Best when taken before a meal, but may be taken with food., Indications: Gastroesophageal Reflux Disease 1700 (Given - Provider: Dexter Lozano RN) 0642 (Given - Provider: Michelle Blank, LALITO) 0723 (Given - Provider: Khushboo Raza RN) PRN Medication Order 02/15/2024 02/16/2024 02/17/2024 acetaminophen (TYLENOL) tablet 650 mg 650 mg, Oral, Q6H PRN, Pain/Fever, Initially give acetaminophen for patient with mild pain., Starting on Wed02/15/24 at 1550, Until Wed02/17/24 at 1619, Initially give acetaminophen for patient with mild pain. Acetaminophen may be given WITH other pain medications as adjunct pain relief. Do not give two acetaminophen containing medications within 4 hours of each other. bisacodyl (DULCOLAX) rectal suppository 10 mg(Linked Group 1) 10 mg, Rectal, DAILY PRN, Constipation, No stool in the last 3 days, Starting on Wed02/15/24 at 1550, Until Wed02/17/24 at 1619, Cumulative bowel medication orders. Administer based on medications available on JAN. If no stool in last day start Senna BID PRN no stool, if no stool in last 2 days add Miralax DAILY PRN no stool, if no stool in last 3 days add bisacodyl suppository DAILY PRN until patient stools. When patient stools, stop giving PRN meds and continue monitoring for bowel activity. When no stools X 1 day, begin regimen again until patient stools. Do not give if Absolute Neutrophil Count (ANC) is 1 k/cmm or less OR platelet count is 50 k/cmm or less. calcium carbonate (TUMS) chewable tablet 1,000 mg 1,000 mg, Oral, Q4H PRN, Heartburn, Upset Stomach, Starting on Wed02/15/24 at 1550, Until Wed02/17/24 at 1619, For indigestion/upset stomach clonazePAM (KlonoPIN) tablet 0.25 mg 0.25 mg, Oral, BID PRN, Anxiety, Starting on Wed02/16/24 at 1024, Until Wed02/17/24 at 1619, HAZARDOUS DRUG Preparation: Single glove Administration: If no touch, no PPE; if handling, single glove, Indications: Anxiety 1122 (Given - Provider: Vicki Alexis RN)1999 (Given - Provider: Flo Cox RN) 1146 (Given - Provider: Daisha Billingsley RN) diclofenac (VOLTAREN) gel 2 g 2 g, Topical, BID PRN, Other, shoulder pain, Starting on Wed02/16/24 at 1724, Until Wed02/17/24 at 1619, Apply topically to (specify site) shoulder Hazardous waste disposal required. 2000 (Given - Provider: Flo Cox RN - Comment: Shoulder) ibuprofen (MOTRIN) tablet 400 mg 400 mg, Oral, Q6H PRN, Fever, Pain, Starting on Wed02/15/24 at 1550, Until Wed02/17/24 at 1619, Give with food or milk. polyethylene glycol (MIRALAX) oral powder 17 g(Linked Group 1) 17 g, Oral, DAILY PRN, Constipation, No stool in the last 2 days, Starting on Wed02/15/24 at 1550, Until Wed02/17/24 at 1619, Cumulative bowel medication orders. Administer based on medications available on JAN. If no stool in last day start Senna BID PRN no stool, if no stool in last 2 days add Miralax DAILY PRN no stool, if no stool in last 3 days add bisacodyl suppository DAILY PRN until patient stools. When patient stools, stop giving PRN meds and continue monitoring for bowel activity. When no stools X 1 day, begin regimen again until patient stools. senna (SENOKOT) tablet 2 Tablet(Linked Group 1) 2 Tablet, Oral, BID PRN, Constipation, No stool in the last day, Starting on Wed02/15/24 at 1550, Until Renetta 02/17/24 at 1619, Cumulative bowel medication orders. Administer based on medications available on JAN. If no stool in last day start Senna BID PRN no stool, if no stool in last 2 days add Miralax DAILY PRN no stool, if no stool in last 3 days add bisacodyl suppository DAILY PRN until patient stools. When patient stools, stop giving PRN meds and continue monitoring for bowel activity. When no stools X 1 day, begin regimen again until patient stools. Linked Groups Order Group 1: senna (SENOKOT) tablet 2 TabletJump to med 2 Tablet, Oral, BID PRN, Constipation, No stool in the last day, Starting on Wed02/15/24 at 1550, Until Wed02/17/24 at 1619, Cumulative bowel medication orders. Administer based on medications available on JAN. If no stool in last day start Senna BID PRN no stool, if no stool in last 2 days add Miralax DAILY PRN no stool, if no stool in last 3 days add bisacodyl suppository DAILY PRN until patient stools. When patient stools, stop giving PRN meds and continue monitoring for bowel activity. When no stools X 1 day, begin regimen again until patient stools. And polyethylene glycol (MIRALAX) oral powder 17 gJump to med 17 g, Oral, DAILY PRN, Constipation, No stool in the last 2 days, Starting on Wed02/15/24 at 1550, Until Renetta 02/17/24 at 1619, Cumulative bowel medication orders. Administer based on medications available on JAN. If no stool in last day start Senna BID PRN no stool, if no stool in last 2 days add Miralax DAILY PRN no stool, if no stool in last 3 days add bisacodyl suppository DAILY PRN until patient stools. When patient stools, stop giving PRN meds and continue monitoring for bowel activity. When no stools X 1 day, begin regimen again until patient stools. And bisacodyl (DULCOLAX) rectal suppository 10 mgJump to med 10 mg, Rectal, DAILY PRN, Constipation, No stool in the last 3 days, Starting on Wed02/15/24 at 1550, Until Renetta 02/17/24 at 1619, Cumulative bowel medication orders. Administer based on medications available on JAN. If no stool in last day start Senna BID PRN no stool, if no stool in last 2 days add Miralax DAILY PRN no stool, if no stool in last 3 days add bisacodyl suppository DAILY PRN until patient stools. When patient stools, stop giving PRN meds and continue monitoring for bowel activity. When no stools X 1 day, begin regimen again until patient stools. Do not give if Absolute Neutrophil Count (ANC) is 1 k/cmm or less OR platelet count is 50 k/cmm or less. documented in this encounter Care Teams Molder Feeder Relationship Specialty Start Date End Date Charbel Dominguez MD [address] [place] [address] PCP - General Family Practice 02/15/24 documented as of this encounter
--- OUTSIDE RECORDS SUMMARY | 2024-03-09 07:15 | XMS_ITS | Encounter Summary ---
Author Name Unknown Organization [facility] Address [address] [place] [id number] Care Team Providers Care Mammography Technician Name Role Phone No Ref-Primary, Physician Primary Care Provider Encounter Details Date Type Department Care Team (Latest Contact Info) Description 02/14/2024 Travel Social History Tobacco Use Types Packs/Day Years Used Date Smoking Tobacco: Never Smokeless Tobacco: Never Alcohol Use Standard Drinks/Week [...] on file documented as of this encounter Plan of Treatment Not on file documented as of this encounter Visit Diagnoses Not on filedocumented in this encounter Additional Health Concerns Assessment Noted Time PHQ-9 Depression Total Score: 3 12/06/19 20 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
--- OUTSIDE RECORDS SUMMARY | 2024-03-09 07:15 | XMS_ITS | Clinical Summary ---
Author Name Unknown Organization [facility] Address [address] [place] [id number] Care Team Providers Care Medical Grade Shoemaker Name Role Phone No Ref-Primary, Physician Primary Care Provider Allergies Active Allergy Reactions Criticality Noted Date Comments Amiodarone Other (See Comments) Medium 10/17/2018 Terrible pain, can't speak, burning pain Amitriptyline Other (See Comments) Medium 08/21/2015 syncope Hydrocodone Other (See Comments) Medium 06/20/2019 [place] high Melatonin Other (See Comments) Low 08/18/2019 Nightmares Metoprolol Dizziness Medium 08/21/2015 syncope Mirtazapine Medium 08/21/2015 Other reaction(s): Hallucinations Olanzapine Other (See Comments) Medium 06/13/2019 Trouble with eyes and body pain Medications Medication Sig Dispensed Refills Start Date End Date Status glucosamine-chondroit in 500-400 MG CAPS per capsule Take 1 capsule by mouth daily Active Multiple Vitamins-Minerals (MULTIVITAMIN & MINERAL PO) Take 1 tablet by mouth daily Active warfarin ANTICOAGULANT (COUMADIN) 4 MG tablet Take 8 mg by mouth daily Active clonazePAM (KLONOPIN) 0.5 MG tablet Take 0.5 mg by mouth 3 times daily as needed for anxiety Active Polyvinyl Alcohol-Povidone (CLEAR EYES NATURAL TEARS) 5-6 MG/ML SOLN Place 1 drop into both eyes 3 times daily as needed Active QUEtiapine (SEROQUEL) 50 MG tablet Take 50 mg by mouth PRN 08/21/2019 Active meclizine (ANTIVERT) 25 MG tablet Take 1 tablet (25 mg) by mouth 3 times daily as needed for dizziness 30 tablet 02/14/2024 Active Active Problems Problem Noted Date Diagnosed Date Major depressive disorder, recurrent episode, dre [place] 08/19/2019 Recurrent major depressive disorder (H24) 2017 Spinal stenosis of lumbar region 09/23/2018 Overview: Added automatically from request for surgery [id number] History of falling 08/31/2018 Anal fissure 07/13/2018 [...] Overview: Added automatically from request for surgery [id number] snf (current) use of opiate analgesic 07/2017 Overview: [...] disorder 06/16/2017 Overview: Has est care with [facility] Personal history of traumatic brain injury 04/02 [...] IMO Update 09/01 Gastroesophageal reflux disease 05/10/2008 Encounters Date Type Department Care Team Description 02/14/2024 11:01 AM CDT - 02/14/2024 2:12 PM CDT Emergency [facility] Emergency Dept [address] [place] [address] Gallo Wing MD Dizziness; Lightheadedness; Renal lesion Discharge Disposition: Home or Self Care 02/14/2024 Travel from Last 3 Months Immunizations Name Administration Dates Next Due DTAP [...] Sign Reading Time Taken Comments Blood Pressure 142/83 02/14/2024 1:49 PM CDT Pulse 72 02/14/2024 1:49 PM CDT Temperature 36.4 ??C (97.6 ??F) 02/14/2024 10:31 AM C DT Respiratory Rate 18 02/14/2024 1:49 PM CDT Oxygen Saturation 98% 02/14/2024 1:49 PM CDT Inhaled Oxygen Concentration - - Weight 101.2 kg (223 lb) 10/20/2019 1:29 PM TEMPLATE CHECKER Height 188 cm (6' 2) 10/20/2019 1:29 PM TEMPLATE CHECKER Body Mass Index 28.63 10/20/2019 1:29 PM TEMPLATE CHECKER Plan of Treatment Health Maintenance Due Date Last Done Comments ADVANCE CARE PLANNING 1950 ANNUAL REVIEW OF HM ORDERS [address] CT COLONOGRAPHY 1950 DEPRESSION ACTION PLAN 1950 FIT 1950 FLEX SIG 1950 sDNA (Cologuard) 1950 COLONOSCOPY 1960 COLORECTAL CANCER SCREENING 1960 HEPATITIS C SCREENING 1968 HEPATITIS A IMMUNIZATION (1 of 2 - Risk 2-dose series) 1969 LIPID 1990 ZOSTER IMMUNIZATION (1 of 2) 2000 RSV VACCINE ( & 60+) (1 - 1-dose 60+ series) 2010 MEDICARE ANNUAL WELLNESS VISIT 2015 PHQ-9 06/05/2020 12/06/2019, 11/2 07/2019, 09/14/2019 FALL RISK ASSESSMENT 08/16/2020 08/16/2019 COVID-19 Vaccine ( season) 2023 10/23/2021, 02/14/2021, 01/24/2021 GLUCOSE 02/13/2027 02/14/2024, 08/02/2019 DTAP/TDAP/TD IMMUNIZATION (5 - Td or Tdap) 11/26/2030 11/26/2020, 03/15/2020, 05/02/2010, Additional history exists Pneumococcal Vaccine: 65+ Years Completed 04/14/2021, 03/15/2020 INFLUENZA VACCINE Completed 09/08/2023, , 10/09/2021, Additional history exists HPV IMMUNIZATION Aged Out [...] on patient's age to complete this topic Procedures Procedure Name Priority Date/Time Associated Diagnosis Comments MRA NECK (CAROTIDS) W/O CONTRAST STAT 02/14/2024 1:16 PM CDT MRA BRAIN ([place]) W/O CONTRAST STAT 02/14/2024 1:16 PM CDT MR BRAIN W/O CONTRAST STAT 02/14/2024 1:[address] ABDOMEN PELVIS W CONTRAST STAT 02/14/2024 12:40 PM CDT ROUTINE UA WITH MICROSCOPIC REFLEX TO CULTURE STAT 02/14/2024 11:40 AM CDT LACTIC ACID WHOLE BLOOD STAT 02/14/2024 11:40 AM CDT EKG 12-LEAD, TRACING ONLY STAT 02/14/2024 10:46 AM CDT CBC WITH PLATELETS & DIFFERENTIAL STAT 02/14/2024 10:43 AM CDT LIPASE STAT 02/14/2024 10:43 AM CDT EXTRA RED TOP TUBE STAT 02/14/2024 10 :43 AM CDT EXTRA BLUE TOP TUBE STAT 02/14/2024 1 0:43 AM CDT CBC WITH PLATELETS AND DIFFERENTIAL STAT 02/14/2024 10:43 AM CDT TROPONIN T, HIGH SENSITIVITY STAT 02/14/2024 10:43 AM CDT EXTRA TUBE STAT 02/14/2024 10:43 AM CDT COMPREHENSIVE METABOLIC PANEL STAT 02/14/2024 10:43 AM CDT from Last 3 Months Results * MRA Angiogram Neck w/o Contrast (02/14/2024 1:16 PM CDT) Anatomical Region Laterality Modality Neck, Vascular, C-spine, SUB RAD MR NEURO, UMP MR NEURO, RAD MR Magnetic Resonance Impressions 02/14/2024 1:28 PM CDT IMPRESSION: ??Normal MR angiogram of the neck. ?? RENATO HILARIO MD SYSTEM ID: ??[id number] Narrative 02/14/2024 1:28 PM CDT MRA NECK WITHOUT CONTRAST ??02/14/2024 1:16 PM HISTORY: dizziness x 24 hours, history of a fib, eval stroke TECHNIQUE: 2D [id number] MR angiogram of the neck without contrast. Estimates of carotid stenoses are made relative to the distal internal carotid artery diameters except as noted. COMPARISON: None. FINDINGS: ?? Normal origin of the great vessels from the aortic arch. Right carotid artery: The right common and internal carotid arteries are patent. No significant stenosis. ?? Left carotid artery: The left common and internal carotid arteries are patent. No significant stenosis. ?? Vertebral arteries: Vertebral arteries appear patent without evidence of dissection. No significant stenosis. ?? Procedure Note Renato Hilario MD - 02/14/2024 MRA NECK WITHOUT CONTRAST 02/14/2024 1:16 PM HISTORY: dizziness x 24 hours, history of a fib, eval stroke TECHNIQUE: 2D [id number] MR angiogram of the neck without contrast. Estimates of carotid stenoses are made relative to the distal internal carotid artery diameters except as noted. COMPARISON: None. FINDINGS: Normal origin of the great vessels from the aortic arch. Right carotid artery: The right common and internal carotid arteries are patent. No significant stenosis. Left carotid artery: The left common and internal carotid arteries are patent. No significant stenosis. Vertebral arteries: Vertebral arteries appear patent without evidence of dissection. No significant stenosis. IMPRESSION: Normal MR angiogram of the neck. RENATO HILARIO MD SYSTEM ID: [id number] Gallo J Salay MD [facility] [place] * MRA Angiogram Head w/o Contrast (02/14/2024 1:16 PM CDT) Anatomical Region Laterality Modality Head, SUBRAD MR NEURO, UMP MR NEURO, RAD MR Magnetic Resonance Impressions 02/14/2024 1:28 PM CDT IMPRESSION: Unremarkable MRA of the head. RENATO HILARIO MD SYSTEM ID: ??[id number] Narrative 02/14/2024 1:28 PM CDT MR ANGIOGRAM OF THE HEAD WITHOUT CONTRAST ?? 02/14/2024 1:16 PM HISTORY: dizziness x 24 hours, history of a fib, eval stroke TECHNIQUE: ??3D [id number] MR angiogram of the head without contrast. COMPARISON: None. FINDINGS: type origin of the right BILLING ADMINISTRATOR. The anterior and middle cerebral arterial distributions are unremarkable. The petrous and cavernous segments of the internal carotid arteries are unremarkable. The basilar artery is patent. The intracranial vertebral arteries are unremarkable. Procedure Note Renato Hilario MD - 02/14/2024 MR ANGIOGRAM OF THE HEAD WITHOUT CONTRAST 02/14/2024 1:16 PM HISTORY: dizziness x 24 hours, history of a fib, eval stroke TECHNIQUE: 3D [id number] MR angiogram of the head without contrast. COMPARISON: None. FINDINGS: type origin of the right BILLING ADMINISTRATOR. The anterior and middle cerebral arterial distributions are unremarkable. The petrous and cavernous segments of the internal carotid arteries are unremarkable. The basilar artery is patent. The intracranial vertebral arteries are unremarkable. IMPRESSION: Unremarkable MRA of the head. RENATO HILARIO MD SYSTEM ID: [id number] Gallo Wing MD [facility] [place] * MR Brain w/o Contrast (02/14/2024 1:15 PM CDT) Anatomical Region Laterality Modality Head, SUBRAD MR NEURO, UMP MR NEURO, RAD MR Magnetic Resonance Impressions 02/14/2024 1:26 PM CDT IMPRESSION: No restricted diffusion to suggest acute ischemia. RENATO HILARIO MD SYSTEM ID: ??[id number] Narrative 02/14/2024 1:26 PM CDT MRI BRAIN WITHOUT CONTRAST ??02/14/2024 1:15 PM HISTORY: ??dizziness x 24 hours, history of a fib, eval stroke TECHNIQUE: ??Multiplanar, multisequence MRI of the brain without gadolinium IV contrast material. ?? COMPARISON: ??None. FINDINGS: Minimal chronic small vessel ischemic changes. Midline omental anatomy is unremarkable. No restricted diffusion to suggest acute ischemia. Major vascular flow voids are unremarkable. No acute intracranial hemorrhage. No hydrocephalus or extra-axial hemorrhage. No gradient imaging obtained. Orbits, paranasal sinuses and mastoid air cells are unremarkable. Procedure Note Renato Hilario MD - 02/14/2024 MRI BRAIN WITHOUT CONTRAST 02/14/2024 1:15 PM HISTORY: dizziness x 24 hours, history of a fib, eval stroke TECHNIQUE: Multiplanar, multisequence MRI of the brain without gadolinium IV contrast material. COMPARISON: None. FINDINGS: Minimal chronic small vessel ischemic changes. Midline omental anatomy is unremarkable. No restricted diffusion to suggest acute ischemia. Major vascular flow voids are unremarkable. No acute intracranial hemorrhage. No hydrocephalus or extra-axial hemorrhage. No gradient imaging obtained. Orbits, paranasal sinuses and mastoid air cells are unremarkable. IMPRESSION: No restricted diffusion to suggest acute ischemia. RENATO HILARIO MD SYSTEM ID: [id number] Gallo Wing MD IMG MRI ORDERABLES * CT Abdomen Pelvis w Contrast (02/14/2024 12:40 PM CDT) Anatomical Region Laterality Modality Abdomen/Pelvis, SUBRAD CT ANTHONY DY, UMP CT ABDOMEN PELVIS, RAD CT Computed Tomography Impressions 02/14/2024 4:03 PM CDT IMPRESSION: 1. ??There are indeterminate renal lesions bilaterally, measuring 2 cm on the right and 2.2 cm on the left; solid renal neoplasm such as renal cell carcinoma cannot be excluded. Renal mass protocol MRI is recommended for further characterization. 2. ??Small bladder diverticulum posteriorly on the left measures 2.1 cm. FLO LOVE MD SYSTEM ID: ??[id number] Narrative 02/14/2024 4:[address] ABDOMEN/PELVIS WITH CONTRAST February 14, 2024 12:40 PM CLINICAL HISTORY: Mid and upper abdominal pain. TECHNIQUE: CT scan of the abdomen and pelvis was performed following injection of IV contrast. Multiplanar reformats were obtained. Dose reduction techniques were used. CONTRAST: 100mL [id number]. COMPARISON: None. FINDINGS: LOWER CHEST: Unremarkable. HEPATOBILIARY: Cholecystectomy. No hepatic masses. PANCREAS: Normal. SPLEEN: Normal. ADRENAL GLANDS: Normal. KIDNEYS/BLADDER: There is an indeterminate 2 cm slightly hypoenhancing nodule in the interpolar region of the right kidney anteriorly (series 3 image 101). A 2.2 cm exophytic lesion in the interpolar region of the left kidney posteriorly is of higher density than simple fluid, also indeterminate. A 2.1 cm bladder diverticulum is noted posteriorly on the left. No hydronephrosis. BOWEL: No bowel obstruction. No evidence for colitis or diverticulitis. Unremarkable appendix. LYMPH NODES: No lymphadenopathy. VASCULATURE: Unremarkable. PELVIC ORGANS: Unremarkable. ADDITIONAL FINDINGS: None. MUSCULOSKELETAL: Degenerative changes in the thoracolumbar spine. Postoperative changes of posterior boom and pedicle screw fusion at L2-L4. There is mild age-indeterminate compression of the L1 vertebral body. Left hip arthroplasty. Procedure Note Flo Love MD - 02/14/2024 CT ABDOMEN/PELVIS WITH CONTRAST February 14, 2024 12:40 PM CLINICAL HISTORY: Mid and upper abdominal pain. TECHNIQUE: CT scan of the abdomen and pelvis was performed following injection of IV contrast. Multiplanar reformats were obtained. Dose reduction techniques were used. CONTRAST: 100mL Isovue-370. COMPARISON: None. FINDINGS: LOWER CHEST: Unremarkable. HEPATOBILIARY: Cholecystectomy. No hepatic masses. PANCREAS: Normal. SPLEEN: Normal. ADRENAL GLANDS: Normal. KIDNEYS/BLADDER: There is an indeterminate 2 cm slightly hypoenhancing nodule in the interpolar region of the right kidney anteriorly (series 3 image 101). A 2.2 cm exophytic lesion in the interpolar region of the left kidney posteriorly is of higher density than simple fluid, also indeterminate. A 2.1 cm bladder diverticulum is noted posteriorly on the left. No hydronephrosis. BOWEL: No bowel obstruction. No evidence for colitis or diverticulitis. Unremarkable appendix. LYMPH NODES: No lymphadenopathy. VASCULATURE: Unremarkable. PELVIC ORGANS: Unremarkable. ADDITIONAL FINDINGS: None. MUSCULOSKELETAL: Degenerative changes in the thoracolumbar spine. Postoperative changes of posterior boom and pedicle screw fusion at L2-L4. There is mild age-indeterminate compression of the L1 vertebral body. Left hip arthroplasty. IMPRESSION: 1. There are indeterminate renal lesions bilaterally, measuring 2 cm on the right and 2.2 cm on the left; solid renal neoplasm such as renal cell carcinoma cannot be excluded. Renal mass protocol MRI is recommended for further characterization. 2. Small bladder diverticulum posteriorly on the left measures 2.1 cm. FLO LOVE MD SYSTEM ID: [id number] Gallo Wing MD IMG CT ORDERABLES * (ABNORMAL) UA with Microscopic reflex to Culture (02/14/2024 11:40 AM CDT) Color Urine Yellow Colorless, Straw, Light Yellow, Yellow 02/14/2024 12:02 PM CDT [facility] Appearance Urine Clear Clear 02/14/20 24 12:02 PM CDT [facility] Glucose Urine Negative Negative mg/dL 02/14/2024 12:02 PM CDT [facility] Bilirubin Urine Negative Negative 12:02 PM CDT LABORATORY Ketones Urine 10(A) Negative mg/dL 02/14/2024 12:02 PM CDT [facility] Specific [place] Urine 1.019 1.003 - 1.035 02/14/2024 12:02 PM CDT [facility] Blood Urine Negative Negative 02/14/2024 12:02 PM CDT LABORATORY pH Urine 8.0(H) 5.0 - 7.0 02/14/2024 12:02 PM CDT [facility] Protein Albumin Urine 10(A) Negative mg/dL 02/14/2024 12:02 PM CDT [facility] Urobilinogen Urine Normal Normal, 2.0 mg/dL 02/14/2024 12:02 PM CDT [facility] Nitrite Urine Negative Negative 02/14/2024 12:02 PM CDT [facility] Leukocyte Esterase Urine Negative Negative 02/14/2024 12:02 PM CDT [facility] Mucus Urine Present(A) None Seen /LPF 02/14/2024 12:02 PM CDT [facility] RBC Urine <1 <=2 /HPF 02/14/2024 12:02 PM CDT [facility] WBC Urine 1 <=5 /HPF 02/14/2024 12:02 PM CDT LABORATORY Hyaline Casts Urine 1 <=2 /LPF 02/14/2024 12:02 PM CDT LABORATORY Urine URINE SPECIMEN OBTAINED BY CLEAN CATCH PROCEDURE / Unknown Non-blood Collection / Unknown 02/14/2024 11:40 AM CDT 02/14/2024 11:47 AM CDT Narrative LABORATORY - 02/14/2024 12:02 PM CDT Urine Culture not indicated Gallo Wing MD LAB - URINE ORDERABL ES [facility] [address] Lab (1st floor, no room number) [place] [phone] [place] [address] * Lactic acid whole blood (02/14/2024 11:40 AM CDT) Lactic Acid 1.4 0.7 - 2.0 mmol/L 02/14/2024 11:53 AM CDT LABORATORY Blood BLOOD SPECIMEN / Unknown Venipuncture / Unknown 02/14/2024 11:40 AM CDT 02/14/2024 11:48 AM CDT Gallo Wing MD LAB - BLOOD ORDERABL ES [facility] [address] Lab (1st floor, no room number) [place] [phone] [place] [address] * EKG 12-lead, tracing only (02/14/2024 10:46 AM CDT) Systolic Blood Pressure mmHg RADIOLOGY RESULTS Diastolic Blood Pressure mmHg RADIOLOGY RESULTS Ventricular Rate 67 BPM RAD IOLOGY RESULTS Atrial Rate 67 BPM RADIOLOG Y RESULTS MI Interval 170 ms RADIOLOG Y RESULTS QRS Duration 92 ms RADIOLO GY RESULTS QT 402 ms RADIOLOGY RESULTS QTc 424 ms RADIOLOGY RESULTS P [place] 70 degrees RADIOLOGY RESULTS R AXIS 3 degrees RADIOLOGY RESULTS T [place] 29 degrees RADIOLOGY RESULTS Interpretation ECG Sinus rhythm Normal ECG When compared with ECG of 02-AUG-2019 17:21, No significant change was found Unconfirmed report - interpretation of this ECG is computer generated - see medical record for final interpretation Confirmed by - EMERGENCY ROOM, PHYSICIAN ([id number]), supervising film or videotape editor Homero Lara ([id number]) on 02/14/2024 10:52:10 AM RADIOLOGY RESULTS 02/14/2024 10:4 6 AM CDT 02/14/2024 10:52 AM CDT Gallo Wing MD ECG ORDERABLES Performing Organization Address City/[facility]/ZIP Co de Phone Number RADIOLOGY RESULTS * Extra Red Top Tube (02/14/2024 10:43 AM CDT) Hold Specimen [facility] 02/14/2024 12:08 PM CDT [facility] Blood STRUCTURE OF LEFT UPPER LIMB / Unknown Venipuncture / Unknown 02/14/2024 10:43 AM CDT 02/14/2024 10:53 AM CDT Gallo Wing MD LAB - BLOOD ORDERABL ES Performing Organization Address [facility] Co de Phone Number [facility] [address] Lab (1st floor, no room number) [address] * Extra Blue Top Tube (02/14/2024 10:43 AM CDT) Hold Specimen [facility] 02/14/2024 12:08 PM CDT LABORATORY Blood STRUCTURE OF LEFT UPPER LIMB / Unknown Venipuncture / Unknown 02/14/2024 10:43 AM CDT 02/14/2024 10:53 AM CDT Gallo Wing MD LAB - BLOOD ORDERABL ES Performing Organization Address [facility] Co de Phone Number [facility] [address] Lab (1st floor, no room number) [address] * CBC with platelets and differential (02/14/2024 10:43 AM CDT) WBC Count 5.9 4.0 - 11.0 10e3/uL 02/14/2024 10:57 AM CDT [facility] RBC Count 5.07 4.40 - 5.90 10e6/uL 02/14/2024 10:57 AM CDT [facility] Hemoglobin 15.0 13.3 - 17.7 g/dL 02/14/2024 10:57 AM CDT [facility] Hematocrit 44.8 40.0 - 53.0 % 02/14/2024 10:57 AM CDT [facility] MCV 88 78 - 100 fL 02/14/2024 10:57 AM CDT [facility] MCH 29.6 26.5 - 33.0 pg 02/14/2024 10:57 AM CDT [facility] MCHC 33.5 31.5 - 36.5 g/dL 02/14/2024 10:57 AM CDT [facility] RDW 12.5 10.0 - 15.0 % 02/14/2024 10:57 AM CDT [facility] Platelet Count 259 150 - 450 10e3/uL 02/14/2024 10:57 AM CDT [facility] % Neutrophils 65 % 02/14/2024 10:57 AM CDT [facility] % Lymphocytes 24 % 02/14/2024 10:57 AM CDT [facility] % Monocytes 9 % 02/14/2024 10:57 AM CDT [facility] % Eosinophils 2 % 02/14/2024 10:57 AM CDT [facility] % Basophils 0 % 02/14/2024 10:57 AM CDT [facility] % Immature Granulocytes 0 % 02/14/2024 10:57 AM CDT [facility] NRBCs per 100 WBC 0 <1 /100 024 10:57 AM CDT [facility] Absolute Neutrophils 3.8 1.6 - 8.3 10e3/uL 02/14/2024 10:57 AM CDT [facility] Absolute Lymphocytes 1.4 0.8 - 5.3 10e3/uL 02/14/2024 10:57 AM CDT [facility] Absolute Monocytes 0.5 0.0 - 1.3 10e3/uL 02/14/2024 10:57 AM CDT [facility] Absolute Eosinophils 0.1 0.0 - 0.7 10e3/uL 02/14/2024 10:57 AM CDT [facility] Absolute Basophils 0.0 0.0 - 0.2 10e3/uL 02/14/2024 10:57 AM CDT [facility] Absolute Immature Granulocytes 0.0 <=0.4 10e3/uL 02/14/2024 10:57 AM CDT [facility] Absolute NRBCs 0.0 10e3/uL 02/14/2024 10:57 AM CDT [facility] Blood STRUCTURE OF LEFT UPPER LIMB / Unknown Venipuncture / Unknown 02/14/2024 10:43 AM CDT 02/14/2024 10:53 AM CDT Gallo Wing MD LAB - BLOOD ORDERABL ES Performing Organization Address City/[facility]/ZIP Co de Phone Number [facility] [address] Lab (1st floor, no room number) [place] [phone] * Troponin T, High Sensitivity (02/14/2024 10:43 AM CDT) [facility] Troponin T, High Sensitivity 17 <=22 ng/L 02/14/2024 11:15 AM CDT [facility] Comment: Either a High Sensitivity Troponin T baseline (0 hours) value = 100 ng/L, or an increase in High Sensitivity Troponin T = 7 ng/L at 2 hours compared to 0 hours (2-0 hours), suggests myocardial injury, and urgent clinical attention is required. ?? If the 2-0 hours increase is <7 ng/L, a High Sensitivity Troponin T result above gender-specific reference ranges warrants further evaluation. Recommendations for further evaluation include correlation with clinical decision-making tool (e.g., HEART), a 3rd High Sensitivity Troponin T test 2 hours after the 2nd (a 20% change from baseline would represent concern), admission for observation, close PCC/cardiology follow-up, or urgent outpatient provocative testing. Blood STRUCTURE OF LEFT UPPER LIMB / Unknown Venipuncture / Unknown 02/14/2024 10:43 AM CDT 02/14/2024 10:53 AM CDT Gallo Wing MD LAB - BLOOD ORDERABL ES [facility] [address] Lab (1st floor, no room number) [place] [phone] * Lipase (02/14/2024 10:43 AM CDT) Lipase 21 13 - 60 U/L 02/14/2024 11:51 AM CDT [facility] Blood STRUCTURE OF LEFT UPPER LIMB / Unknown Venipuncture / Unknown 02/14/2024 10:43 AM CDT 02/14/2024 10:53 AM CDT Gallo Wing MD LAB - BLOOD ORDERABL ES LABORATORY [facility] [address] Lab (1st floor, no room number) [place] [phone] * Comprehensive metabolic panel (02/14/2024 10:43 AM CDT) Sodium 139 135 - 145 mmol/L 02/14/2024 11:15 AM CDT LABORATORY Comment:Reference intervals for this test were updated on 08/17/2023 to more accurately reflect our healthy population. There may be differences in the flagging of prior results with similar values performed with this method. Interpretation of those prior results can be made in the context of the updated reference intervals. Potassium 4.3 3.4 - 5.3 mmol/L 02/14/2024 11:15 AM CDT LABORATORY Carbon Dioxide (CO2) 26 22 - 29 mmol/L 02/14/2024 11:15 AM CDT LABORATORY Anion Gap 12 7 - 15 mmol/L 02/14/2024 11:15 AM CDT [facility] Urea Nitrogen 17.1 8.0 - 23.0 mg/dL 02/14/2024 11:15 AM CDT [facility] Creatinine 0.99 0.67 - 1.17 mg/dL 02/14/2024 11:15 AM CDT [facility] GFR Estimate 80 >60 mL/min/1. 73m2 02/14/2024 11:15 AM CDT [facility] Calcium 9.8 8.8 - 10.2 mg/dL 02/14/2024 11:15 AM CDT LABORATORY Chloride 101 98 - 107 mmol/L 02/14/2024 11:15 AM CDT [facility] Glucose 95 70 - 99 mg/dL 02/14/2024 11:15 AM CDT [facility] Alkaline Phosphatase 92 40 - 150 U/L 02/14/2024 11:15 AM CDT [facility] Comment:Reference intervals for this test were updated on 10/05/2023 to more accurately reflect our healthy population. There may be differences in the flagging of prior results with similar values performed with this method. Interpretation of those prior results can be made in the context of the updated reference intervals. AST 17 0 - 45 U/L 02/14/2024 11:15 AM CDT [facility] Comment:Reference intervals for this test were updated on 05/03/2023 to more accurately reflect our healthy population. There may be differences in the flagging of prior results with similar values performed with this method. Interpretation of those prior results can be made in the context of the updated reference intervals. ALT 17 0 - 70 U/L 02/14/2024 11:15 AM CDT [facility] Comment:Reference intervals for this test were updated on 05/03/2023 to more accurately reflect our healthy population. There may be differences in the flagging of prior results with similar values performed with this method. Interpretation of those prior results can be made in the context of the updated reference intervals. Protein Total 7.3 6.4 - 8.3 g/dL 02/14/2024 11:15 AM CDT [facility] Albumin 4.5 3.5 - 5.2 g/dL 02/14/2024 11:15 AM CDT [facility] Bilirubin Total 0.6 <=1.2 mg/dL 02/14/2024 11:15 AM CDT [facility] Blood STRUCTURE OF LEFT UPPER LIMB / Unknown Venipuncture / Unknown 02/14/2024 10:43 AM CDT 02/14/2024 10:53 AM CDT Gallo Wing MD LAB - BLOOD ORDERABL ES [facility] [address] [facility] (1st floor, no room number) [place] [address], [facility] from Last 3 Months Advance Directives For more information, please contact: [phone] * Full Code (Latest Code Status on File) Date Activated Date Inactivated Comments 08/03/2019 1:22 PM 02/14/2024 10:28 AM Question Answer Comments Code status determined by: Discussion with jenn schmitt/legal decision maker * Full Code Date Activated Date Inactivated Comments 08/02/2019 5:13 PM 08/03/2019 1:22 PM Question Answer Comments Code status determined by: Discussion with jenn schmitt/legal decision maker Care Teams Medical Grade Shoemaker Relationship Specialty Start Date End Date No Ref-Primary, Physician PCP - General 10/23/19
--- OUTSIDE RECORDS SUMMARY | 2024-03-09 07:15 | XMS_ITS | Continuity of Care Document ---
Author Name Unknown Organization [facility] Address [address] [place] [address] Phone Care Team Providers Care Inspector Assembly Name Role Phone Will MD ARRIAZA, Ford [...] 5 mg tablet Take 5-10 mg by [facility] every 4 (four) hours as needed. - [...] Diagnoses Date Provider Providers Copied on Encounter [facility], [address] [place], [id number] , [place] tel: [phone] [facility] Emily No Information 2 Will Ford. [address] [place], [id number] , [place]. tel: [phone] OFFICE/OUTPA TIENT VISIT, EST [facility], [address] [place], [id number] , [place] tel: [phone] [facility] Back Pain (chief complaint) Trochanteric bursitis, left hipLong term (current) use of opiate analgesicPostlamin ectomy syndrome, not elsewhere classifiedPain in right shoulderBilateral primary osteoarthritis of kneePain in left shoulder 1 Ingram Hugo. [employer], [address], [place], [address], [place]. tel: [phone] Referring Provider: [facility] [address], [place], [address]. tel:[phone] [facility], [address] [place] [address] [place], [id number] , [place] tel: [phone] [facility] Pain in left shoulder 0 Will Ford. [address] [place], [id number] , [place]. tel: [phone] OFFICE/OUTPA TIENT VISIT, EST [facility], [address] [place], [id number] , [place] tel: [phone] [facility] Emily Back Pain (chief complaint) Trochanteric bursitis, left hipLong term (current) use of opiate analgesicPostlamin ectomy syndrome, not elsewhere classifiedPain in right shoulderBilateral primary osteoarthritis of kneePain in left shoulder 0 Ingram Hugo. [employer], [address], [place], [address], [place]. tel: [phone] Referring Provider: Charbel Dominguez, [facility] [address], [place], [address]. tel:[phone] OFFICE/OUTPA TIENT VISIT, NEW [facility], [address] [place], [id number] , [place] tel:[phone] [facility] [place] Back Pain (chief complaint) Postlaminectomy syndrome, not elsewhere classifiedPain in right shoulderBilateral primary osteoarthritis of kneeEncounter for screening for other disorderTrochanter ic bursitis, left hipLong term (current) use of opiate analgesic Sep-2 0 Juan Jose Arias. [facility], [address], [place], [address], [place]. tel:[phone] Referring Provider: Charbel Dominguez [facility] [address], [place], [address]. tel:[phone] Family History Family Member Type Diagnosis Age At Onset No Information Payers Payer name Insurance type Covered democrat ID Authoriza tion(s) [employer] To 16 [id number] Social History Type Description Quantity Date Captured [...] most bothersome. He reports shoulder injections at [facility] (Dr. Anand Bahena) and [facility] around 2.5 years ago with moderate relief. His left hip pain has improved. He continues to use oxycodone through his PCP and tries to take it as little as possible. Reports current medication regimen provides 45% pain relief and allows increased functionality. Denies side effects from current medication regimen. No other concerns today. Back Pain (comments) Mr. Yoshi kirkpatrick presents [...] has plans to start PT after the hol season for general strengthening. He inquires about neuromodulation for the shoulder and back. No other concerns today. Past Treatments: Right shoulder injxns, LESI's, L2-4 fusion, Left IOANA.Current Treatments: 5 mg oxycodone max 1/day, managed by his PCP. Back Pain Severity level i s 5. [...] shoulder, back, and knee pain. Referred to [facility] by Charbel Shepherd MD. Overall, his pains [...] being compliant with rehab initially. Referred to [facility] for reasons unbeknownst to him but is [...] 1/day (30 tabs lasts about 45 days) Back Pain Severity level i s 4. [...] pain meds/drugs, physical therapy, stretching and walking. Functional Status Date Functional Assessmen t No Information Instructions Date Instruction Additional Infor mation No Information Assessments Type Assessment Date No Information Patient Care Teams Name Effective Dates (start - stop) Status Members No Information
--- OUTSIDE RECORDS SUMMARY | 2024-03-09 07:15 | XMS_ITS | Encounter Summary ---
Author Name Unknown Organization [facility] Address [facility] [place] [address] Care Team Providers Care Clinical Manager Home Care Name Role Phone No Ref-Primary, Physician Primary Care Provider Reason for Referral * Rehab Therapy Physical Therapy (Routine: Next available opening) - Pending Review Specialty Diagnoses / Procedures Referred By Contac t Referred To Contact Diagnoses Gallo Benites MD Referral ID Status Reason Start Date Expiration Date V isits Requested Visits Authorized [id number] Pending Review 02/14/2024 02/13/2025 1 1 Question Answer Course of Action: Evaluation and Treatment Specialty Services: Vestibular (PT or OT) Scheduling Instructions: [facility] will call you to coordinate your care as prescribed by your provider. If you don't hear from a financial sales representative within 2 business days, please call . Comments Please be aware that coverage of these services is subject to the terms and limitations of your health insurance plan. Call member services at your health plan with any benefit or coverage questions. [facility] will call you to coordinate your care as prescribed by your provider. If you don't hear from a financial sales representative within 2 business days, please call . Reason for Visit * Reason Comments Headache Encounter Details Date Type Department Care Team (Late st Contact Info) Description 02/14/2024 11:01 AM CDT - 02/14/2024 2:12 PM CDT Emergency [facility] Emergency Dept [address] [place] [address] Gallo Wing MD [facility] [address] [place], [place] [address] Dizziness; Lightheadedness; Renal lesion Discharge Disposition: Home or Self Care Social History Tobacco Use Types Packs/Day Years [...] CDT Inhaled Oxygen Concentration - - Weight - - Height - - Body Mass Index - - documented in this encounter Discharge Instructions * Discharge Instructions* Gallo Wing MD - 02/14/2024 2:03 PM CDT You need to follow-up with your primary care physician for all of your symptoms and for the indeterminate lesions on your kidney for further evaluation. Discharge Instructions Dizziness (Lightheaded) Today you were seen for dizziness. Dizziness can be caused by many things and it can be very difficult to determine the cause of dizziness. At this time, your provider has found no signs that your dizziness is due to a serious or life- threatening condition. However, sometimes there is a serious problem that does not show up right away, and it is important for you to follow up with your regular provider as instructed. Generally, every Emergency Department visit should have a follow-up clinic visit with either a primary or a specialty clinic/provider. Please follow-up as instructed by your emergency provider today. Return to the Emergency Department if: You pass out (fainting or falling out), especially during exercise. You develop chest pain, chest pressure or difficulty breathing. Your feel an irregular heartbeat. You have excessive vaginal bleeding, or blood in your stool or vomit (throw up). You have a high fever. Your symptoms get worse or more frequent. If when you begin to feel dizzy or lightheaded, it is important to sit down or lay down immediatelyto prevent injury from falling. If you were given a prescription for medicine here today, be sure to read all of the information (including the package insert) that comes with your prescription. This will include important information about the medicine, its side effects, and any warnings that you need to know about. The pharmacist who fills the prescription can provide more information and answer questions you may have about the medicine. If you have questions or concerns that the pharmacist cannot address, please call or return to the Emergency Department. Remember that you can always come back to the Emergency Department if you are not able to see your regular provider in the amount of time listed above, if you get any new symptoms, or if there is anything that worries you. Discharge Instructions Vertigo You have been diagnosed with vertigo. This is a dizzy feeling often described as spinning or that the room is moving around you. You will often have nausea (sick to your stomach), vomiting (throwing up), and balance problems with it. Vertigo is usually caused by a problem in the inner ear which helps control your balance. Many things can cause vertigo, including calcium collections in the inner ear, a virus infection of the inner ear, concussion, migraine, and some medicines. Luckily, these causes are not life threatening and will eventually go away. However, sometimes there is a serious problem that does not show up right away. Generally, every Emergency Department visit should have a follow-up clinic visit with either a primary or a specialty clinic/provider. Please follow-up as instructed by your emergency provider today. Return to the Emergency Department if you have: New or severe headache. Double vision (seeing two of things). Trouble speaking or hearing. Weakness or trouble moving/using one side of your body. Passing out. Numbness or tingling. Chest pain. Vomiting that will not stop. Treatment: There are several commonly prescribed medications: Antihistamines such as meclizine (Antivert??), dimenhydrinate (Dramamine??), or diphenhydramine (Benadryl??). Prescription anti-nausea medicines, such as promethazine (Phenergan??), metoclopramide (Reglan??), or ondansetron (Zofran??). Prescription sedative medicines, such as diazepam (Valium??), lorazepam (Ativan??), or clonazepam (Klonopin??). Most of these medicines make you sleepy, and you should not take them before you work or drive. Youshould only take prescription medicines to treat severe vertigo symptoms, and you should stop the medicine when your symptoms improve. Follow Up: If you have vertigo longer than three days, it is important that you follow up either with your primary provider or an Ear, Nose, and Throat (ENT) specialist. You may need further testing to evaluateyour vertigo and you may also need ???vestibular?? therapy which is a special form of physical therapy to make the vertigo go away. If you were given a prescription for medicine here today, be sure to read all of the information (including the package insert) that comes with your prescription. This will include important information about the medicine, its side effects, and any warnings that you need to know about. The pharmacist who fills the prescription can provide more information and answer questions you may have about the medicine. If you have questions or concerns that the pharmacist cannot address, please call or return to the Emergency Department. Remember that you can always come back to the Emergency Department if you are not able to see your regular provider in the amount of time listed above, if you get any new symptoms, or if there is anything that worries you. documented in this encounter Medications at Time of Discharge Medication Sig Dispensed Refills Start Date End Date meclizine (ANTIVERT) 25 MG tablet Take 1 tablet (25 mg) by mouth 3 times daily as needed for dizziness 30 tablet 02/14/2024 clonazePAM (KLONOPIN) 0.5 MG tablet Take 0.5 mg by mouth 3 times daily as needed for anxiety glucosamine-chondroitin 500-400 MG CAPS per capsule Take 1 capsule by mouth daily Multiple Vitamins-Minerals (MULTIVITAMIN & MINERAL PO) Take 1 tablet by mouth daily Polyvinyl Alcohol-Povidone (CLEAR EYES NATURAL TEARS) 5-6 MG/ML SOLN Place 1 drop into both eyes 3 times daily as needed warfarin ANTICOAGULANT (COUMADIN) 4 MG tablet Take 8 mg by mouth daily documented as of this encounter ED Notes * Dony Saldaña RN - 02/14/2024 10:29 AM CDT Syncopal episode yesterday morning. Hx of a-fib and ablations. Since yesterday, has had a headache,feels difficulty thinking. Abdominal pain. Denies N/V/D. * Gallo Wing MD - 02/14/2024 10:27 AM CDT History Chief Complaint: Dizziness HPI Yoshi Almaraz is a 73 year old male who presents for evaluation of dizziness. Yesterday morning, he stood up and immediately felt a room-spinning sensation and fell back into his couch. He believes he briefly lost consciousness for a couple of seconds. This episode is similar to an episode 10 years ago when he went into a-fib. He went about his day and has been dizzy throughout the day, causing him to feel off-balance. Today, his symptoms persisted, prompting concern to come to the ED. He has been eating 3 meals a day, but admits to not drinking enough fluids. Here, he is experiencing a headache. He denies palpitations, vision changes, focal weakness, knee pain, speech difficulty, nausea, vomiting, diarrhea, dysuria, or blood in stool. Independent Historian: Family member, Emerson, reports that he has been complaining of abdominal pain. He has not noticed any slurred speech. Review of External Notes: Medications: Klonopin Seroquel Past Medical History: A-fib Depression Chronic pain disorder Opioid dependence TBI GERD Anxiety Past Surgical History: Left hip arthroplasty Cholecystectomy Physical Exam Patient Vitals for the past 24 hrs: BP Temp Temp src Pulse Resp SpO2 02/14/24 1349 (!) 142/83 -- -- 72 18 98 % 03/25/24 1031 (!) 128/92 97.6 ??F (36.4 ??C) Temporal 74 20 99 % Physical Exam Constitutional: Well appearing. HEENT: Atraumatic. PERRL. EOMI. Moist mucous membranes. Neck: Soft. Supple. No JVD. Cardiac: Regular rate and rhythm. No murmur or rub. Respiratory: Clear to auscultation bilaterally. No respiratory distress. No wheezing, rhonchi, or rales. Abdomen: Soft and nontender. No rebound or guarding. Nondistended. Musculoskeletal: No edema. Normal range of motion. Neurologic: Alert and oriented x3. Normal tone and bulk. No facial drooping. Normal speech. 5/5 strength in bilateral upper and lower extremities. Sensation to light touch intact throughout. Normal gait. Skin: No rashes. No edema. Psych: Normal affect. Normal behavior. Emergency Department Course ECG ECG results from 02/14/24 EKG 12-lead, tracing only Value Systolic Blood Pressure Diastolic Blood Pressure Ventricular Rate 67 Atrial Rate 67 CO Interval 170 QRS Duration 92 QT 402 QTc 424 P Loving 70 R AXIS 3 T Loving 29 Interpretation ECG Sinus rhythm Normal ECG When compared with ECG of 02-AUG-2019 17:21, No significant change was found EKG read by me at 1131. Imaging: MRA Angiogram Neck w/o Contrast Final Result IMPRESSION: Normal MR angiogram of the neck. RENATO HILARIO MD SYSTEM ID: [id number] MRA Angiogram Head w/o Contrast Final Result IMPRESSION: Unremarkable MRA of the head. RENATO HILARIO MD SYSTEM ID: [id number] MR Brain w/o Contrast Final Result IMPRESSION: No restricted diffusion to suggest acute ischemia. RENATO HILARIO MD SYSTEM ID: [id number] CT Abdomen Pelvis w Contrast Preliminary Result IMPRESSION: 1. There are indeterminate renal lesions bilaterally, measuring 2 cm on the right and 2.2 cm on the left; solid renal neoplasm such as renal cell carcinoma cannot be excluded. Renal mass protocol MRI is recommended for further characterization. 2. Small bladder diverticulum posteriorly on the left measures 2.1 cm. Laboratory: Labs Ordered and Resulted from Time of ED Arrival to Time of ED Departure ROUTINE UA WITH MICROSCOPIC REFLEX TO CULTURE - Abnormal Result Value Color Urine Yellow Appearance Urine Clear Glucose Urine Negative Bilirubin Urine Negative Ketones Urine 10 (*) Specific Wentworth Urine 1.019 Blood Urine Negative pH Urine 8.0 (*) Protein Albumin Urine 10 (*) Urobilinogen Urine Normal Nitrite Urine Negative Leukocyte Esterase Urine Negative Mucus Urine Present (*) RBC Urine <1 WBC Urine 1 Hyaline Casts Urine 1 COMPREHENSIVE METABOLIC PANEL - Normal Sodium 139 Potassium 4.3 Carbon Dioxide (CO2) 26 Anion Gap 12 Urea Nitrogen 17.1 Creatinine 0.99 GFR Estimate 80 Calcium 9.8 Chloride 101 Glucose 95 Alkaline Phosphatase 92 AST 17 ALT 17 Protein Total 7.3 Albumin 4.5 Bilirubin Total 0.6 TROPONIN T, HIGH SENSITIVITY - Normal Troponin T, High Sensitivity 17 LIPASE - Normal Lipase 21 LACTIC ACID WHOLE BLOOD - Normal Lactic Acid 1.4 CBC WITH PLATELETS AND DIFFERENTIAL WBC Count 5.9 RBC Count 5.07 Hemoglobin 15.0 Hematocrit 44.8 MCV 88 MCH 29.6 MCHC 33.5 RDW 12.5 Platelet Count 259 % Neutrophils 65 % Lymphocytes 24 % Monocytes 9 % Eosinophils 2 % Basophils 0 % Immature Granulocytes 0 NRBCs per 100 WBC 0 Absolute Neutrophils 3.8 Absolute Lymphocytes 1.4 Absolute Monocytes 0.5 Absolute Eosinophils 0.1 Absolute Basophils 0.0 Absolute Immature Granulocytes 0.0 Absolute NRBCs 0.0 Emergency Department Course & Assessments: Interventions: Medications sodium chloride (PF) 0.9% PF flush 60 mL (has no administration in time range) sodium chloride (PF) 0.9% PF flush 60 mL (has no administration in time range) sodium chloride 0.9% BOLUS 1,000 mL (1,000 mLs Intravenous $New Bag 02/14/24 1139) meclizine (ANTIVERT) tablet 25 mg (25 mg Oral $Given 02/14/24 1140) CT SCAN FLUSH (65 mLs Intravenous $Given 02/14/24 1234) iopamidol (ISOVUE-370) solution 500 mL (100 mLs Intravenous $Given 02/14/24 1234) gadobutrol (GADAVIST) injection 10 mL (10 mLs Intravenous Not Given 02/14/24 1239) gadobutrol (GADAVIST) injection 10 mL (10 mLs Intravenous Not Given 02/14/24 1238) Independent Interpretation (X-rays, CTs, rhythm strip): None Assessments/Consultations/Discussion of Management or Tests: ED Course as of 02/14/24 1400 Mon Feb 14, 2024 111 I obtained history and examined the patient, as noted above. Social Determinants of Health affecting care: None Disposition: The patient was discharged to home. Impression & Plan MIPS (If applicable): N/A Medical Decision Making: Yoshi Almaraz is a 73-year-old man who is afebrile and hemodynamically stable. He is neurologically intact with no focal deficits but expresses ongoing dizziness. MRI of the head with MRA of the vessel imaging revealed no evidence of stroke or significant abnormality to explain his symptoms.His blood work is otherwise reassuring with no signs of infection. He is given IV fluids and had improvement and I question dehydration. He thinks he may be dehydrated as well. CT scan of the abdomenpelvis without acute abnormality discussed his chronic findings and the need for follow-up with primary care physician for further evaluation of renal masses and he is in agreement and understanding.At this point, he is feeling greatly improved and is up and ambulating feels comfortable discharging home with a discharge home which I think is reasonable. I will give him meclizine for home and placed referral for vestibular therapy. Also follow- up close with the primary care physician. He is in agreement his questions were answered. Discussed supportive care at home and strict return precautions were given. His questions were answered and he was in no distress at discharge. Diagnosis: ICD-10-CM 1. Dizziness R42 2. Lightheadedness R42 Discharge Medications: Discharge Medication List as of 02/14/2024 2:07 PM START taking these medications Details meclizine (ANTIVERT) 25 MG tablet Take 1 tablet (25 mg) by mouth 3 times daily as needed for dizziness, Disp-30 tablet, R-0, E-Prescribe Scribe Disclosure: Saúl Serrano, am serving as a scribe at 11:14 AM on 02/14/2024 to document services personally performed by Gallo Wing MD based on my observations and the provider's statements to me. Gallo Wing MD 02/24/24 1102 documented in this encounter Plan of Treatment Scheduled Referrals Name Type Priority Associated Diagnoses Orde r Schedule Physical Therapy Break Out Man Referral Referral Routine: Next available opening Dizziness Expected: 02/14/2024 (Approximate), Expires: 02/13/2025 documented as of this encounter Procedures Procedure Name Priority Date/Time Associated Diagnosis Comments MRA NECK (CAROTIDS) W/O CONTRAST STAT 02/14/2024 1:16 PM CDT MRA BRAIN ([place]) W/O CONTRAST STAT 02/14/2024 1:16 PM CDT MR BRAIN W/O CONTRAST STAT 02/14/2024 1:[address] ABDOMEN PELVIS W CONTRAST STAT 02/14/2024 12:40 PM CDT ROUTINE UA WITH MICROSCOPIC REFLEX TO CULTURE STAT 02/14/2024 11:40 AM CDT LACTIC ACID WHOLE BLOOD STAT 02/14/2024 11:40 AM CDT EKG 12-LEAD, TRACING ONLY STAT 02/14/2024 10:46 AM CDT EXTRA TUBE STAT 02/14/2024 10:43 AM CDT EXTRA RED TOP TUBE STAT 02/14/2024 10 :43 AM CDT EXTRA BLUE TOP TUBE STAT 02/14/2024 1 0:43 AM CDT CBC WITH PLATELETS AND DIFFERENTIAL STAT 02/14/2024 10:43 AM CDT TROPONIN T, HIGH SENSITIVITY STAT 02/14/2024 10:43 AM CDT CBC WITH PLATELETS & DIFFERENTIAL STAT 02/14/2024 10:43 AM CDT LIPASE STAT 02/14/2024 10:43 AM CDT COMPREHENSIVE METABOLIC PANEL STAT 02/14/2024 10:43 AM CDT documented in this encounter Results * MRA Angiogram Neck w/o Contrast (02/14/2024 1:16 PM CDT) Anatomical Region Laterality Modality Neck, Vascular, C-spine, SUB RAD MR NEURO, UMP MR NEURO, RAD MR Magnetic Resonance Impressions 02/14/2024 1:28 PM CDT IMPRESSION: ??Normal MR angiogram of the neck. ?? RENATO HILARIO MD SYSTEM ID: ??[id number] Narrative 02/14/2024 1:28 PM CDT MRA NECK WITHOUT CONTRAST ??02/14/2024 1:16 PM HISTORY: dizziness x 24 hours, history of a fib, eval stroke TECHNIQUE: 2D [id number] MR angiogram of the neck without contrast. [...] of a fib, eval stroke TECHNIQUE: 2D [id number] MR angiogram of the neck without contrast. [...] the neck. RENATO HILARIO MD SYSTEM ID: [id number] Gallo Wing MD IMG MRI ORDERABLES * MRA Angiogram Head w/o Contrast (02/14/2024 1:16 PM CDT) Anatomical Region Laterality Modality Head, SUBRAD MR NEURO, UMP MR NEURO, RAD MR Magnetic Resonance Impressions 02/14/2024 1:28 PM CDT IMPRESSION: Unremarkable MRA of the head. RENATO HILARIO MD SYSTEM ID: ??[id number] Narrative 02/14/2024 1:28 PM CDT MR ANGIOGRAM OF THE HEAD WITHOUT CONTRAST ?? 02/14/2024 1:16 PM HISTORY: dizziness x 24 hours, history of a fib, eval stroke TECHNIQUE: ??3D [id number] MR angiogram of the head without contrast. COMPARISON: None. FINDINGS: type origin of the right MANAGER STERILE PROCESSING. The anterior and middle cerebral arterial distributions are unremarkable. The petrous and cavernous segments of the internal carotid arteries are unremarkable. The basilar artery is patent. The intracranial vertebral arteries are unremarkable. Procedure Note Renato Hilario MD - 02/14/2024 MR ANGIOGRAM OF THE HEAD WITHOUT CONTRAST 02/14/2024 1:16 PM HISTORY: dizziness x 24 hours, history of a fib, eval stroke TECHNIQUE: 3D [id number] MR angiogram of the head without contrast. COMPARISON: None. FINDINGS: type origin of the right MANAGER STERILE PROCESSING. The anterior and middle cerebral arterial distributions are unremarkable. The petrous and cavernous segments of the internal carotid arteries are unremarkable. The basilar artery is patent. The intracranial vertebral arteries are unremarkable. IMPRESSION: Unremarkable MRA of the head. RENATO HILARIO MD SYSTEM ID: [id number] Gallo Wing MD IMG MRI ORDERABLES * MR Brain w/o Contrast (02/14/2024 1:15 PM CDT) Anatomical Region Laterality Modality Head, SUBRAD MR NEURO, UMP MR NEURO, RAD MR Magnetic Resonance Impressions 02/14/2024 1:26 PM CDT IMPRESSION: No restricted diffusion to suggest acute ischemia. RENATO HILARIO MD SYSTEM ID: ??[id number] Narrative 02/14/2024 1:26 PM CDT MRI BRAIN [...] acute ischemia. RENATO HILARIO MD SYSTEM ID: [id number] Gallo Wing MD IMG MRI ORDERABLES * [...] 2.1 cm. FLO LOVE MD SYSTEM ID: ??[id number] Narrative 02/14/2024 4:[address] ABDOMEN/PELVIS [...] 2.1 cm. FLO LOVE MD SYSTEM ID: [id number] Gallo Wing MD IMG CT ORDERABLES * (ABNORMAL) UA with Microscopic reflex to Culture (02/14/2024 11:40 AM CDT) Color Urine Yellow Colorless, Straw, Light Yellow, Yellow 02/14/2024 12:02 PM CDT LABORATORY Appearance Urine Clear Clear 02/14/20 24 12:02 PM CDT LABORATORY Glucose Urine Negative Negative mg/dL 02/14/2024 12:02 PM CDT LABORATORY Bilirubin Urine Negative Negative 12:02 PM CDT LABORATORY Ketones Urine 10(A) Negative mg/dL 02/14/2024 12:02 PM CDT LABORATORY Specific Wentworth Urine 1.019 1.003 - 1.035 02/14/2024 12:02 PM CDT LABORATORY Blood Urine Negative Negative 02/14/2024 12:02 PM CDT LABORATORY pH Urine 8.0(H) 5.0 - 7.0 02/14/2024 12:02 PM CDT LABORATORY Protein Albumin Urine 10(A) Negative mg/dL 02/14/2024 12:02 PM CDT LABORATORY Urobilinogen Urine Normal Normal, 2.0 mg/dL 02/14/2024 12:02 PM CDT LABORATORY Nitrite Urine Negative Negative 02/14/2024 12:02 PM CDT LABORATORY Leukocyte Esterase Urine Negative Negative 02/14/2024 12:02 PM CDT LABORATORY Mucus Urine Present(A) None Seen /LPF 02/14/2024 12:02 PM CDT LABORATORY RBC Urine <1 <=2 /HPF 02/14/2024 12:02 PM CDT LABORATORY WBC Urine 1 <=5 /HPF 02/14/2024 12:02 PM CDT LABORATORY Hyaline Casts Urine 1 <=2 /LPF 02/14/2024 12:02 PM CDT LABORATORY Urine URINE SPECIMEN OBTAINED BY CLEAN CATCH PROCEDURE / Unknown Non-blood Collection / Unknown 02/14/2024 11:40 AM CDT 02/14/2024 11:47 AM CDT Narrative LABORATORY - 02/14/2024 12:02 PM CDT Urine Culture not indicated Gallo Wing MD LAB - URINE ORDERABL ES [facility] [address] Lab (1st floor, no room number) [place] [address] * Lactic acid whole blood (02/14/2024 11:40 AM CDT) Lactic Acid 1.4 0.7 - 2.0 mmol/L 02/14/2024 11:53 AM CDT LABORATORY Blood BLOOD SPECIMEN / Unknown Venipuncture / Unknown 02/14/2024 11:40 AM CDT 02/14/2024 11:48 AM CDT Gallo Wing MD LAB - BLOOD ORDERABL ES Performing Organization Address City/[facility]/ZIP Co de Phone Number [facility] [address] Lab (1st floor, no room number) [place] [phone] * EKG 12-lead, tracing only (02/14/2024 10:46 AM CDT) Systolic Blood Pressure mmHg RADIOLOGY RESULTS Diastolic Blood Pressure mmHg RADIOLOGY RESULTS Ventricular Rate 67 BPM RAD IOLOGY RESULTS Atrial Rate 67 BPM RADIOLOG Y RESULTS CO Interval 170 ms RADIOLOG Y RESULTS QRS Duration 92 ms RADIOLO GY RESULTS QT 402 ms RADIOLOGY RESULTS QTc 424 ms RADIOLOGY RESULTS P Loving 70 degrees RADIOLOGY RESULTS R AXIS 3 degrees RADIOLOGY RESULTS T Loving 29 degrees RADIOLOGY RESULTS Interpretation ECG Sinus rhythm Normal ECG When compared with ECG of 02-AUG-2019 17:21, No significant change was found Unconfirmed report - interpretation of this ECG is computer generated - see medical record for final interpretation Confirmed by - EMERGENCY ROOM, PHYSICIAN ([id number]), editorial clerk Homero Lara ([id number]) on 02/14/2024 10:52:10 AM RADIOLOGY RESULTS 02/14/2024 10:4 6 AM CDT 02/14/2024 10:52 AM CDT Gallo Wing MD ECG ORDERABLES Performing Organization Address City/[facility]/ZIP Co de Phone Number RADIOLOGY RESULTS * Lipase (02/14/2024 10:43 AM CDT) Lipase 21 13 - 60 U/L 02/14/2024 11:51 AM CDT [facility] LABORATORY Blood STRUCTURE OF LEFT UPPER LIMB / Unknown Venipuncture / Unknown 02/14/2024 10:43 AM CDT 02/14/2024 10:53 AM CDT Gallo Wing MD LAB - BLOOD ORDERABL ES Performing Organization Address [facility] Co de Phone Number [facility] [address] Lab (1st floor, no room number) [address] * Extra Red Top Tube (02/14/2024 10:43 AM CDT) Hold Specimen [facility] 02/14/2024 12:08 PM CDT [facility] LABORATORY Blood STRUCTURE OF LEFT UPPER LIMB / Unknown Venipuncture / Unknown 02/14/2024 10:43 AM CDT 02/14/2024 10:53 AM CDT Gallo Wing MD LAB - BLOOD ORDERABL ES Performing Organization Address [facility] Co de Phone Number [facility] [address] Lab (1st floor, no room number) [address] * Extra Blue Top Tube (02/14/2024 10:43 AM CDT) Hold Specimen [facility] 02/14/2024 12:08 PM CDT [facility] LABORATORY Blood STRUCTURE OF LEFT UPPER LIMB / Unknown Venipuncture / Unknown 02/14/2024 10:43 AM CDT 02/14/2024 10:53 AM CDT Gallo Wing MD LAB - BLOOD ORDERABL ES [facility] LABORATORY [facility] [address] Lab (1st floor, no room number) [place] [address], [facility] * CBC with platelets and differential (02/14/2024 [...] MD LAB - BLOOD ORDERABL ES LABORATORY [facility] Lab [address] [facility] Lab (1st floor, no room number) [place] [address], [facility] * Troponin T, High Sensitivity (02/14/2024 10:43 AM CDT) Troponin T, High Sensitivity 17 <=22 ng/L [...] LAB - BLOOD ORDERABL ES RH LABORATORY [facility] Lab [address] Lab (1st floor, no room number) [place] [address], [facility] * Comprehensive metabolic panel (02/14/2024 10:43 AM [...] - 15 mmol/L 02/14/2024 11:15 AM CDT LABORATORY Urea Nitrogen 17.1 8.0 - 23.0 mg/dL 02/14/2024 11:15 AM CDT LABORATORY Creatinine 0.99 0.67 - 1.17 mg/dL 02/14/2024 11:15 AM CDT LABORATORY GFR Estimate 80 >60 mL/min/1. 73m2 02/14/2024 11:15 AM CDT LABORATORY Calcium 9.8 8.8 - 10.2 mg/dL 02/14/2024 11:15 AM CDT LABORATORY Chloride 101 98 - 107 mmol/L 02/14/2024 11:15 AM CDT LABORATORY Glucose 95 70 - 99 mg/dL 02/14/2024 11:15 AM CDT LABORATORY Alkaline Phosphatase 92 40 - 150 U/L 02/14/2024 11:15 AM CDT LABORATORY Comment:Reference intervals [...] MD LAB - BLOOD ORDERABL ES LABORATORY [facility] Lab [address] Lab (1st floor, no room number) [place] [address], [facility] documented in this encounter Visit Diagnoses Diagnosis Dizziness Dizziness and giddiness Lightheadedness Dizziness and giddiness Renal lesion Unspecified disorder of kidney and ureter documented in this encounter Administered Medications Inactive Administered Medications - up to 3 most recent administrations Medication Order MAR Action Action Date Dose Rate Site CT SCAN FLUSH Intravenous, 100 mL, ONCE, On Wed02/14/24 at 1230, For 1 dose, This entry is for use by Radiology to intermittently used as a flush in patients receiving a CT scan. $Given 02/14/2024 12:34 PM CDT 65 mLs iopamidol (ISOVUE-370) solution 500 mL 500 mL, Intravenous, ONCE, On Wed02/14/24 at 1230, For 1 dose $Given 02/14/2024 12:34 PM CDT 100 mLs meclizine (ANTIVERT) tablet 25 mg 25 mg, Oral, ONCE, On Wed02/14/24 at 1130, For 1 dose $Given 02/14/2024 11:40 AM CDT 25 mg sodium chloride 0.9% BOLUS 1,000 mL Intravenous, 1,000 mL, ONCE, at 1,000 mL/hr, Administer over 1 Hours, On Wed02/14/24 at 1130, For 1 dose $New Bag 02/14/2024 11:39 AM CDT 1,000 mLs 1000 mL/hr documented in this encounter Active and Recently Administered Medications Times are shown in CDT. Scheduled Medication Order 02/12/2024 02/13/2024 02/14/2024 CT SCAN FLUSH (COMPLETED) Intravenous, 100 mL, ONCE, On Wed02/14/24 at 1230, For 1 dose, This entry is for use by Radiology to intermittently used as a flush in patients receiving a CT scan. 1234 ($Given - Provi rosemarie: Tarsha Damon) iopamidol (ISOVUE-370) solution 500 mL (COMPLETED) 500 mL, Intravenous, ONCE, On Wed02/14/24 at 1230, For 1 dose 1234 ($Given - Provi rosemarie: Tarsha Damon - Comment: bulk) meclizine (ANTIVERT) tablet 25 mg (COMPLETED) 25 mg, Oral, ONCE, On Wed02/14/24 at 1130, For 1 dose 1140 ($Given - Provi rosemarie: Fiorella Figueroa RN) sodium chloride (PF) 0.9% PF flush 60 mL 60 mL, Intravenous, ONCE, On Wed02/14/24 at 1235, For 1 dose 1235 (Canceled Entry - Provider: Orders Generic Provider - Comment: Automatically canceled at discontinue of medication order) sodium chloride (PF) 0.9% PF flush 60 mL 60 mL, Intravenous, ONCE, On Wed02/14/24 at 1235, For 1 dose 1235 (Canceled Entry - Provider: Orders Generic Provider - Comment: Automatically canceled at discontinue of medication order) sodium chloride 0.9% BOLUS 1,000 mL (COMPLETED) Intravenous, 1,000 mL, ONCE, at 1,000 mL/hr, Administer over 1 Hours, On Wed02/14/24 at 1130, For 1 dose 1139 ($New Bag - Pro vider: Fiorella Figueroa RN)[id number] (Stopped - Provider: Alda Alex RN) documented in this encounter Additional Health Concerns Assessment Noted Time PHQ-9 Depression Total Score: 3 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
--- OUTSIDE RECORDS SUMMARY | 2024-03-09 07:15 | XMS_ITS | Referral Summary ---
Author Name Unknown Organization [facility] Address [address] [place] [address] Care Team Providers Care Photograph Printer Name Role Phone No Ref-Primary, Physician Primary Care Provider Encounters Date Type Department Care Team Description 02/14/2024 Travel 02/14/2024 11:01 AM CDT - 02/14/2024 2:[address] [facility] Emergency Dept [address] [place] [address] Gallo iWng MD Dizziness; Lightheadedness; Renal lesion Discharge Disposition: Home or Self Care from Last 3 Months Allergies Active Allergy Reactions Criticality Noted Date Comments Amiodarone Other (See Comments) Medium 10/17/2018 Terrible pain, can't speak, burning pain Amitriptyline Other (See Comments) Medium 08/21/2015 syncope Hydrocodone Other (See Comments) Medium 06/20/2019 [place] high Melatonin Other (See Comments) Low 08/18/2019 [...] Overview: Added automatically from request for surgery [id number] History of falling 08/31/2018 Anal fissure 07/13/2018 [...] Overview: Added automatically from request for surgery [id number] 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 ?? RENATO HILARIO MD SYSTEM ID: ??[id number] Narrative 02/14/2024 1:28 PM CDT MRA NECK WITHOUT CONTRAST ??02/14/2024 1:16 PM HISTORY: dizziness x 24 hours, history of a fib, eval stroke TECHNIQUE: 2D [id number]-iz-myafpa MR angiogram of the neck without contrast. [...] of a fib, eval stroke TECHNIQUE: 2D ludl-by-vxvayd MR angiogram of the neck without contrast. [...] the neck. RENATO HILARIO MD SYSTEM ID: [id number] Galol Wing MD [facility] MRI ORDERABLES * MRA Angiogram Head w/o Contrast (02/14/2024 1:16 PM CDT) Anatomical Region Laterality Modality Head, SUBRAD MR NEURO, UMP MR NEURO, RAD MR Magnetic Resonance Impressions 02/14/2024 1:28 PM CDT IMPRESSION: Unremarkable MRA of the head. RENATO HILARIO MD SYSTEM ID: ??[id number] Narrative 02/14/2024 1:28 PM CDT MR ANGIOGRAM OF THE HEAD WITHOUT CONTRAST ?? 02/14/2024 1:16 PM HISTORY: dizziness x 24 hours, history of a fib, eval stroke TECHNIQUE: ??3D [id number]-mu-rebifd MR angiogram of the head without contrast. COMPARISON: None. 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 The anterior and middle cerebral arterial distributions are unremarkable. The petrous and cavernous segments of the internal carotid arteries are unremarkable. The basilar artery is patent. The intracranial vertebral arteries are unremarkable. Procedure Note Renato Hilario MD - 02/14/2024 MR ANGIOGRAM OF THE HEAD WITHOUT CONTRAST 02/14/2024 1:16 PM HISTORY: dizziness x 24 hours, history of a fib, eval stroke TECHNIQUE: 3D [id number]-pr-axqqtm MR angiogram of the head without contrast. COMPARISON: None. 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 The anterior and middle cerebral arterial distributions are unremarkable. The petrous and cavernous segments of the internal carotid arteries are unremarkable. The basilar artery is patent. The intracranial vertebral arteries are unremarkable. IMPRESSION: Unremarkable MRA of the head. RENATO HILARIO MD SYSTEM ID: [id number] Gallo Wing MD [facility] MRI ORDERABLES * MR Brain w/o Contrast (02/14/2024 1:15 PM CDT) Anatomical Region Laterality Modality Head, SUBRAD MR NEURO, UMP MR NEURO, RAD MR Magnetic Resonance Impressions 02/14/2024 1:26 PM CDT IMPRESSION: No restricted diffusion to suggest acute ischemia. RENATO HILARIO MD SYSTEM ID: ??[id number] Narrative 02/14/2024 1:26 PM CDT MRI BRAIN [...] acute ischemia. RENATO HILARIO MD SYSTEM ID: [id number] Gallo Wing MD IMG MRI ORDERABLES * [...] 2.1 cm. FLO LOVE MD SYSTEM ID: ??[id number] Narrative 02/14/2024 4:[address] ABDOMEN/PELVIS [...] 2.1 cm. FLO LOVE MD SYSTEM ID: [id number] Gallo Wing MD IMG CT ORDERABLES * (ABNORMAL) UA with Microscopic reflex to Culture (02/14/2024 11:40 AM CDT) Color Urine Yellow Colorless, Straw, Light Yellow, Yellow 02/14/2024 12:02 PM CDT LABORATORY Appearance Urine Clear Clear 02/14/20 24 12:02 PM CDT LABORATORY Glucose Urine Negative Negative mg/dL 02/14/2024 12:02 PM CDT LABORATORY Bilirubin Urine Negative Negative 12:02 PM T LABORATORY Ketones Urine 10(A) Negative mg/dL 02/14/2024 12:02 PM CDT LABORATORY Specific [place] Urine 1.019 1.003 - 1.035 02/14/2024 12:02 [...] 1 <=5 /HPF 02/14/2024 12:02 PM CDT RH LABORATORY Hyaline Casts Urine 1 <=2 /LPF 02/14/2024 12:02 PM CDT RH LABORATORY Urine URINE SPECIMEN OBTAINED BY CLEAN CATCH PROCEDURE / Unknown Non-blood Collection / Unknown 02/14/2024 11:40 AM CDT 02/14/2024 11:47 AM CDT Narrative RH LABORATORY - 02/14/2024 12:02 PM CDT Urine Culture not indicated Gallo Wing MD LAB - URINE ORDERABL ES Performing Organization Address City/[facility]/ZIP Co de Phone Number [facility] Lab [address] Lab (1st floor, no room number) [place] [phone] * Lactic acid whole blood (02/14/2024 11:40 AM CDT) Lactic Acid 1.4 0.7 - 2.0 mmol/L 02/14/2024 11:53 AM CDT RH LABORATORY Blood BLOOD SPECIMEN / Unknown Venipuncture / Unknown 02/14/2024 11:40 AM CDT 02/14/2024 11:48 AM CDT Gallo Wing MD LAB - BLOOD ORDERABL ES [facility] Lab [address] Lab (1st floor, no room number) [place] [address] * EKG 12-lead, tracing only (02/14/2024 10:46 AM CDT) Systolic Blood Pressure mmHg RADIOLOGY RESULTS Diastolic Blood Pressure mmHg RADIOLOGY RESULTS Ventricular Rate 67 BPM RAD IOLOGY RESULTS Atrial Rate 67 BPM RADIOLOG Y RESULTS ID Interval 170 ms RADIOLOG Y RESULTS QRS Duration 92 ms RADIOLO GY RESULTS QT 402 ms RADIOLOGY RESULTS QTc 424 ms RADIOLOGY RESULTS P [place] 70 degrees RADIOLOGY RESULTS R AXIS 3 degrees RADIOLOGY RESULTS T [place] 29 degrees RADIOLOGY RESULTS Interpretation ECG Sinus rhythm Normal ECG When compared with ECG of 02-AUG-2019 17:21, No significant change was found Unconfirmed report - interpretation of this ECG is computer generated - see medical record for final interpretation Confirmed by - EMERGENCY ROOM, PHYSICIAN ([id number]), fan mail editor Homero Lara ([id number]) on 02/14/2024 10:52:10 AM RADIOLOGY RESULTS 02/14/2024 10:4 6 AM CDT 02/14/2024 10:52 AM CDT Gallo Wing MD ECG ORDERABLES Performing Organization Address City/[facility]/ZIP Co de Phone Number RADIOLOGY RESULTS * Extra Red Top Tube (02/14/2024 10:43 AM CDT) Hold Specimen [facility] 02/14/2024 12:08 PM CDT RH LABORATORY Blood STRUCTURE OF LEFT UPPER LIMB / Unknown Venipuncture / Unknown 02/14/2024 10:43 AM CDT 02/14/2024 10:53 AM CDT Gallo Wing MD LAB - BLOOD ORDERABL ES Performing Organization Address [facility]/ZIP Co de Phone Number [facility] Lab [address] Lab (1st floor, no room number) [place] [address], [facility] * Extra Blue Top Tube (02/14/2024 10:43 AM CDT) Hold Specimen [facility] 02/14/2024 12:08 PM CDT RH LABORATORY Blood STRUCTURE OF LEFT UPPER LIMB / Unknown Venipuncture / Unknown 02/14/2024 10:43 AM CDT 02/14/2024 10:53 AM CDT Gallo Wing MD LAB - BLOOD ORDERABL ES Performing Organization Address City/[facility]/ZIP Co de Phone Number [facility] Lab [address] Lab (1st floor, no room number) [place] [phone] * CBC with platelets and differential (02/14/2024 [...] LAB - BLOOD ORDERABL ES RH LABORATORY [facility] Lab [address] [facility] Lab (1st floor, no room number) [place] [address] * Troponin T, High Sensitivity (02/14/2024 10:43 AM CDT) [facility] Troponin T, High Sensitivity 17 <=22 ng/L [...] MD LAB - BLOOD ORDERABL ES LABORATORY [facility] Lab [address] Lab (1st floor, no room number) [address] * Lipase (02/14/2024 10:43 AM CDT) Lipase 21 13 - 60 U/L 02/14/2024 11:51 AM CDT LABORATORY Blood STRUCTURE OF LEFT UPPER LIMB / Unknown Venipuncture / Unknown 02/14/2024 10:43 AM CDT 02/14/2024 10:53 AM CDT Gallo Wing MD LAB - BLOOD ORDERABL ES Performing Organization Address [facility]/ZIP Co de Phone Number LABORATORY [facility] Lab [address] Lab (1st floor, no room number) [place] [phone] * Comprehensive metabolic panel (02/14/2024 10:43 AM CDT) Sodium 139 135 - 145 mmol/L 02/14/2024 11:15 AM CDT RH LABORATORY Comment:Reference [...] - 29 mmol/L 02/14/2024 11:15 AM CDT RH LABORATORY Anion Gap 12 7 - 15 mmol/L 02/14/2024 11:15 AM CDT RH LABORATORY Urea Nitrogen 17.1 8.0 - 23.0 mg/dL 02/14/2024 11:15 AM CDT RH LABORATORY Creatinine 0.99 0.67 - 1.17 mg/dL 02/14/2024 11:15 AM CDT RH LABORATORY GFR Estimate 80 >60 mL/min/1. 73m2 02/14/2024 11:15 AM CDT RH LABORATORY Calcium 9.8 8.8 - 10.2 mg/dL 02/14/2024 11:15 AM CDT RH LABORATORY Chloride 101 98 - 107 mmol/L [...] Wing MD LAB - BLOOD ORDERABL ES [facility] Acute Care Lab [address] [facility] Lab (1st floor, no room number) [place] [address], [facility] from Last 3 Months Advance Directives For more information, please contact: [phone] * Full Code (Latest Code Status on File) Date Activated Date Inactivated Comments 08/03/2019 1:22 PM 02/14/2024 10:28 AM Question Answer Comments Code status determined by: Discussion with jenn nt/legal decision maker * Full Code Date Activated Date Inactivated Comments 08/02/2019 5:13 PM 08/03/2019 1:22 PM Question Answer Comments Code status determined by: Discussion with jenn nt/legal decision maker Care Teams Photograph Printer Relationship Specialty Start Date End Date No Ref-Primary, Physician PCP - General 10/23/19
--- OUTSIDE RECORDS SUMMARY | 2024-03-09 07:15 | XMS_ITS | Clinical Summary ---
Author Name Unknown Organization [email or web address] Address [place], [place] [address] Care Team Providers Care Assistant Professor Of Radiology Name Role Phone Charbel Dominguez MD Primary Care Provider [phone] Allergies Active Allergy Reactions Criticality Noted Date Comments Amiodarone Other - Describe In Comment Field 10/17/2018 Terrible pain, can't speak, burning pain Amitriptyline Other - Describe In Comment Field Medium 08/21/2015 Atrial fib. syncope Hydrocodone Other - Describe In Comment Field High 06/20/2019 [place] high Melatonin Other - Describe In Comment Field 08/18/2019 Nightmares Metoprolol Other - Describe In Comment Field,*Unknown - Follow up needed Medium 08/21/2015 syncope Mirtazapine Hallucinations High 08/21/2015 Olanzapine Other - Describe In Comment Field 06/13/2019 Trouble with eyes and body pain Medications Medication Sig Dispensed Refills Start Date End Date Status FLUoxetine (PROZAC) 10 mg capsule Take 10 mg by mouth. 09/26/2019 Active diltiazem (CARDIZEM) 60 mg tablet Take 1 tablet by mouth once daily if needed for Other (Specify) (palpitations). 0 10/24/2019 Active clonazePAM (KLONOPIN) 1 mg tablet Take 1 mg by mouth 3 times daily if needed. 0.5mg TID PRN 0 10/24/2019 Active multivitamin (MVI) tablet Take 1 tablet by mouth once daily. Active glucosam-chondroitin -diet cb25 116-100 mg cap Take 1 tablet by mouth once daily. Active QUEtiapine (SEROQUEL) Take 50 mg by mouth at bedtime. Active amoxicillin (AMOXIL) 500 mg capsule Take 1 capsule by mouth 3 times daily. 30 capsule 02/20/2020 Active Social History Tobacco Use Types [...] 12+ 12/19/2020 12/19/19 20 COVID-19 vaccine series (3 - season) 2023 02/14/2021, 01/24/2021 Influenza for age 65+ 07/23/2024 Advance Directives * Full Code (Latest Code Status on File) Date Activated Date Inactivated Comments 12/19/2019 11:44 AM 12/20/2019 1:45 PM Question Answer Comments Code Status Discussion: Not Discussed Care Teams Assistant Professor Of Radiology Relationship Specialty Start Date End Date Charbel Dominguez MD [id number] [place] [address] PCP - General Family Practice 09/15/19
--- NOTE | 2024-03-09 08:28 | P.ANES_ITS ---
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
--- NOTE | 2024-03-09 10:37 | W.ANESCHARGE ---
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
== END 2024-03-09 07:13 | disposition home or self-care (01) ==
LOC: OP CLINIC 07:12
PROVIDERS: PCP Family Medicine; Visit Provider Surgery
DX: R10.84 Generalized abdominal pain (principal)
CPT/HCPCS: 00731; 43239; 88305; 99100; J2704